=== PATIENT | female | born 1965 | race Caucasian/White ===

== ENCOUNTER 2017-05-01 00:32 | Emergency (ER) | payer MEDICAID ==
[2017-05-01] MEDS ORDERED: PROCHLORPERAZINE 10 MG/2 ML VIAL IVP STA (00:58)
[2017-05-01] MEDS ORDERED: DEXAMETHASONE 10 MG/ML VIAL ONE (00:58)
[2017-05-01] MEDS ORDERED: diphenhydrAMINE INJ 50 MG/ML VIAL IVP STA (00:58)
[2017-05-01] MEDS ORDERED: PROCHLORPERAZINE 10 MG/2 ML VIAL ONE (00:58)
[2017-05-01] MEDS ORDERED: KETOROLAC 60 MG/2 ML VIAL IVP STA (00:58)
[2017-05-01] MEDS ORDERED: KETOROLAC 30 MG/ML VIAL ONE (00:58)
[2017-05-01] MEDS ORDERED: SODIUM CHLORIDE 0.9% 1,000 ML IV ONE ×2 (00:58→00:59)
[2017-05-01] MEDS ORDERED: diphenhydrAMINE INJ 50 MG/ML VIAL ONE (00:58)
[2017-05-01] MEDS ORDERED: DEXAMETHASONE 10 MG/ML VIAL IVP STA (00:58)
--- NOTE | 2017-05-01 01:15 | ED Physician Documentation ---
PD HPI HEADACHE - Stated complaint Stated Complaint: HEADACHE - Chief complaint Chief Complaint: Neuro - History obtained from History obtained from: Patient - History of Present Illness Timing - onset: Enter time (2199), Today Timing - onset during: Rest Timing - duration: Hours Timing - details: Abrupt onset, Still present Worst headache ever?: Worst headache ever? Location: Global Quality: Throbbing Associated symptoms: No: Fever, Stiff neck, Nausea, Vomiting, Weakness, Numbness , Syncope, Seizure, Eye pain, Vision changes Improved by: Rest, Dark room, Quiet Worsened by: Light, Noise, Moving Contributing factors: No: Anticoagulated Similar symptoms before: Diagnosis (migraine) Recently seen: Not recently seen - Additional information Additional information: 51-year-old female with a history of migraines has not had a migraine for about 2 years today she has developed a severe headache and photophobia. She had onset of symptoms at about 10:30 PM tonight. She has been having headaches for the past week on and off. She has not had migraine symptoms for some time. Review of Systems Constitutional: denies: Fever, Chills, Myalgias, Fatigue, Sweats Eyes: reports: Photophobia. denies: Loss of vision, Decreased vision Ears: denies: Loss of hearing, Ear pain Nose: denies: Rhinorrhea / runny nose, Congestion, Foreign Body Throat: denies: Sore throat Cardiac: denies: Chest pain / pressure, Palpitations Respiratory: denies: Dyspnea, Cough, Wheezing GI: reports: Nausea, Vomiting. denies: Abdominal Pain : denies: Dysuria, Frequency Neurologic: reports: Difficulty speaking (at onset of this headache), Headache. denies: Generalized weakness, Focal weakness, Numbness, Syncope, Seizure, Confused, Head injury PD PAST MEDICAL HISTORY - Past Medical History Neuro: Headache/migraine - Past Surgical History Past Surgical History: Yes General: Cholecystectomy Ortho: ACL reconstruction - Allergies Allergies/Adverse Reactions: Allergies Allergy/AdvReac Type Severity Reaction Status Date / Time No Known Drug Allergies Allergy Verified 05/01/17 00:41 - Social History Does the pt smoke?: Yes Smoking Status: Current every day smoker Does the pt drink ETOH?: No Does the pt have substance abuse?: Yes - Immunizations Immunizations are current?: No Immunizations: TDAP >10years/unknown - POLST Patient has POLST: No PD ED PE NORMAL - Vitals Vital signs reviewed: Yes (hypertensive ) - General General: Well developed/nourished, Other (The patient is moaning in pain with a towel over her eyes. 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 operator helper 2-12 intact, No motor deficit, No sensory deficit, Normal speech - Psych Psych: Other (mood is painful and affect is flat) Results - Vitals Vitals: Vital Signs - 24 hr 05/01/17 05/01/17 05/01/17 00:38 01:05 01:09 Temperature 36.4 C L Heart Rate 85 92 81 Respiratory 20 20 18 Rate Blood Pressure 185/101 H 179/108 H 170/96 H O2 Saturation 100 99 99 05/01/17 05/01/17 01:49 02:57 Temperature 36.2 C L Heart Rate 82 90 Respiratory 16 16 Rate Blood Pressure 179/98 H 170/76 H O2 Saturation 94 96 Oxygen O2 Source Room air - Rads (name of study) CT head without Radiology: Prelim report reviewed (Impression: Large volume subarachnoid hemorrhage and moderate ventricular megaly.), EMP read indepedently, See rad report PD MEDICAL DECISION MAKING - ED course Complexity details: considered differential, d/w patient, d/w family ED course: 51-year-old female presents to the emergency department with severe migraine headache she is administered a cocktail of Toradol dexamethasone Compazine Benadryl and 1 L of saline intravenously. The patient does appear to respond to the treatment with improvement in her headache and she is quite sleepy. CT examination of the head reveals extensive subarachnoid hemorrhage.Arrangements are made with the transfer center at [facility] and she will be transferred by [facility]. Dr. Tab Shrestha is the accepting physician. Departure - Departure Disposition: 02 Transfer Acute Care Hosp Clinical Impression: Subarachnoid hemorrhage Condition: Serious
--- NOTE | 2017-05-01 03:20 | CT Preliminary Report ---
Exam: CT Head W/O IMPRESSION: Large volume subarachnoid hemorrhage and moderate ventriculomegaly. RADIA The above findings were discussed with provider Eusebio by Dr. Danilo Bello at 03:18 hrs on 05/01/17 . SITE ID: [id number]
--- NOTE | 2017-05-01 03:23 | CT Report ---
EXAM: CT HEAD EXAM DATE: 05/01/2017 03:02 AM. CLINICAL HISTORY: Severe headache. COMPARISON: None. TECHNIQUE: Multiaxial CT images were obtained from the foramen magnum to the vertex. IV contrast: Non e. Reformats: Coronal. In accordance with CT protocol optimization, one or more of the following dose reduction techniques w ere utilized for this exam: automated exposure control, adjustment of mA and/or KV based on patient s ize, or use of iterative reconstructive technique. FINDINGS: Parenchyma: No intraparenchymal hemorrhage. No evidence of mass, midline shift, or CT findings of inf arction. [place]-white differentiation is distinct. Extraaxial Spaces: There is moderate volume subarachnoid hemorrhage involving anterior interhemispher ic fissure, bilateral sylvian fissures, and suprasellar cistern. Ventricles: There is moderate ventriculomegaly. There is small volume intraventricular hemorrhage. Sinuses: There is mild paranasal sinus mucosal thickening. No sinus fluid levels. Bones: No evidence of fracture or calvarial defect. Other: None. IMPRESSION: Large volume subarachnoid hemorrhage and moderate ventriculomegaly. RADIA The above findings were discussed with provider Eusebio by Dr. Danilo Bello at 03:18 hrs on 05/01/17 . Referring Provider Line: [phone] SITE ID: [id number]
[2017-05-01 04:12] VITALS: BP 156/69
== END 2017-05-01 04:12 | disposition short-term general hospital (02) ==
LOC: ED 00:32
DX: I60.9 Nontraumatic subarachnoid hemorrhage, unspecified (principal); H53.8 Other visual disturbances; F17.200 Nicotine dependence, unspecified, uncomplicated
CPT/HCPCS: 70450; 96361; 96374; 96375; 99284; 99285

== ENCOUNTER 2017-05-23 08:48 | Outpatient (CLI) | payer MEDICAID ==
[2017-05-23 13:32] LABS: CHOL/HDL RATIO 5.6 (<4.4); CHOLESTEROL 217 mg/dL; HDL CHOLESTEROL 39 mg/dL; LDL/HDL RATIO 3.2 (<4.4); SODIUM 138 mmol/L (135-145); TRIGLYCERIDES 259 mg/dL; VLDL CHOLESTEROL 52 mg/dL
== END 2017-05-23 08:49 | disposition home or self-care (01) ==
LOC: LAB.N 08:48
PROVIDERS: ATTEND Nurse Practitioner Family
DX: Z13.220 Encounter for screening for lipoid disorders (principal); E87.1 Hypo-osmolality and hyponatremia
CPT/HCPCS: 36415; 80061; 84295

== ENCOUNTER 2017-06-10 08:18 | Outpatient (CLI) | payer MEDICAID ==
--- NOTE | 2017-06-12 12:12 | Mammography Report ---
DIGITAL BILATERAL SCREENING MAMMOGRAM: 06/10/2017 CLINICAL HISTORY: Asymptomatic 51-year-old female, baseline study. FINDINGS: Heterogeneously dense tissue is present. This pattern does limit mammographic sensitivity. RIGHT BREAST: No definite suspicious mass, distortion or pleomorphic calcifications. LEFT BREAST: There is an obscured mass in the upper-outer middle position. Recommend targeted diagnostic evaluation. The remainder of the parenchymal pattern is unremarkable. IMPRESSION: 1. RIGHT BREAST: NO SUSPICIOUS FINDINGS (BIRADS CATEGORY: 1, NEGATIVE). 2. LEFT BREAST: OBSCURED MASS ASYMMETRY IN THE UPPER-OUTER MIDDLE POSITION. RECOMMEND TARGETED DIAGNOSTIC EVALUATION. THE FINAL IMPRESSION IS PENDING AT THIS TIME. (BIRADS CATEGORY: 0, INCOMPLETE). STANDARD QUALIFYING STATEMENTS 1. This examination was reviewed with the aid of Computed-Aided Detection (CAD) . 2. A negative or benign imaging report should not delay biopsy if clinically suspicious findings are present. Consider surgical consultation if warranted. More than 5% of cancers are not identified by imaging. 3. Dense breasts may obscure an underlying neoplasm. JOB #: [id number] EXT JOB #: [id number] BE
== END 2017-06-10 08:19 | disposition home or self-care (01) ==
LOC: DI 08:18
PROVIDERS: ATTEND Nurse Practitioner Family
DX: Z12.31 Encounter for screening mammogram for malignant neoplasm of breast (principal); N63 Unspecified lump in breast
CPT/HCPCS: 77067

== ENCOUNTER 2017-07-10 09:09 | Outpatient (CLI) | payer MEDICAID ==
--- NOTE | 2017-07-10 12:26 | Ultrasound Report ---
ULTRASOUND LEFT UPPER OUTER QUADRANT: 07/10/2017 CLINICAL INDICATION: Persistent circumscribed nodule on mammogram. TECHNIQUE: Real-time scanning was performed with sales representative door to door static images obtained. FINDINGS: Ultrasound of the left upper outer quadrant was performed. At the 12:30 position, approxi mately 10 cm from the nipple, there is a 1.5 x 1.3 x 0.8 cm simple cyst. Just adjacent to this is a second, 1.1 x 1.0 x 0.6 cm cyst. No sonographically suspicious findings are identified. IMPRESSION: SIMPLE CYSTS, ACCOUNTING FOR THE MAMMOGRAPHIC ABNORMALITY. RECOMMENDATION: Routine annual screening unless otherwise clinically indicated. BIRADS CATEGORY 2 - BENIGN FINDINGS. JOB #: [id number] EXT JOB #:
--- NOTE | 2017-07-10 12:28 | Mammography Report ---
DIGITAL DIAGNOSTIC LEFT MAMMOGRAM: 07/10/2017 CLINICAL INDICATION: Possible nodule on baseline. TECHNIQUE: Left true lateral and spot compression views. COMPARISON: 06/10/2017 FINDINGS: The left breast again demonstrates heterogeneously dense fibroglandular parenchyma. In th e left upper, slightly outer posterior breast, a circumscribed 1.5 cm nodule persists on additional c ompression. No associated calcifications are seen. Please also refer to left breast ultrasound of t he same day. IMPRESSION: BENIGN FINDINGS, WITH SIMPLE CYSTS ON ULTRASOUND ACCOUNTING FOR THE MAMMOGRAPHIC ABNORMA LITY. RECOMMENDATION: Routine annual screening unless otherwise clinically indicated. BIRADS CATEGORY 2 - BENIGN FINDINGS. STANDARD QUALIFYING STATEMENTS 1. This examination was reviewed with the aid of Computer-Aided Detection (CAD). 2. A negative or benign imaging report should not delay biopsy if clinically suspicious findings are present. Consider surgical consultation if warranted. More than 5% of cancers are not identified by i maging. 3. Dense breasts may obscure an underlying neoplasm. JOB #: [id number] EXT JOB #:[id number]
== END 2017-07-10 09:10 | disposition home or self-care (01) ==
LOC: DI 09:09
PROVIDERS: ATTEND Nurse Practitioner Family
DX: N60.02 Solitary cyst of left breast (principal)
CPT/HCPCS: 76642

== ENCOUNTER 2017-07-31 10:41 | Day surgery (SDC) | payer MEDICAID ==
[2017-07-31] MEDS ORDERED: fentaNYL 100 MCG/2 ML VIAL IVP ONE (10:42)
[2017-07-31] MEDS ORDERED: MIDAZOLAM 2 MG/2 ML VIAL IVP ONE (10:42)
[2017-07-31] MEDS ORDERED: LACTATED RINGERS 1,000 ML IV ONE ×3 (11:14→13:56)
[2017-07-31 11:18] LABS: HCG UR QUAL NEGATIVE
[2017-07-31 15:14] VITALS: BP 130/58
== END 2017-07-31 10:42 | disposition home or self-care (01) ==
LOC: SDS 10:41
PROVIDERS: ATTEND Surgery
PROC: 0DBL8ZZ Excision of Transverse Colon, Via Natural or Artificial Opening Endoscopic (ICD-10-PCS; 2017-07-31)
PROC: 0DBN8ZZ Excision of Sigmoid Colon, Via Natural or Artificial Opening Endoscopic (ICD-10-PCS; principal; 2017-07-31 12:00)
DX: Z12.11 Encounter for screening for malignant neoplasm of colon (principal); D12.5 Benign neoplasm of sigmoid colon; D12.3 Benign neoplasm of transverse colon; K64.8 Other hemorrhoids; F15.10 Other stimulant abuse, uncomplicated; F17.210 Nicotine dependence, cigarettes, uncomplicated
CPT/HCPCS: 45380; 81025; J7120

== ENCOUNTER 2018-05-26 08:00 | Outpatient (CLI) | payer MEDICAID ==
[2018-05-26 13:16] LABS: CHOL/HDL RATIO 4.3 (<4.4); CHOLESTEROL 154 mg/dL; HDL CHOLESTEROL 36 mg/dL; LDL CHOLESTEROL,CALCULATED 83 mg/dL; LDL/HDL RATIO 2.3 (<4.4); VLDL CHOLESTEROL 35 mg/dL
== END 2018-05-26 08:01 | disposition home or self-care (01) ==
LOC: LAB.N 08:00
PROVIDERS: ATTEND Nurse Practitioner Family
DX: E78.5 Hyperlipidemia, unspecified (principal)
CPT/HCPCS: 36415; 80061; 83721

== ENCOUNTER 2018-06-09 08:00 | Outpatient (CLI) | payer MEDICAID ==
[2018-06-09 13:51] LABS: BASOPHILS # (AUTO) 0.1 10^3/uL (0.0-0.1); BASOPHILS % (AUTO) 1.1 %; EOSINOPHILS # (AUTO) 0.1 10^3/uL (0.0-0.7); HGB - HEMOGLOBIN 9.1 g/dL (12.0-16.0); LYMPHOCYTES # (AUTO) 1.5 10^3/uL (1.5-3.5); LYMPHOCYTES % (AUTO) 15.5 %; MEAN CORPUSCULAR HEMOGLOBIN 23.7 pg (27.0-31.0); MEAN CORPUSCULAR HGB CONC 30.6 g/dL (32.0-36.0); MEAN CORPUSCULAR VOLUME 77.6 fL (81.0-99.0); MEAN PLATELET VOLUME 8.7 fL (7.9-10.8); MONOCYTES # (AUTO) 0.5 10^3/uL (0.0-1.0); NEUTROPHILS # (AUTO) 7.7 10^3/uL (1.5-6.6); NEUTROPHILS % (AUTO) 77.4 %; PLT - PLATELET COUNT 443 10^3/uL (130-450); RED BLOOD COUNT 3.82 10^6/uL (4.20-5.40); RED CELL DISTRIBUTION WIDTH 17.1 % (12.0-15.0); WHITE BLOOD COUNT 9.9 x10^3/uL (4.8-10.8)
[2018-06-09 14:17] LABS: ALBUMIN 3.1 g/dL (3.2-5.5); ALBUMIN/GLOBULIN RATIO 0.8 (1.0-2.2); BILIRUBIN,TOTAL 0.7 mg/dL (0.2-1.0); CALCIUM 8.1 mg/dL (8.5-10.3); CREATININE 0.7 mg/dL (0.4-1.0); TOTAL PROTEIN 7.2 g/dL (6.7-8.2)
[2018-06-09 15:10] LABS: HB2 TOTAL 9.6 g/dL; HEMOGLOBIN A1C 0.41 g/dL; HEMOGLOBIN A1C % 6.1 % (4.6-6.2)
== END 2018-06-09 08:01 | disposition home or self-care (01) ==
LOC: LAB.N 08:00
PROVIDERS: ATTEND Nurse Practitioner Family
DX: R03.0 Elevated blood-pressure reading, without diagnosis of hypertension (principal); E78.1 Pure hyperglyceridemia
CPT/HCPCS: 36415; 80053; 83036; 84443; 85025

== ENCOUNTER 2018-06-11 09:17 | Outpatient (CLI) | payer MEDICAID ==
[2018-06-11 19:24] LABS: % IRON SATURATION 4 % (20-50); IRON 22 ug/dL (28-170); TOTAL IRON BINDING CAPACITY 567 ug/dL (250-450); TRANSFERRIN 405 mg/dL (192-382)
[2018-06-12 12:03] LABS: HEPATITIS C ANTIBODY NON-REACTIVE (NON-REACTIVE)
[2018-06-12 12:16] LABS: HEPATITIS B SURFACE ANTIGEN NON-REACTIVE (NON-REACTIVE)
== END 2018-06-11 09:18 | disposition home or self-care (01) ==
LOC: LAB.N 09:17
PROVIDERS: ATTEND Nurse Practitioner Family
DX: D50.9 Iron deficiency anemia, unspecified (principal); R94.5 Abnormal results of liver function studies
CPT/HCPCS: 36415; 82728; 83540; 84466; 86317; 86704; 86709; 86803; 87340

== ENCOUNTER 2018-06-22 08:00 | Outpatient (CLI) | payer MEDICAID | END 2018-06-22 08:01 | disposition home or self-care (01) | LOC: LAB.N 08:00 | PROVIDERS: ATTEND Nurse Practitioner Family | DX: I10 Essential (primary) hypertension (principal) | CPT/HCPCS: 36415; 84132 ==

== ENCOUNTER 2018-06-26 08:17 | Outpatient (CLI) | payer MEDICAID | END 2018-06-26 08:18 | disposition home or self-care (01) | LOC: LAB.N 08:17 | PROVIDERS: ATTEND Nurse Practitioner Family | DX: R06.09 Other forms of dyspnea (principal) | CPT/HCPCS: 36415; 83880; 85379 ==

== ENCOUNTER 2018-07-03 07:55 | Outpatient (CLI) | payer MEDICAID ==
[2018-07-03 12:27] LABS: BASOPHILS # (AUTO) 0.1 10^3/uL (0.0-0.1); BASOPHILS % (AUTO) 1.1 %; EOSINOPHILS # (AUTO) 0.1 10^3/uL (0.0-0.7); EOSINOPHILS % (AUTO) 0.7 %; HGB - HEMOGLOBIN 9.7 g/dL (12.0-16.0); LYMPHOCYTES # (AUTO) 1.6 10^3/uL (1.5-3.5); LYMPHOCYTES % (AUTO) 16.4 %; MEAN CORPUSCULAR HEMOGLOBIN 24.7 pg (27.0-31.0); MEAN CORPUSCULAR HGB CONC 30.4 g/dL (32.0-36.0); MEAN CORPUSCULAR VOLUME 81.1 fL (81.0-99.0); MEAN PLATELET VOLUME 8.2 fL (7.9-10.8); MONOCYTES # (AUTO) 0.5 10^3/uL (0.0-1.0); MONOCYTES % (AUTO) 5.5 %; NEUTROPHILS # (AUTO) 7.4 10^3/uL (1.5-6.6); NEUTROPHILS % (AUTO) 76.3 %; PLT - PLATELET COUNT 490 10^3/uL (130-450); RED BLOOD COUNT 3.94 10^6/uL (4.20-5.40); WHITE BLOOD COUNT 9.7 x10^3/uL (4.8-10.8)
[2018-07-03 13:19] LABS: ALBUMIN 3.7 g/dL (3.2-5.5); ALBUMIN/GLOBULIN RATIO 0.9 (1.0-2.2); CALCIUM 8.8 mg/dL (8.5-10.3); CREATININE 0.9 mg/dL (0.4-1.0); TOTAL PROTEIN 7.7 g/dL (6.7-8.2)
== END 2018-07-03 07:56 | disposition home or self-care (01) ==
LOC: LAB.N 07:55
PROVIDERS: ATTEND Nurse Practitioner Family
DX: R06.02 Shortness of breath (principal)
CPT/HCPCS: 36415; 80053; 82947; 85025

== ENCOUNTER 2018-07-04 07:56 | Outpatient (CLI) | payer MEDICAID ==
--- NOTE | 2018-07-04 16:49 | XRAY Report ---
Reason: SHORTNESS OF BREATH WITH EXERTION, TOBACCO ABUSE Procedure Date: 07/04/2018 Accession Number: [id number] / [id number] Procedure: XR - Chest 2 View X-Ray CPT Code: 92684 FULL RESULT: EXAM: CHEST RADIOGRAPHY EXAM DATE: 07/04/2018 09:26 AM. CLINICAL HISTORY: SHORTNESS OF BREATH WITH EXERTION, TOBACCO ABUSE. COMPARISON: None. TECHNIQUE: 2 views. FINDINGS: Lungs/Pleura: No focal opacities evident. No pleural effusion. No pneumothorax. Normal volumes. Mediastinum: Moderate cardiomegaly. Other: None. IMPRESSION: Moderate cardiomegaly. RADIA
== END 2018-07-04 07:57 | disposition home or self-care (01) ==
LOC: DI 07:56
PROVIDERS: ATTEND Nurse Practitioner Family
DX: I51.7 Cardiomegaly (principal); I27.20 Pulmonary hypertension, unspecified; I49.1 Atrial premature depolarization; R06.02 Shortness of breath
CPT/HCPCS: 71046; 93005; 93306; 94060

== ENCOUNTER 2018-07-24 08:55 | Outpatient (CLI) | payer MEDICAID ==
[2018-07-24 12:33] LABS: BASOPHILS # (AUTO) 0.1 10^3/uL (0.0-0.1); BASOPHILS % (AUTO) 1.1 %; EOSINOPHILS # (AUTO) 0.1 10^3/uL (0.0-0.7); EOSINOPHILS % (AUTO) 0.8 %; HGB - HEMOGLOBIN 10.9 g/dL (12.0-16.0); LYMPHOCYTES # (AUTO) 1.8 10^3/uL (1.5-3.5); LYMPHOCYTES % (AUTO) 21.8 %; MEAN CORPUSCULAR HGB CONC 30.9 g/dL (32.0-36.0); MEAN CORPUSCULAR VOLUME 80.7 fL (81.0-99.0); MEAN PLATELET VOLUME 8.1 fL (7.9-10.8); MONOCYTES # (AUTO) 0.6 10^3/uL (0.0-1.0); NEUTROPHILS # (AUTO) 5.9 10^3/uL (1.5-6.6); NEUTROPHILS % (AUTO) 69.3 %; PLT - PLATELET COUNT 457 10^3/uL (130-450); RED BLOOD COUNT 4.36 10^6/uL (4.20-5.40); RED CELL DISTRIBUTION WIDTH 22.9 % (12.0-15.0); WHITE BLOOD COUNT 8.5 x10^3/uL (4.8-10.8)
[2018-07-24 12:40] LABS: ALBUMIN 3.5 g/dL (3.2-5.5); ALBUMIN/GLOBULIN RATIO 0.9 (1.0-2.2); BILIRUBIN,TOTAL 0.9 mg/dL (0.2-1.0); CALCIUM 8.8 mg/dL (8.5-10.3); CREATININE 0.9 mg/dL (0.4-1.0); TOTAL PROTEIN 7.6 g/dL (6.7-8.2)
== END 2018-07-24 08:56 | disposition home or self-care (01) ==
LOC: LAB.N 08:55
PROVIDERS: ATTEND Internal Medicine
DX: I50.21 Acute systolic (congestive) heart failure (principal)
CPT/HCPCS: 36415; 80053; 83735; 85025

== ENCOUNTER 2018-08-14 09:19 | Outpatient (CLI) | payer MEDICAID ==
[2018-08-14 09:44] LABS: BASOPHILS # (AUTO) 0.1 10^3/uL (0.0-0.1); BASOPHILS % (AUTO) 1.3 %; EOSINOPHILS # (AUTO) 0.1 10^3/uL (0.0-0.7); EOSINOPHILS % (AUTO) 1.8 %; HGB - HEMOGLOBIN 13.4 g/dL (12.0-16.0); LYMPHOCYTES # (AUTO) 1.5 10^3/uL (1.5-3.5); LYMPHOCYTES % (AUTO) 22.4 %; MEAN CORPUSCULAR HEMOGLOBIN 26.3 pg (27.0-31.0); MEAN CORPUSCULAR HGB CONC 31.9 g/dL (32.0-36.0); MEAN CORPUSCULAR VOLUME 82.5 fL (81.0-99.0); MEAN PLATELET VOLUME 8.1 fL (7.9-10.8); MONOCYTES # (AUTO) 0.4 10^3/uL (0.0-1.0); MONOCYTES % (AUTO) 6.4 %; NEUTROPHILS # (AUTO) 4.5 10^3/uL (1.5-6.6); NEUTROPHILS % (AUTO) 68.1 %; PLT - PLATELET COUNT 318 10^3/uL (130-450); RED BLOOD COUNT 5.11 10^6/uL (4.20-5.40); RED CELL DISTRIBUTION WIDTH 23.2 % (12.0-15.0); WHITE BLOOD COUNT 6.6 x10^3/uL (4.8-10.8)
[2018-08-14 09:58] LABS: ALBUMIN 3.8 g/dL (3.2-5.5); BILIRUBIN,TOTAL 0.7 mg/dL (0.2-1.0); CALCIUM 9.4 mg/dL (8.5-10.3); CREATININE 0.9 mg/dL (0.4-1.0); TOTAL PROTEIN 7.5 g/dL (6.7-8.2)
[2018-08-14 10:12] LABS: PLATELET ESTIMATE, MANUAL NORMAL (130-450,000) (NORMAL); PLATELET MORPHOLOGY NORMAL APPEARANCE (NORMAL)
== END 2018-08-14 09:20 | disposition home or self-care (01) ==
LOC: LAB 09:19
PROVIDERS: ATTEND Nurse Practitioner Family
DX: R06.02 Shortness of breath (principal)
CPT/HCPCS: 36415; 80053; 85025

== ENCOUNTER 2018-08-15 09:49 | Outpatient (CLI) | payer MEDICAID ==
[2018-08-15] MEDS ORDERED: IOPAMIDOL-300 100 ML VIAL ONE (10:19)
[2018-08-15] MEDS ORDERED: IOPAMIDOL-300 100 ML VIAL IVP ONE (11:40)
--- NOTE | 2018-08-16 00:07 | CT Report ---
Reason: RESTRICTIVE LUNG DISEASE Procedure Date: 08/15/2018 Accession Number: [id number] / [id number] Procedure: CT - Chest Angio (PE) CPT Code: FULL RESULT: EXAM: CT ANGIOGRAM CHEST EXAM DATE: 08/15/2018 10:53 AM. CLINICAL HISTORY: Restrictive lung disease. COMPARISON: None. TECHNIQUE: Routine helical imaging was performed through the chest in the pulmonary arterial phase. IV Contrast: 80 mL of Isovue 300. Reconstructions: Coronal 3-D MIP reconstructions.Sagittal and coronal. In accordance with CT protocol optimization, one or more of the following dose reduction techniques were utilized for this exam: automated exposure control, adjustment of mA and/or KV based on patient size, or use of iterative reconstructive technique. FINDINGS: Pulmonary Arteries: Diagnostic quality: Adequate through the segmental arteries. No evidence for acute or chronic pulmonary emboli. RV/LV is within normal limits. There is no interventricular septal bowing. There is no reflux of contrast material in the IVC. Lungs/Pleura: No consolidation, nodules, or edema. No effusions or pneumothorax. Mediastinum: Normal. No cardiac enlargement or adenopathy. Thoracic Aorta: Unremarkable. Upper Abdomen: Unremarkable. Other: None. IMPRESSION: Normal pulmonary CT angiogram. No pulmonary emboli. RADIA
--- NOTE | 2018-08-16 09:38 | CT Report ---
Reason: RESTRICTIVE LUNG DISEASE Procedure Date: 08/15/2018 Accession Number: [id number] / [id number] Procedure: CT - Chest W/O CPT Code: FULL RESULT: EXAM: CT CHEST EXAM DATE: 08/15/2018 10:53 AM. CLINICAL HISTORY: RESTRICTIVE LUNG DISEASE. COMPARISONS: None. TECHNIQUE: High-resolution CT was performed utilizing thin section imaging in supine and prone position. Multiaxial helical CT imaging was performed through the chest. IV contrast: None. Reconstructions: Coronal and sagittal. In accordance with CT protocol optimization, one or more of the following dose reduction techniques were utilized for this exam: automated exposure control, adjustment of mA and/or KV based on patient size, or use of iterative reconstructive technique. FINDINGS: Lungs/Pleura: No effusions. Patent central airways. No interlobular septal thickening. No distortion. No traction bronchiolectasis. No honeycombing. No opacities. No significant air trapping. Mediastinum: Small amount of coronary artery atherosclerotic calcification in the left anterior descending coronary artery. Heart is normal in size. No pericardial effusion. No mediastinal or hilar lymphadenopathy. Bones: Moderate lower cervical spondylosis. Visualized Abdomen: Cholecystectomy. Lipid rich left adrenal adenoma measures 1.8 cm. Subcentimeter right adrenal nodule, too small to characterize. Other: None. IMPRESSION: No evidence of interstitial lung disease RADIA
== END 2018-08-15 09:50 | disposition home or self-care (01) ==
LOC: DI 09:49
PROVIDERS: ATTEND Internal Medicine
DX: J98.4 Other disorders of lung (principal)
CPT/HCPCS: 71250; 71275; Q9967

== ENCOUNTER 2018-08-18 07:47 | Outpatient (CLI) | payer MEDICAID | END 2018-08-18 07:48 | disposition home or self-care (01) | LOC: LAB 07:47 | PROVIDERS: ATTEND Nurse Practitioner Family | DX: R06.02 Shortness of breath (principal) | CPT/HCPCS: 36415; 82947 ==

== ENCOUNTER 2019-05-12 08:00 | Outpatient (CLI) | payer MEDICAID ==
[2019-05-12 12:01] LABS: CALCIUM 9.2 mg/dL (8.5-10.3); CREATININE 0.9 mg/dL (0.4-1.0)
== END 2019-05-12 23:59 | disposition home or self-care (01) ==
LOC: LAB.N 08:00
PROVIDERS: ATTEND Nurse Practitioner
DX: I50.22 Chronic systolic (congestive) heart failure (principal)
CPT/HCPCS: 36415; 80048

== ENCOUNTER 2019-06-18 08:00 | Outpatient (CLI) | payer MEDICAID ==
[2019-06-18 12:59] LABS: CHOL/HDL RATIO 4.4 (<4.4); CHOLESTEROL 180 mg/dL; HDL CHOLESTEROL 41 mg/dL; LDL CHOLESTEROL,CALCULATED 93 mg/dL; LDL/HDL RATIO 2.3 (<4.4); VLDL CHOLESTEROL 46 mg/dL
[2019-06-18 13:24] LABS: HB2 TOTAL 14.1 g/dL; HEMOGLOBIN A1C 0.59 g/dL
== END 2019-06-18 23:59 | disposition home or self-care (01) ==
LOC: LAB.N 08:00
PROVIDERS: ATTEND Family Medicine
DX: E11.9 Type 2 diabetes mellitus without complications (principal); E78.5 Hyperlipidemia, unspecified
CPT/HCPCS: 36415; 80061; 82043; 83036; 83721

== ENCOUNTER 2019-07-06 08:00 | Outpatient (CLI) | payer MEDICAID ==
[2019-07-06 12:19] LABS: CALCIUM 8.4 mg/dL (8.5-10.3); CREATININE 0.8 mg/dL (0.4-1.0)
== END 2019-07-06 23:59 | disposition home or self-care (01) ==
LOC: LAB.N 08:00
PROVIDERS: ATTEND Internal Medicine
DX: I50.22 Chronic systolic (congestive) heart failure (principal)
CPT/HCPCS: 36415; 80048

== ENCOUNTER 2019-07-21 14:32 | Outpatient (CLI) | payer MEDICAID ==
--- NOTE | 2019-07-22 09:29 | Mammography Report ---
Reason: SCREENING MAMMO Procedure Date: 07/21/2019 Accession Number: [id number] / [id number] Procedure: [facility] - Screening Mammo w/Richar CPT Code: FULL RESULT: EXAM: Screening Mammo w/Richar DATE: 07/21/2019 3:12 PM CLINICAL HISTORY: Screening encounter. TECHNIQUE: (B) - Bilateral CC and MLO views were obtained. COMPARISON: 07/10/2017 and 06/10/2017. PARENCHYMAL PATTERN: (A) - The breast(s) demonstrate(s) scattered fibroglandular densities. FINDINGS: There are no suspicious masses, calcifications, or areas of distortion. IMPRESSION: Negative examination. BI-RADS category 1. RECOMMENDATION: (ANNUAL) - Recommend routine annual screening mammography. BI-RADS CATEGORY: (1) - Negative. STANDARD QUALIFYING STATEMENTS: 1. This examination was not reviewed with the aid of Computer-Aided Detection (CAD). 2. A negative or benign imaging report should not preclude biopsy if clinically suspicious findings are present. 3. Dense breasts may obscure an underlying neoplasm. 4. This examination was reviewed with the aid of 3D breast imaging (tomosynthesis).
== END 2019-07-21 14:33 | disposition home or self-care (01) ==
LOC: DI 14:32
PROVIDERS: ATTEND Family Medicine
DX: Z12.31 Encounter for screening mammogram for malignant neoplasm of breast (principal)
CPT/HCPCS: 77063; 77067

== ENCOUNTER 2019-09-03 18:11 | Emergency (ER) | payer MEDICAID ==
[2019-09-03 18:42] LABS: BASOPHILS # (AUTO) 0.1 10^3/uL (0.0-0.1); BASOPHILS % (AUTO) 0.9 %; EOSINOPHILS # (AUTO) 0.2 10^3/uL (0.0-0.7); EOSINOPHILS % (AUTO) 1.4 %; HGB - HEMOGLOBIN 12.7 g/dL (12.0-16.0); LYMPHOCYTES # (AUTO) 2.7 10^3/uL (1.5-3.5); MEAN CORPUSCULAR HEMOGLOBIN 29.3 pg (27.0-31.0); MEAN CORPUSCULAR HGB CONC 30.8 g/dL (32.0-36.0); MEAN CORPUSCULAR VOLUME 94.9 fL (81.0-99.0); MEAN PLATELET VOLUME 9.8 fL (7.9-10.8); MONOCYTES # (AUTO) 0.7 10^3/uL (0.0-1.0); MONOCYTES % (AUTO) 5.9 %; NEUTROPHILS # (AUTO) 8.6 10^3/uL (1.5-6.6); NEUTROPHILS % (AUTO) 69.2 %; PLT - PLATELET COUNT 482 10^3/uL (130-450); RED BLOOD COUNT 4.34 10^6/uL (4.20-5.40); RED CELL DISTRIBUTION WIDTH 14.6 % (12.0-15.0); WHITE BLOOD COUNT 12.5 x10^3/uL (4.8-10.8)
[2019-09-03 18:53] LABS: ALBUMIN 3.9 g/dL (3.2-5.5); BILIRUBIN,TOTAL 0.5 mg/dL (0.2-1.0); CALCIUM 9.4 mg/dL (8.5-10.3); TOTAL PROTEIN 7.8 g/dL (6.7-8.2)
--- NOTE | 2019-09-03 19:32 | XRAY Report ---
Reason: CP Procedure Date: 09/03/2019 Accession Number: [id number] / [id number] Procedure: XR - Chest 1 View X-Ray CPT Code: 12492 Final Report FULL RESULT: EXAM: CHEST RADIOGRAPHY EXAM DATE: 09/03/2019 07:02 PM. CLINICAL HISTORY: Chest pain COMPARISON: CHEST 2 VIEW 07/04/2018 9:17 AM CHEST W/O 08/15/2018 10:32 AM. TECHNIQUE: 1 view. FINDINGS: Lungs/Pleura: No focal opacities evident. No pleural effusion. No pneumothorax. Mediastinum: Heart size upper normal. No mediastinal shift. Other: Single lead left chest pacer. IMPRESSION: Borderline cardiomegaly without acute process seen in the chest. RADIA
[2019-09-03] MEDS ORDERED: BENZONATATE 100 MG CAPSULE PO STA (21:00)
[2019-09-03] MEDS ORDERED: CHERRY SYRUP 10 ML UDC PO ONE (21:00)
[2019-09-03] MEDS ORDERED: ALBUTEROL NEB 2.5 MG/3 ML INH STA (21:00)
[2019-09-03] MEDS ORDERED: DEXAMETHASONE 10 MG/ML VIAL PO STA (21:00)
--- NOTE | 2019-09-03 21:51 | ED Physician Documentation ---
PD HPI DYSPNEA - Stated complaint Stated Complaint: SOA, PRESSURE IN CHEST - Chief complaint Chief Complaint: Cardiac - History obtained from History obtained from: Patient - History of Present Illness Timing - onset: How many days ago (several days of increasing dyspnea with activity, and developed cough. Initially with nasal congestion, but 2 days of cough nonproductive. Heavy feeling in chest. No pain per se.) Timing - onset during: Light activity. No: Rest Timing - duration: Days (several days) Timing - details: Gradual onset, Still present Inciting event(s): URI. No: Out of meds, Immobilization/travel Improved by: Inhaler/neb Associated symptoms: Cough, Wheezing, Chest pain / discomfort, Bilateral edema (mild chronic due to cardiomyopathy but has not had increased edema lately.). No: Fever Similar symptoms before: Diagnosis (CHF in the past 1-2 years ago due to cardiomyopathy. No IN. She says her EF was 28%. Normal heart cath. Has been doing well lately. No history of asthma nor COPD per se but had an albuterol MDI which had been Rx for use initially when she had the dyspnea before Dx with CHF.) Recently seen: Not recently seen Review of Systems Constitutional: denies: Fever, Chills Nose: reports: Congestion (several days). denies: Rhinorrhea / runny nose Throat: denies: Sore throat Cardiac: reports: Chest pain / pressure. denies: Palpitations, Calf pain Respiratory: reports: Dyspnea, Cough (several days) GI: denies: Abdominal Pain, Nausea, Vomiting, Diarrhea, Bloody / black stool : denies: Dysuria, Frequency Musculoskeletal: denies: Neck pain, Back pain PD PAST MEDICAL HISTORY - Past Medical History Past Medical History: Yes Cardiovascular: None Respiratory: None Endocrine/Autoimmune: None GI: None : None HEENT: None Psych: None Musculoskeletal: Osteoarthritis Derm: None - Past Surgical History Past Surgical History: Yes General: Cholecystectomy Ortho: Other Cardiovascular:  Neuro: Other - Present Medications Home Medications: Ambulatory Orders Medication Instructions Recorded Confirmed Benzonatate [Tessalon Perle] 100 mg PO TID PRN #25 capsule 09/03/19 dexAMETHasone [Decadron] 4 mg PO DAILY #5 tablet 09/03/19 - Allergies Allergies/Adverse Reactions: Allergies Allergy/AdvReac Type Severity Reaction Status Date / Time No Known Drug Allergies Allergy Verified 09/03/19 18:25 - Social History Does the pt smoke?: Yes Smoking Status: Current every day smoker Does the pt drink ETOH?: No Does the pt have substance abuse?: Yes - Immunizations Immunizations are current?: No Immunizations: TDAP >10years/unknown - POLST Patient has POLST: No PD ED PE NORMAL - Vitals Vital signs reviewed: Yes - General General: Alert and oriented X 3, No acute distress, Well developed/nourished - HEENT HEENT: Pharynx benign - Neck Neck: Supple, no meningeal sign, No adenopathy - Cardiac Cardiac: RRR, No murmur - Respiratory Respiratory: Clear bilaterally, Other (no wheeze nor crackles heard) - Abdomen Abdomen: Soft, Non tender - Derm Derm: Normal color - Extremities Extremities: No tenderness to palpate, Normal ROM s pain, No edema, No calf tenderness / cord - Neuro Neuro: Alert and oriented X 3, No motor deficit, Normal speech Results - Vitals Vitals: Vital Signs - 24 hr 09/03/19 09/03/19 09/03/19 18:19 19:31 21:00 Temperature 36.9 C Heart Rate 67 65 66 Respiratory 18 29 H 20 Rate Blood Pressure 108/60 128/62 132/63 H Blood Pressure 122/63 [Left] O2 Saturation 100 95 99 09/03/19 09/03/19 09/03/19 21:08 21:43 21:57 Temperature 36.7 C Heart Rate 65 66 63 Respiratory 25 H 18 22 Rate Blood Pressure 132/62 H 119/81 H Blood Pressure [Left] O2 Saturation 98 98 Oxygen O2 Source Room air - EKG (time done) 18:30 Rate: Rate (enter#) (62) Rhythm: NSR [place]: Normal Intervals: Normal VT QRS: Normal Ischemia: Normal ST segments. No: ST elevation c/w ischemia, ST depression - Labs Labs: Laboratory Tests 09/03/19 09/03/19 09/03/19 18:35 18:35 18:35 WBC 12.5 H RBC 4.34 Hgb 12.7 Hct 41.2 MCV 94.9 MCH 29.3 MCHC 30.8 L RDW 14.6 Plt Count 482 H MPV 9.8 Neut # (Auto) 8.6 H Lymph # (Auto) 2.7 [place] # (Auto) 0.7 Eos # (Auto) 0.2 Baso # (Auto) 0.1 Absolute Nucleated RBC 0.00 Nucleated RBC % 0.0 Sodium 138 Potassium 4.5 Chloride 102 Carbon Dioxide 28 Anion Gap 8.0 BUN 16 Creatinine 1.0 Estimated GFR (MDRD) 58 L Glucose 99 Calcium 9.4 Magnesium Total Bilirubin 0.5 AST 35 ALT 71 H Alkaline Phosphatase 111 Troponin I High Sens 15.7 H* B-Natriuretic Peptide Total Protein 7.8 Albumin 3.9 Globulin 3.9 Albumin/Globulin Ratio 1.0 Lipase 19 L 09/03/19 09/03/19 18:35 18:35 WBC RBC Hgb Hct MCV MCH MCHC RDW Plt Count MPV Neut # (Auto) Lymph # (Auto) [place] # (Auto) Eos # (Auto) Baso # (Auto) Absolute Nucleated RBC Nucleated RBC % Sodium Potassium Chloride Carbon Dioxide Anion Gap BUN Creatinine Estimated GFR (MDRD) Glucose Calcium Magnesium 2.0 Total Bilirubin AST ALT Alkaline Phosphatase Troponin I High Sens B-Natriuretic Peptide 1263 H Total Protein Albumin Globulin Albumin/Globulin Ratio Lipase - Rads (name of study) chest xray Radiology: Prelim report reviewed (no acute process. ), See rad report PD MEDICAL DECISION MAKING - ED course Complexity details: reviewed results, considered differential (does have history of cardiomyopathy but current symptoms sound like URI and does not have findings to suggest acute CHF. ), d/w patient Departure - Departure Disposition: 01 Home, Self Care Clinical Impression: Dyspnea Qualifiers: Dyspnea type: shortness of breath Qualified Code(s): R06.02 - Shortness of breath Upper respiratory infection Qualifiers: URI type: unspecified URI Qualified Code(s): J06.9 - Acute upper respiratory infection, unspecified Cardiomyopathy Qualifiers: Cardiomyopathy type: unspecified Qualified Code(s): I42.9 - Cardiomyopathy, unspecified Condition: Stable Record reviewed to determine appropriate education?: Yes Instructions: ED URI Viral W Wheezing Follow-Up: ROBERT MASSEY MD [Primary Care Provider] - Prescriptions: Benzonatate [Tessalon Perle] 100 mg PO TID PRN #25 capsule PRN Reason: Cough dexAMETHasone [Decadron] 4 mg PO DAILY #5 tablet Comments: Your lung findings and x-ray do not appear to be a flareup of your CHF. Your symptoms sound most likely to be viral chest cold with as the cause of the trouble breathing. We will treat this with the albuterol inhaler 2 puffs with spacer 4 times a day and extra times as needed for shortness of breath. This will decrease the spasming component of the bronchials. Decadron steroid daily for 5 more days to decrease the inflammatory component. The cause of these is typically viral so no antibiotics indicated at this point. There is no signs of pneumonia on your x-ray. Stay well-hydrated below salt intake. Continue your usual medications. Add Tessalon if needed for cough. Add Tylenol if needed for fevers and soreness. Recheck if not improving well over the next several days. Discharge Date/Time: 09/03/19 22:06
[2019-09-03 21:58] VITALS: BP 119/81
== END 2019-09-03 22:06 | disposition home or self-care (01) ==
LOC: ED 18:11
DX: J06.9 Acute upper respiratory infection, unspecified (principal); I42.9 Cardiomyopathy, unspecified; F17.200 Nicotine dependence, unspecified, uncomplicated
CPT/HCPCS: 36415; 71045; 80053; 83690; 83735; 83880; 84484; 85025; 93005; 94640; 94664; 99284; A9270

== ENCOUNTER 2020-01-27 09:15 | Emergency (ER) | payer MEDICAID ==
--- NOTE | 2020-01-27 09:21 | ED Physician Documentation ---
PD HPI ABD PAIN - Stated complaint Stated Complaint: ABD PX/SOA - History of Present Illness Timing - onset: Yesterday Timing - duration: Days (10/28) Timing - details: Gradual onset, Still present, Waxing and waning. No: Intermittant Quality: Cramping, Aching, Pain Location: RUQ, Epigastric Radiation: No: Lower back, Upper back Improved by: No: Eating, Laying still Worsened by: Eating, Breathing, Palpation Associated symptoms: Nausea. No: Fever, Vomiting, Diarrhea, Constipation Similar symptoms before: No diagnosis (She states this is similar to an episode last August when seen in the ER but the record of that visit had symptoms of cough dyspnea and trouble breathing without any abdominal tenderness.) Recently seen: Not recently seen Review of Systems Constitutional: denies: Fever, Chills Nose: denies: Rhinorrhea / runny nose, Congestion Throat: denies: Sore throat Cardiac: denies: Chest pain / pressure, Palpitations Respiratory: reports: Dyspnea, Cough (She states she had an upper respiratory infection with a significant cough some trouble breathing about 3 weeks ago that lasted for a week or so. She did have fevers with it. Since then she has felt well though still has some continued dry cough and mild dyspnea on exertion. She did not have any nausea vomiting or diarrhea with that illness.). denies: Wheezing GI: reports: Abdominal Pain, Nausea. denies: Vomiting, Constipation, Diarrhea, Bloody / black stool Neurologic: denies: Generalized weakness, Near syncope PD PAST MEDICAL HISTORY - Past Medical History Cardiovascular: None Respiratory: None Endocrine/Autoimmune: None GI: None : None HEENT: None Psych: None Musculoskeletal: Osteoarthritis Derm: None - Past Surgical History Past Surgical History: Yes General: Cholecystectomy Ortho: Other Cardiovascular:  Neuro: Other - Present Medications Home Medications: Ambulatory Orders Medication Instructions Recorded Confirmed Benzonatate [Tessalon Perle] 100 mg PO TID PRN #25 capsule 09/03/19 dexAMETHasone [Decadron] 4 mg PO DAILY #5 tablet 09/03/19 Docusate Sodium 100 mg PO DAILY #15 capsule 01/27/20 Famotidine 20 mg PO DAILY #15 tablet 01/27/20 Hydrocodone/Acetaminophen [Christine 1 each PO Q6H PRN #20 tablet 01/27/20 5-325 Tablet] Ondansetron Odt [Zofran] 4 mg TL Q6H PRN #15 tablet 01/27/20 - Allergies Allergies/Adverse Reactions: Allergies Allergy/AdvReac Type Severity Reaction Status Date / Time No Known Drug Allergies Allergy Verified 01/27/20 09:32 - Living Situation Living Arrangement: reports: At home - Social History Does the pt smoke?: Yes Smoking Status: Current every day smoker Does the pt drink ETOH?: No Does the pt have substance abuse?: Yes - Family History Family history: denies: Aortic aneursym, Aortic dissection - Immunizations Immunizations are current?: No Immunizations: TDAP >10years/unknown - POLST Patient has POLST: No PD ED PE NORMAL - Vitals Vital signs reviewed: Yes - General General: Alert and oriented X 3, Well developed/nourished, Other (She appears moderately moderately uncomfortable holding the upper abdomen.) - HEENT HEENT: EOMI (nonicteric), Pharynx benign - Neck Neck: Supple, no meningeal sign, No adenopathy - Cardiac Cardiac: RRR, No murmur - Respiratory Respiratory: Clear bilaterally - Abdomen Abdomen: Normal bowel sounds, Soft, Non distended, No organomegaly, Other (T piter in the epigastric and right upper quadrant area with mild percussion but no rebound tenderness. Bowel sounds are present and hypoactive. The lower abdomen is nontender.) - Back Back: No CVA TTP - Derm Derm: Normal color, Warm and dry - Extremities Extremities: No deformity, No tenderness to palpate, Normal ROM s pain, No calf tenderness / cord - Neuro Neuro: Alert and oriented X 3, No motor deficit, Normal speech Results - Vitals Vitals: Vital Signs - 24 hr 01/27/20 01/27/20 01/27/20 09:29 10:32 12:21 Temperature 36.7 C 36.6 C Heart Rate 66 65 58 L Respiratory 20 16 12 Rate Blood Pressure 135/85 H 121/67 112/61 O2 Saturation 98 93 99 01/27/20 13:01 Temperature Heart Rate 56 L Respiratory 16 Rate Blood Pressure 117/77 O2 Saturation 97 Oxygen O2 Source Room air - Labs Labs: Laboratory Tests 01/27/20 01/27/20 01/27/20 10:20 10:20 10:20 WBC 11.2 H RBC 4.27 Hgb 12.0 Hct 38.7 MCV 90.6 MCH 28.1 MCHC 31.0 L RDW 15.0 Plt Count 466 H MPV 9.6 Neut # (Auto) 8.8 H Lymph # (Auto) 1.6 [place] # (Auto) 0.6 Eos # (Auto) 0.0 Baso # (Auto) 0.1 Absolute Nucleated RBC 0.00 Nucleated RBC % 0.0 Sodium 132 L Potassium 4.2 Chloride 101 Carbon Dioxide 23 Anion Gap 8.0 BUN 14 Creatinine 0.9 Estimated GFR (MDRD) 65 L Glucose 121 H Lactic Acid 1.5 Calcium 8.5 Magnesium 1.8 Total Bilirubin 1.1 H AST 43 H ALT 57 Alkaline Phosphatase 138 H Total Protein 7.5 Albumin 3.7 Globulin 3.8 Albumin/Globulin Ratio 1.0 Lipase 21 L - Rads (name of study) RUQ abd U/S Radiology: Prelim report reviewed (No acute process on US), See rad report PD MEDICAL DECISION MAKING - ED course Complexity details: reviewed results, re-evaluated patient (improved with fluids and meds. ), considered differential, d/w patient Departure - Departure Disposition: 01 Home, Self Care Clinical Impression: Upper abdominal pain Condition: Stable Record reviewed to determine appropriate education?: Yes Instructions: ED Abdominal Pain Unkn Cause Follow-Up: ROBERT MASSEY MD [Primary Care Provider] - Prescriptions: Docusate Sodium 100 mg PO DAILY #15 capsule Famotidine 20 mg PO DAILY #15 tablet Hydrocodone/Acetaminophen [Christine 5-325 Tablet] 1 each PO Q6H PRN #20 tablet PRN Reason: Pain Ondansetron Odt [Zofran] 4 mg TL Q6H PRN #15 tablet PRN Reason: Nausea / Vomiting Comments: Not sure the cause of your belly pain at this point. It may be some adhesions or possibly some irritation of the stomach or duodenum. I would suggest acid reducing medicine famotidine daily for a week or 2. Maalox or Mylanta if needed for discomfort as well. Daily stool softener so you do not get bound up from the medication. Ondansetron if needed for nausea and Tylenol or hydrocodone as needed for pains. Recheck if not improved over the next 1 to 2 days and return sooner if worse. Discharge Date/Time: 01/27/20 13:11
[2020-01-27] MEDS ORDERED: SODIUM CHLORIDE 0.9% 1,000 ML IV ONE (09:39)
[2020-01-27] MEDS ORDERED: FAMOTIDINE 20 MG/2 ML VIAL IVP STA (09:40)
[2020-01-27] MEDS ORDERED: HYDROmorphone 2 MG/ML VIAL IVP STA (09:40)
[2020-01-27] MEDS ORDERED: ONDANSETRON 4 MG/2 ML VIAL IVP STA (09:40)
[2020-01-27] MEDS ORDERED: KETOROLAC 15 MG/ML VIAL IVP STA (09:41)
[2020-01-27 10:35] LABS: BASOPHILS # (AUTO) 0.1 10^3/uL (0.0-0.1); BASOPHILS % (AUTO) 0.8 %; EOSINOPHILS % (AUTO) 0.4 %; LYMPHOCYTES # (AUTO) 1.6 10^3/uL (1.5-3.5); LYMPHOCYTES % (AUTO) 13.9 %; MEAN CORPUSCULAR HEMOGLOBIN 28.1 pg (27.0-31.0); MEAN CORPUSCULAR VOLUME 90.6 fL (81.0-99.0); MEAN PLATELET VOLUME 9.6 fL (7.9-10.8); MONOCYTES # (AUTO) 0.6 10^3/uL (0.0-1.0); MONOCYTES % (AUTO) 5.7 %; NEUTROPHILS # (AUTO) 8.8 10^3/uL (1.5-6.6); NEUTROPHILS % (AUTO) 78.7 %; PLT - PLATELET COUNT 466 10^3/uL (130-450); RED BLOOD COUNT 4.27 10^6/uL (4.20-5.40); WHITE BLOOD COUNT 11.2 x10^3/uL (4.8-10.8)
[2020-01-27 10:43] LABS: ALBUMIN 3.7 g/dL (3.2-5.5); BILIRUBIN,TOTAL 1.1 mg/dL (0.2-1.0); CALCIUM 8.5 mg/dL (8.5-10.3); CREATININE 0.9 mg/dL (0.4-1.0); MAGNESIUM 1.8 mg/dL (1.7-2.8); TOTAL PROTEIN 7.5 g/dL (6.7-8.2)
--- NOTE | 2020-01-27 10:52 | XRAY Report ---
Reason: recent cough; upper abd pain now Procedure Date: 01/27/2020 Accession Number: [id number] / [id number] Procedure: XR - Chest 1 View X-Ray CPT Code: 20340 Final Report FULL RESULT: EXAM: CHEST RADIOGRAPHY EXAM DATE: 01/27/2020 10:45 AM. CLINICAL HISTORY: Recent cough; upper abd pain now. COMPARISON: CHEST 1 VIEW 09/03/2019 6:46 PM. TECHNIQUE: 1 view. FINDINGS: Lungs/Pleura: Vascular prominence. No consolidation. No pneumothorax. Mediastinum: Heart is enlarged. Aorta is mildly tortuous. Other: Lead is again seen projected over the mediastinum. IMPRESSION: 1. Cardiomegaly. Borderline vascular congestion. 2. No focal consolidation. RADIA
--- NOTE | 2020-01-27 11:34 | Ultrasound Report ---
Reason: epigastric/RUQ abd pain and tender; s/p CCY Procedure Date: 01/27/2020 Accession Number: [id number] / [id number] Procedure: US - Abdomen Limited CPT Code: Final Report FULL RESULT: EXAM: ABDOMEN ULTRASOUND LIMITED, RUQ EXAM DATE: 01/27/2020 11:25 AM. CLINICAL HISTORY: Abdominal pain COMPARISON: None. TECHNIQUE: Real-time scanning was performed with static images obtained. FINDINGS: Liver: Submitted images of liver demonstrate no focal lesions. Main portal vein flow: Hepatopetal. Gallbladder: The gallbladder is surgically absent. Biliary System: CBD measures 9 mm. Mild common bile duct dilatation can be seen status post cholecystectomy. No evidence of choledocholithiasis or intrahepatic bile duct dilatation. Other: The right kidney demonstrates no hydronephrosis. IMPRESSION: Negative right upper quadrant ultrasound status post cholecystectomy. RADIA
[2020-01-27] MEDS ORDERED: MAG HYDROX/AL HYDROX/SIMETH 30 ML UDC PO STA (12:05)
[2020-01-27 13:02] VITALS: BP 117/77
== END 2020-01-27 13:11 | disposition home or self-care (01) ==
LOC: ED 09:15
DX: R10.10 Upper abdominal pain, unspecified (principal); F17.200 Nicotine dependence, unspecified, uncomplicated
CPT/HCPCS: 36415; 71045; 76705; 80053; 83605; 83690; 83735; 85025; 96361; 96374; 99284; 99285; A9270; J1170

== ENCOUNTER 2020-06-27 17:04 | Observation (INO) | payer MEDICAID ==
--- NOTE | 2020-06-27 17:19 | ED Physician Documentation ---
History of Present Illness - Stated complaint Stated Complaint: SOB,LIGHT HEADED,ELIZALDE - Additonal information Additional information: 55-year-old female presents to the emergency department with a chief complaint of dyspnea and near syncope. She reports that she was walking and began to feel like she was going to lose her breath. So she began to try and breathe deep but then her friend reports that patient went into a fugue state and did not appear to be responding normally. The patient remembers everything that happened and she did not faint but she felt like she was just about to. She denies that she had any chest pain during this episode. She also reports that she had similar last week. She does endorse a history of heart failure as well as active tobaccoism. Patient is unsure of the medications that she takes but states that she has been taking them normally for about the last week or so. She states that because she has a new grandbaby due soon she has decided to become more compliant with her medications. She endorses diarrhea this morning but no vomiting. She has no dysuria urgency or frequency. She denies any new or unilateral leg swelling. meds: metformin, statin, amlodipine, metoprolol, aldactone, entresto Review of Systems Constitutional: denies: Fever, Chills Eyes: reports: Other (tunnel vision) Ears: denies: Tinnitus/ringing Nose: denies: Rhinorrhea / runny nose, Congestion Cardiac: reports: Pedal edema (bilateral feet at baseline, unchanged). denies: Chest pain / pressure, Palpitations, Calf pain Respiratory: reports: Dyspnea, Wheezing. denies: Cough, Hemoptysis GI: reports: Abdominal Swelling (feels bloated), Diarrhea. denies: Abdominal Pain, Nausea, Vomiting, Constipation, Hematemesis, Bloody / black stool : denies: Dysuria, Hesitancy Skin: denies: Rash, Lesions Musculoskeletal: denies: Neck pain, Back pain, Joint pain Neurologic: reports: Near syncope. denies: Generalized weakness, Difficulty speaking, Syncope, Confused, Headache PD PAST MEDICAL HISTORY - Past Medical History Cardiovascular: None Respiratory: None Endocrine/Autoimmune: None GI: None : None HEENT: None Psych: None Musculoskeletal: Osteoarthritis Derm: None - Past Surgical History Past Surgical History: Yes General: Cholecystectomy Ortho: Other Cardiovascular:  Neuro: Other - Present Medications Home Medications: Ambulatory Orders Medication Instructions Recorded Confirmed Aspirin [Aspirin EC] 81 mg PO DAILY 06/27/20 06/27/20 Atorvastatin Calcium 40 mg PO DAILY PM 06/27/20 06/27/20 Chlorthalidone 25 mg ORAL DAILY 06/27/20 06/27/20 Metoprolol Succinate 200 mg PO BID 06/27/20 06/27/20 metFORMIN [Glucophage] 500 mg PO BIDWM 06/27/20 06/27/20 - Allergies Allergies/Adverse Reactions: Allergies Allergy/AdvReac Type Severity Reaction Status Date / Time No Known Drug Allergies Allergy Verified 06/27/20 17:10 - Social History Does the pt smoke?: Yes Smoking Status: Current every day smoker Does the pt drink ETOH?: No Does the pt have substance abuse?: Yes - Immunizations Immunizations are current?: No Immunizations: TDAP >10years/unknown - POLST Patient has POLST: No PD ED PE EXPANDED - General General: Alert, No acute distress, Well developed/nourished - HEENT HEENT: Atraumatic, PERRL - Eyes Eyes: PERRL - Neck Neck: Supple w/out meningeal sx. No: Adenopathy - Cardiac Cardiac: Regular Rate, Femoral strong equal, Pedal strong equal, Cap refill < 2 sec - Respiratory Respiratory: Clear to ausultation adam. No: Distress, Labored - Abdomen Abdomen: Normal Bowel sounds. No: Tender to palpation, Rebound, Guarding - Derm Derm: Normal color. No: Rash, Papules, Petecchiae, Purpura - Extremities Extremities: Normal, Pedal edema R, Pedal edema L - Neuro Neuro: Alert and Oriented X 3, Normal motor, Normal Speech, CNII-XII intact, Normal finger nose, Normal speech. No: Nystagmus - GCS Eye Opening: Spontaneous Motor: Obeys Commands Verbal: Oriented Total: 15 Results - Vitals Vitals: Vital Signs - 24 hr 06/27/20 06/27/20 06/27/20 17:10 17:29 17:45 Temperature 36.8 C Heart Rate 65 66 Heart Rate [ 67 Sitting] Heart Rate [ 66 Standing] Heart Rate [ 63 Supine] Respiratory 18 18 Rate Blood Pressure 131/86 H 120/75 Blood Pressure 138/82 H [Sitting] Blood Pressure 133/81 H [Standing] Blood Pressure 134/74 H [Supine] O2 Saturation 98 98 06/27/20 18:32 Temperature Heart Rate 61 Heart Rate [ Sitting] Heart Rate [ Standing] Heart Rate [ Supine] Respiratory 14 Rate Blood Pressure 130/73 Blood Pressure [Sitting] Blood Pressure [Standing] Blood Pressure [Supine] O2 Saturation 97 Oxygen O2 Source Room air - EKG (time done) 1711 Rate: Rate (enter#) (65) Rhythm: NSR [place]: Normal Intervals: Normal OR QRS: Normal Ischemia: Non specific changes Compare to prior EKG: Unchanged from prior EKG Computer interpretation: Agree with computer - Labs Labs: Laboratory Tests 06/27/20 06/27/20 06/27/20 17:20 17:20 17:20 WBC 13.3 H RBC 4.48 Hgb 13.3 Hct 42.1 MCV 94.0 MCH 29.7 MCHC 31.6 L RDW 15.1 H Plt Count 507 H MPV 9.8 Neut # (Auto) 8.9 H Lymph # (Auto) 3.3 [place] # (Auto) 0.8 Eos # (Auto) 0.1 Baso # (Auto) 0.1 Absolute Nucleated RBC 0.02 Nucleated RBC % 0.2 Sodium 136 Potassium 3.8 Chloride 98 L Carbon Dioxide 26 Anion Gap 12.0 BUN 21 H Creatinine 1.0 Estimated GFR (MDRD) 58 L Glucose 107 H Calcium 9.6 Total Bilirubin 0.6 AST 44 H ALT 47 Alkaline Phosphatase 120 Troponin I High Sens 17.4 H* B-Natriuretic Peptide Total Protein 8.3 H Albumin 3.8 Globulin 4.5 H Albumin/Globulin Ratio 0.8 L Lipase 22 TSH Urine Color Urine Clarity Urine pH Ur Specific [place] Urine Protein Urine Glucose (UA) Urine Ketones Urine Occult Blood Urine Nitrite Urine Bilirubin Urine Urobilinogen Ur Leukocyte Esterase Urine RBC Urine WBC Ur Squamous Epith Cells Urine Bacteria Ur Microscopic Review Urine Culture Comments 06/27/20 06/27/20 06/27/20 17:20 17:20 17:50 WBC RBC Hgb Hct MCV MCH MCHC RDW Plt Count MPV Neut # (Auto) Lymph # (Auto) [place] # (Auto) Eos # (Auto) Baso # (Auto) Absolute Nucleated RBC Nucleated RBC % Sodium Potassium Chloride Carbon Dioxide Anion Gap BUN Creatinine Estimated GFR (MDRD) Glucose Calcium Total Bilirubin AST ALT Alkaline Phosphatase Troponin I High Sens B-Natriuretic Peptide 1374 H Total Protein Albumin Globulin Albumin/Globulin Ratio Lipase TSH 1.79 Urine Color YELLOW Urine Clarity CLEAR Urine pH 6.0 Ur Specific [place] >=1.030 H Urine Protein 30 H Urine Glucose (UA) NEGATIVE Urine Ketones NEGATIVE Urine Occult Blood SMALL H Urine Nitrite NEGATIVE Urine Bilirubin NEGATIVE Urine Urobilinogen 2 H Ur Leukocyte Esterase TRACE H Urine RBC 6-10 H Urine WBC 0-3 Ur Squamous Epith Cells MANY Squamous H Urine Bacteria Rare Ur Microscopic Review INDICATED Urine Culture Comments NOT INDICATED - Rads (name of study) cxr Radiology: Final report received (Prominent pulmonary vasculature. Cardiomegaly.) PD MEDICAL DECISION MAKING - ED course Complexity details: reviewed old records, reviewed results, re-evaluated patient, considered differential, d/w patient ED course: 55-year-old female who has a history of heart failure presents to the emergency department with a near syncopal episode this afternoon after ambulating a short distance from a car into a thrift store. she has a hx of CHF - Patient's most recent echo completed 2 years ago showed an EF of approximately 25% with pulmonary hypertension as well as mitral and aortic valve regurgitation. Her BNP today is slightly higher than it typically is in the 1300s. Her troponin is 17.9. This likely represents myocardial leak in the setting of heart failure rather than active ACS. However we will be trending it and repeat troponin is pending. She will be brought into the hospital under o bservation status for CHF exacerbation repeat echocardiogram tomorrow and diuresis. I have spoken with Dr. Rob who has agreed to see and admit pt under observation status Departure - Departure Disposition: ED Place in Observation Clinical Impression: Near syncope CHF (congestive heart failure) Qualifiers: Heart failure type: systolic Heart failure chronicity: acute on chronic Qualified Code(s): I50.23 - Acute on chronic systolic (congestive) heart failure Condition: Serious
[2020-06-27 17:42] LABS: BASOPHILS # (AUTO) 0.1 10^3/uL (0.0-0.1); BASOPHILS % (AUTO) 0.9 %; EOSINOPHILS # (AUTO) 0.1 10^3/uL (0.0-0.7); HGB - HEMOGLOBIN 13.3 g/dL (12.0-16.0); LYMPHOCYTES # (AUTO) 3.3 10^3/uL (1.5-3.5); LYMPHOCYTES % (AUTO) 24.7 %; MEAN CORPUSCULAR HEMOGLOBIN 29.7 pg (27.0-31.0); MEAN CORPUSCULAR HGB CONC 31.6 g/dL (32.0-36.0); MEAN PLATELET VOLUME 9.8 fL (7.9-10.8); MONOCYTES # (AUTO) 0.8 10^3/uL (0.0-1.0); MONOCYTES % (AUTO) 6.2 %; NEUTROPHILS # (AUTO) 8.9 10^3/uL (1.5-6.6); NEUTROPHILS % (AUTO) 66.6 %; PLT - PLATELET COUNT 507 10^3/uL (130-450); RED BLOOD COUNT 4.48 10^6/uL (4.20-5.40); RED CELL DISTRIBUTION WIDTH 15.1 % (12.0-15.0); WHITE BLOOD COUNT 13.3 x10^3/uL (4.8-10.8)
[2020-06-27 17:56] LABS: ALBUMIN 3.8 g/dL (3.2-5.5); ALBUMIN/GLOBULIN RATIO 0.8 (1.0-2.2); BILIRUBIN,TOTAL 0.6 mg/dL (0.2-1.0); CALCIUM 9.6 mg/dL (8.5-10.3); TOTAL PROTEIN 8.3 g/dL (6.7-8.2)
--- NOTE | 2020-06-27 17:56 | XRAY Report ---
PROCEDURE: Chest 1 View X-Ray INDICATIONS: Chest Pain TECHNIQUE: One view of the chest was acquired. COMPARISON: CXR 01/27/2020, 07/04/2018. FINDINGS: Surgical changes and devices: Left chest cardiac device with lead projecting at the upper mediastinum , unchanged. Lungs and pleura: No pleural effusions or pneumothorax. Mildly prominent perihilar markings particul carly in the upper lobes. Mediastinum: Mediastinal contours appear unchanged. Heart size is enlarged. Bones and chest wall: No suspicious bony lesions. Overlying soft tissues appear unremarkable. IMPRESSION: Prominent pulmonary vasculature. Cardiomegaly. Reviewed by: Jesus Badillo MD on 06/27/2020 4:55 PM AMADOR Approved by: Jesus Badillo MD on 06/27/2020 4:55 PM AMADOR Station ID: [id number]
[2020-06-27 18:04] LABS: BILIRUBIN,URINE NEGATIVE (NEGATIVE); GLUCOSE, URINE (UA) NEGATIVE (NEGATIVE); KETONES,URINE (UA) NEGATIVE (NEGATIVE); LEUKOCYTE ESTERASE, URINE TRACE (NEGATIVE); NITRITE,URINE NEGATIVE (NEGATIVE); OCCULT BLOOD,URINE SMALL (NEGATIVE); PROTEIN,URINE 30 mg/dL (NEGATIVE); UROBILINOGEN,URINE 2 E.U./dL (NORMAL)
[2020-06-27 18:08] LABS: CLARITY,URINE CLEAR (CLEAR)
[2020-06-27 18:19] LABS: BACTERIA,URINE Rare /HPF (None Seen); SQUAMOUS EPITHELIAL CELL,UR MANY Squamous (<= Few)
[2020-06-27] MEDS ORDERED: FUROSEMIDE 40 MG/4 ML VIAL IVP STA (18:31)
[2020-06-27] MEDS ORDERED: ONDANSETRON 4 MG/2 ML VIAL IVP PRN (18:35)
[2020-06-27] MEDS ORDERED: SODIUM CHLORIDE FLUSH 0.9% 10 ML SYRINGE IVP PRN (18:35)
[2020-06-27] MEDS ORDERED: ONDANSETRON ODT 4 MG TABLET TL PRN (18:35)
[2020-06-27] MEDS ORDERED: ACETAMINOPHEN 325 MG TABLET PO PRN (18:35)
[2020-06-27] MEDS: METOPROLOL SUCCINATE 50 MG TABLET PO SCH (20:56)
[2020-06-27] MEDS ORDERED: ATORVASTATIN 40 MG TABLET PO SCH (21:00)
[2020-06-27] MEDS: INSULIN ASPART 300 UNIT/3 ML PEN SUBQ SCH (21:07)
[2020-06-27] MEDS: VALSARTAN PO SCH (22:02)
[2020-06-27] MEDS: SACUBITRIL PO SCH (22:02)
--- NOTE | 2020-06-27 22:15 | HISTORY & PHYSICAL EXAMINATION ---
Chief Complaint - Chief Complaint Chief Complaint: severe yousif History of Present Illness - Admitted From Admitted From:: Home/ER - History Obtained From Records Reviewed: [facility] History obtained from: patient, her friend Exam Limitations: none - History of Present Illness HPI Comment/Other: This is her first admission for medical illness. She is carried the diagnosis of congestive heart failure for several years now, and she thinks she was diagnosed in 2017. She has an AICD in place because of risk of sudden wi th an ejection fraction is below 30%.She quotes "an ejection fraction of 20 to 25%". Amazingly enough she is still able enough to take care of her elderly parents in their home. She cooks, cleans, does laundry. The only thing she does not do is drive because she is suspended from driving due to findings. She even managed to mow the lawn a little over a week ago and they have a large lawn. She feels overwhelmed and underappreciated. And asked that she slipped into a "a funk". She realizes that it was shooting herself in the foot. She was not taking her medications appropriately, and she was indiscrete with her diet. She loves cheese puffs. So her salt intake probably went up. 2 weeks ago she noted that she was more short of breath than usual, but by last week she was miserable just getting up to get out of bed. Legs were getting more edematous. It was requiring more and more effort to do simple things such as get up to go to the bathroom. She denies fever, chills, cough. Appetite is diminished but she can still smell things. She denies sore throat, runny nose, eustachian tube dysfunction. A couple of friends of told her that she is does not seem to be doing well but she ignored them. Today a friend that she has not seen in a couple of weeks, came over to take her to the grocery store. They were going to go get some food then cook at a [employer]. They got in to the car, and got as far as leaving the patient's driveway. She was so short of breath, fatigue, complaining of a headache and holding her head in her hands because she was too tired to lifted up that her friend got concerned. She was short of breath trying to talk. Speech seemed to be slurred. Because the patient has a history of an aneurysm, her friend got alarmed and brought her to the emergency room. In the emergency room she was evaluated by MYRNA Davila. She was afebrile, heart rate was 65, blood pressure 131/86. 98% saturated on room air. She was not in acute distress. Clear lungs. She did not have any distress or labored respiration. She did have pedal edema. Normal speech. She had sinus rhythm, no acute changes. White cell count was minimally elevated at 13.3. CMP was normal for her but troponin was 17.4. BNP was 1374. Chest x-ray showed cardiomegaly with prominent pulmonary vasculature. Mild Michael prominent perihilar markings in the upper lobes. She was given 40 mg of Lasix in the emergency room with a good brisk diuresis. She is now placed in observation for presumed acute on chronic systolic heart failure. 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 cervical cancer at age 19 - Past Surgical History General: reports: Cholecystectomy Ortho: reports: Other Cardiovascular: Neuro: reports: Other - Family & Social History Family History Comment/Other: Dad is 79 years old and is alive with high blood pressure, diabetes, and status post stroke November 2019. Mom is alive at 75 and has high blood pressure, diabetes, and a myocardial infarction October 2019. 3 brothers, 2 are obese. No other illnesses. 2 children, her son is obese, bu t no other illnesses. Living arrangement: At home Living Situation: With family Social History Notes: In her younger years, mainly her 20s, she did marijuana and methamphetamines. She has not done it since that time. She has been smoking 1/2 pack/day since the age of 18. She has no history of alcohol abuse. 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 She has been from her first for over 5 or 6 years. lives with son in their own home. She moved in with her parents. Especially since they have had their heart attack and stroke this year, she is responsible for everything in the home. - Substance History Use: Uses substance without health or social issues: NONE Tobacco Details: Cigarettes - POLST Patient has POLST: No POLST Status: Full Code (See advance care planning conversation under separate's dictation) Meds/Allgy - Home Medications Home Medications: Ambulatory Orders Medication Instructions Recorded Confirmed Aspirin [Aspirin EC] 81 mg PO DAILY 06/27/20 06/27/20 Atorvastatin Calcium 40 mg PO DAILY PM 06/27/20 06/27/20 Chlorthalidone 25 mg ORAL DAILY 06/27/20 06/27/20 Metoprolol Succinate 200 mg PO BID 06/27/20 06/27/20 Sacubitril/Valsartan [Entresto 97 1 each PO BID 06/27/20 06/27/20 mg-103 mg Tablet] Spironolactone 50 mg PO DAILY 06/27/20 06/27/20 amLODIPine [Norvasc] 5 mg PO DAILY 06/27/20 06/27/20 metFORMIN [Glucophage] 500 mg PO BIDWM 06/27/20 06/27/20 - Allergies Allergies/Adverse Reactions: Allergies Allergy/AdvReac Type Severity Reaction Status Date / Time No Known Drug Allergies Allergy Verified 06/27/20 17:10 Review of Systems - Constitutional Constitutional: reports: Fatigue, Malaise. denies: Fever, Chills, Weakness, Poor appetite, Diaphoresis, Night sweats - Eyes Eyes: denies: Pain, Irritation, Amaurosis, Blurred vision, Vision loss - Ears, Nose & Throat Ears, Nose & Throat: denies: Ear pain, Hearing loss, Vertigo, Nasal congestion, Postnasal drainage, Sore throat, Hoarseness - Cardiovascular Cariovascular: reports: Irregular heart rate, Palpitations, Edema, Lightheadedness, Exertional dyspnea, Decr. exercise tolerance. denies: Syncope - Respiratory Respiratory: denies: Cough, Sputum production, Wheezing, Snoring, SOB at rest, SOB with exertion - Gastrointestinal Gastrointestinal: denies: Abdominal pain, Abdominal distention, Constipation, Diarrhea, Change in bowel habits, Rectal bleeding - Genitourinary Genitourinary: reports: Incontinence. denies: Dysuria, Frequency, Urgency, Hematuria - Musculoskeletal Musculoskeletal: denies: Muscle pain, Back pain, Muscle aches - Integumentary Integumentary: denies: Rash, Pruritis, Lesions - Neurological Neurological: denies: General weakness, Focal weakness, Headache - Psychiatric Psychiatric: reports: Depression. denies: Anxiety, Suicidal, Hallucinations, Homicidal - Endocrine Endocrine: denies: Polyuria, Polydypsia, Polyphagia - Hematologic/Lymphatic Hematologic/Lymphatic: denies: Anemia, Blood clots, Recurrent infections Prior Level of Functionality: she cleans house, buys groceries, does laundry, mows lawn just last week. Can complete all of her ADLs. Just does this more slowly overall since her dx of CHF. Can't drive bc license is suspended. No durable medical goods used a [employer]. Exam - Vital Signs Reviewed Vital Signs: Yes Vital Signs: Vital Signs x48h Temp Pulse Pulse Pulse Pulse Pulse Resp 06/27/20 21:07 36.3 C L 60 24 06/27/20 19:09 36.3 C L 59 L 20 06/27/20 18:32 61 14 06/27/20 17:45 67 66 63 06/27/20 17:29 66 18 06/27/20 17:10 36.8 C 65 18 BP BP BP BP BP Pulse Ox 06/27/20 21:07 113/64 93 06/27/20 19:09 120/74 98 06/27/20 18:32 130/73 97 06/27/20 17:45 138/82 H 133/81 H 134/74 H 06/27/20 17:29 120/75 98 06/27/20 17:10 131/86 H 98 - Physical Exam General Appearance: positive: No acute distress, Alert, Other (one of her best friends is at the bedside. 5'4" white female w dyed timothy hair, asleep but wakens easily to have a conversation and exam) Eyes Bilateral: positive: PERRL ENT: positive: Pharynx nml Neck: positive: No JVD. negative: Stiff neck, Carotid bruit Respiratory: positive: Chest non-tender, No respiratory distress. negative: Wheezes, Rales, Rhonchi Cardiovascular: positive: Regular rate & rhythm, Gallop/S3. negative: JVD present, Friction rub Peripheral Pulses: positive: 1+ Abdomen: positive: Non-tender, No organomegaly, Nml bowel sounds, No distention, Other (large abd panus) Skin: positive: Other (peter under breast panus and faint changes under abd panus) Extremities: positive: Non-tender, Full ROM, Pedal edema (right leg is 2+ and le ft is 1+) Neurologic/Psychiatric: positive: Oriented x3, CN's nml (2-12), Motor nml, Sensation nml Conclusion/Plan - Problem List (1) Acute on chronic systolic CHF (congestive heart failure) Conclusion/Plan: Due to self-described noncompliance with medications and indiscrete notes with diet. She says that she is just "in a funk". She is not suicidal. She just feels overwhelmed with having to take care of her elderly parents, and nothing she seems to do makes and happy and are critical of her. Plan: Observation status Lasix already given tonight, will give another dose tomorrow morning Plan on discharge of Lasix and stopping chlorthalidone Resume Entresto and metoprolol Echocardiogram in the morning Check BNP in the morning Recommend that she start cardiopulmonary rehab program to improve endurance, increase strength. (2) Morbid obesity Conclusion/Plan: diet and exercise w referral to cardiac wellness center. (3) Controlled type 2 diabetes mellitus without complication Conclusion/Plan: check a1c. 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 Also will resume Norvasc. Some of her pedal edema could be due to the Norvasc Qualifiers: Hypertension type: essential hypertension Qualified Code(s): I10 - Essential (primary) hypertension (5) Thrombocytosis Conclusion/Plan: She has been minimally and steadily climbing for several years. She was in the 400s and for the first time today is now above 500. Would recommend outpatient hematology evaluation. MCV is normal without indication of iron deficiency anemia as the cause. Will order Joshua 2 mutation - Lab Results Lab results reviewed: Yes Fish Bones: 06/27/20 17:20 06/27/20 17:20 - Diagnostic Imaging Results Diagnostic Imaging Results: positive: Final report reviewed (Chest x-ray with prominent pulmonary vasculature. Cardiomegaly.) - EKG Results EKG Interpreted Independently: No EKG Comparison: Unchanged from prior EKG Core Measures - Anticipated LOS I expect patient to be DC'd or transferred within 96 hours.: Yes - DVT/VTE - Prophylaxis VTE/DVT Device ordered at admit?: Yes
[2020-06-27] MEDS: NYSTATIN POWDER 15 GM TOP SCH (22:42)
[2020-06-27] MEDS: SODIUM CHLORIDE FLUSH 0.9% 10 ML SYRINGE IVP SCH (23:43)
--- NOTE | 2020-06-28 00:36 | ADVANCE CARE PLANNING NOTE ---
Advance Care Planning - Planning Encounter Date: 06/27/20 Time: 21:00 Purpose: establish code status Parties in Attendance: patient, hospitalist and her best friend. Her best friends sister, Jeanne Stark, is POA Decisional Capacity of the Patient: alert, oriented, - Diagnosis for Encounter (1) Acute on chronic systolic CHF (congestive heart failure) Summary: Present since 2016 diagnosis. Currently being taken care of by Dr. Miquel Thomas, [facility], cardiology, [place]. Office number [phone]. He was last seen approximately December 2019. No changes in medication. - Encounter Subjective/Patient's Story: [place] in this area. 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 She is been from her for 6 to 7 years. 1 of their sons and her ex- live together. She moved in with her parents. She does it because she loves him and not out of duty. 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 Things have become worse and that her father had a stroke, mom had a heart attack. This was all this year. Is gotten to the point where she feels overwhelmed. She herself has chronic systolic congestive heart failure. She is still able to do everything she wants to do albeit much more slowly than she would like. For instance she mowed the lawn a week and a half ago. Because she is unemployed, and on Social Security, she is a very limited income and relies on her parents financially. She is very close to some family friends. 1 of them accompanies her tonight and will spending the night. Within that family she has a power of united [place] attorney named Jeanne Stark. She has been down in the dumps for the last few weeks because of the burden of taking care of her parents. She is not suicidal, but has not been taking care of herself and is "just gave it all up". So she is not been taking her medicines on a regular basis, and she has been indiscrete with a diet resulting in an episode of acute on chronic systolic congestive heart failure. When we discussed CODE STATUS during her history and physical she wanted to be a full code. I then asked her if there were any limitations that she would put on that. She did not know what I was asking and I gave her an example of being bedbound. For whatever reason, if she became bedbound enough that she relied on other people to take care of her 19/05, which she still want to be a full code. That led to a prolonged discussion with her best friend in the room. They realize that they have never talked about this before. She in fact would not want to be resuscitated if her quality of life was so severe as I described. Objective/Medical Story: This is her first admission for medical illness. She is carried the diagnosis of congestive heart failure for several years now, and she thinks she was diagnosed in 2017. She has an AICD in place because of risk of sudden wit h an ejection fraction is below 30%.She quotes "an ejection fraction of 20 to 25%". Amazingly enough she is still able enough to take care of her elderly parents in their home. She cooks, cleans, does laundry. The only thing she does not do is drive because she is suspended from driving due to findings. She even managed to mow the lawn a little over a week ago and they have a large lawn. She feels overwhelmed and underappreciated. And asked that she slipped into a "a funk". She realizes that it was shooting herself in the foot. She was not taking her medications appropriately, and she was indiscrete with her diet. She loves cheese puffs. So her salt intake probably went up. 2 weeks ago she noted that she was more short of breath than usual, but by last week she was miserable just getting up to get out of bed. Legs were getting more edematous. It was requiring more and more effort to do simple things such as get up to go to the bathroom. She denies fever, chills, cough. Appetite is diminished but she can still smell things. She denies sore throat, runny nose, eustachian tube dysfunction. A couple of friends of told her that she is does not seem to be doing well but she ignored them. Today a friend that she has not seen in a couple of weeks, came over to take her to the grocery store. They were going to go get some food then cook at a [employer]. They got in to the car, and got as far as leaving the patient's driveway. She was so short of breath, fatigue, complaining of a headache and holding her head in her hands because she was too tired to lifted up that her friend got concerned. She was short of breath trying to talk. Speech seemed to be slurred. Because the patient has a history of an aneurysm, her friend got alarmed and brought her to the emergency room. In the emergency room she was evaluated by MYRNA Davila. She was afebrile, heart rate was 65, blood pressure 131/86. 98% saturated on room air. She was not in acute distress. Clear lungs. She did not have any distress or labored respiration. She did have pedal edema. Normal speech. She had sinus rhythm, no acute changes. White cell count was minimally elevated at 13.3. CMP was normal for her but troponin was 17.4. BNP was 1374. Chest x-ray showed cardiomegaly with prominent pulmonary vasculature. Mild Michael prominent perihilar markings in the upper lobes. She was given 40 mg of Lasix in the emergency room with a good brisk diuresis. She is now placed in observation for presumed acute on chronic systolic heart failure. 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 cervical cancer at age 19 Goals of Care: 1. To remain as independent as she is right now. She has no desire to leave her parents home. Would just like more appreciation for the work she does for them. 2. Second grandbaby is due soon. She would like to stay alive long enough to enjoy her grandchildren growing up 3. Try and have a conversation with her parents about her unhappiness Plan: Adjust her medications during this stay. Most likely will be on Lasix as oppos ed to chlorthalidone. We will follow-up with a weave defect charting clerk. Have a long discussion with her designated power of united states attorney Jeanne about her goals and what she would feel or quality of life issues.At this time remain full CODE STATUS. Code Status: Attempt Resuscitation
[2020-06-28 05:37] LABS: BASOPHILS # (AUTO) 0.1 10^3/uL (0.0-0.1); BASOPHILS % (AUTO) 0.9 %; EOSINOPHILS # (AUTO) 0.2 10^3/uL (0.0-0.7); EOSINOPHILS % (AUTO) 1.3 %; LYMPHOCYTES # (AUTO) 2.6 10^3/uL (1.5-3.5); LYMPHOCYTES % (AUTO) 23.2 %; MEAN CORPUSCULAR HEMOGLOBIN 28.6 pg (27.0-31.0); MEAN CORPUSCULAR VOLUME 92.3 fL (81.0-99.0); MONOCYTES # (AUTO) 0.7 10^3/uL (0.0-1.0); MONOCYTES % (AUTO) 5.8 %; NEUTROPHILS # (AUTO) 7.7 10^3/uL (1.5-6.6); NEUTROPHILS % (AUTO) 68.3 %; PLT - PLATELET COUNT 457 10^3/uL (130-450); RED BLOOD COUNT 4.54 10^6/uL (4.20-5.40); RED CELL DISTRIBUTION WIDTH 14.8 % (12.0-15.0); WHITE BLOOD COUNT 11.2 x10^3/uL (4.8-10.8)
[2020-06-28 05:51] LABS: CALCIUM 9.1 mg/dL (8.5-10.3); CREATININE 0.9 mg/dL (0.4-1.0); MAGNESIUM 1.6 mg/dL (1.7-2.8); PHOSPHORUS 4.1 mg/dL (2.5-4.6)
--- NOTE | 2020-06-28 07:34 | Discharge Plan ---
Discharge Plan Problem Reviewed?: Yes Disposition: Home, Self Care Condition: Good Prescriptions: Furosemide [Lasix] 40 mg PO DAILY #30 tablet Diet: Low Sodium Activity Restrictions: Activity as Tolerated Health Concerns: You were seen in the hospital because of exacerbation of your heart failure. This was likely due to you not taking your medications consistently and due to increased salt which can cause fluid retention. You were treated with IV Lasix which is a water pill that helps remove fluid from your body. This has helped your breathing and you are now stable for discharge. Plan of Treatment: Please stop taking chlorthalidone as you are now prescribed a new water pill called Lasix which you should take every day to help prevent excess fluid from being retained and causing you to have difficulty breathing. Please also stop taking amlodipine as I am concerned your blood pressure may be a little too low at times. It is important that you follow-up with your primary care provider within 1 week. If your blood pressure is elevated at that time they can always restart you on amlodipine again. It is recommended you follow-up with your robotic maintenance technician as well. Assessment: Patient expressed understanding of the treatment plan. Additional Instructions or Follow Up instructions: Please follow-up with your primary care provider within 1 week and please also follow-up with your robotic maintenance technician. No Smoking: If you smoke, Please STOP! Call for help. Follow-up with: ROBERT MASSEY MD [Primary Care Provider] -
[2020-06-28] MEDS ORDERED: POTASSIUM CHLORIDE 20 MEQ TABLET PO ONE (08:00)
[2020-06-28] MEDS ORDERED: MAGNESIUM OXIDE 400 MG TABLET PO SCH (08:00)
[2020-06-28] MEDS ORDERED: SPIRONOLACTONE 25 MG TABLET PO SCH (09:00)
[2020-06-28] MEDS ORDERED: FUROSEMIDE 40 MG/4 ML VIAL IVP SCH (09:00)
[2020-06-28] MEDS ORDERED: ENOXAPARIN 40 MG/0.4 ML SYRINGE SUBQ SCH (09:00)
[2020-06-28] MEDS ORDERED: ASPIRIN EC 81 MG TABLET PO SCH (09:00)
[2020-06-28] MEDS ORDERED: amLODIPine 5 MG TABLET PO SCH (09:00)
--- NOTE | 2020-06-28 09:23 | DISCHARGE SUMMARY ---
Discharge Summary Admit Date: 06/27/20 Discharge Date: 06/28/20 Discharging Provider: Cameron Rob Primary Care Provider: Moshe Campos Code Status: Attempt Resuscitation Condition at Discharge: Good Discharge Disposition: 01 Home, Self Care - DIAGNOSES Admission Diagnoses: Acute on chronic systolic heart failure Morbid obesity Controlled type 2 diabetes mellitus Hypertension Thrombocytosis Tobacco abuse Discharge Diagnoses with Status of Each Condition: Acute on chronic systolic heart failure - improved. Morbid obesity - stable. Controlled type 2 diabetes mellitus - stable. Hypertension - stable. Thrombocytosis - stable. Tobacco abuse - stable. - HPI History of Present Illness: H&P per Dr. Roa: This is her first admission for medical illness. She is carried the diagnosis of congestive heart failure for several years now, and she thinks she was diagnosed in 2017. She has an AICD in place because of risk of sudden with an ejection fraction is below 30%.She quotes "an ejection fraction of 20 to 25%". Amazingly enough she is still able enough to take care of her elderly parents in their home. She cooks, cleans, does laundry. The only thing she does not do is drive because she is suspended from driving due to findings. She even managed to mow the lawn a little over a week ago and they have a large lawn. She feels overwhelmed and underappreciated. And asked that she slipped into a "a funk". She realizes that it was shooting herself in the foot. She was not taking her medications appropriately, and she was indiscrete with her diet. She loves cheese puffs. So her salt intake probably went up. 2 weeks ago she noted that she was more short of breath than usual, but by last week she was miserable just getting up to get out of bed. Legs were getting more edematous. It was requiring more and more effort to do simple things such as get up to go to the bathroom. She denies fever, chills, cough. Appetite is diminished but she can still smell things. She denies sore throat, runny nose, eustachian tube dysfunction. A couple of friends of told her that she is does not seem to be doing well but she ignored them. Today a friend that she has not seen in a couple of weeks, came over to take her to the grocery store. They were going to go get some food then cook at a barbecue. They got in to the car, and got as far as leaving the patient's driveway. She was so short of breath, fatigue, complaining of a headache and holding her head in her hands because she was too tired to lifted up that her friend got concerned. She was short of breath trying to talk. Speech seemed to be slurred. Because the patient has a history of an aneurysm, her friend got alarmed and brought her to the emergency room. In the emergency room she was evaluated by MYRNA Davila. She was afebrile, heart rate was 65, blood pressure 131/86. 98% saturated on room air. She was not in acute distress. Clear lungs. She did not have any distress or labored respiration. She did have pedal edema. Normal speech. She had sinus rhythm, no acute changes. White cell count was minimally elevated at 13.3. CMP was normal for her but troponin was 17.4. BNP was 1374. Chest x-ray showed cardiomegaly with prominent pulmonary vasculature. Mild Michael prominent perihilar markings in the upper lobes. She was given 40 mg of Lasix in the emergency room with a good brisk diuresis. She is now placed in observation for presumed acute on chronic systolic heart failure. - CONSULTS | PROCEDURES Procedures: Echocardiogram June 28 is pending the official report by pulmonary reveals an ejection fraction less than 20% and suspected grade 4 diastolic dysfunction. There is also moderate right ventricular enlargement and right particular systolic function is moderately impaired. There is trace to mild aortic regurg itation. There is moderate secondary mitral regurgitation. - HOSPITAL COURSE Hospital Course: She was admitted to the floor for acute on chronic systolic heart failure. She had received 40 mg of Lasix IV in the emergency department and she received another dose of Lasix IV the following morning. Her BNP improved in the 1300s down to 700. She was never hypoxic. She reported her dyspnea improved after diuresis. An echocardiogram was obtained which showed an ejection fraction 20% and grade 4 diastolic dysfunction. This is a preliminary report. Her troponins were flat. She was discharged in stable condition. Her chlorthalidone was discontinued and she was started on Lasix 40 mg daily in addition to metoprolol, Entresto, Aldactone. I asked her to hold her amlodipine given her blood pressures were borderline. She was asked to follow-up with her primary care provider in 1 week and to follow-up with her trainer. We discussed smoking cessation and she states she has Wellbutrin at home and she will work on this. - ALLERGIES Allergies/Adverse Reactions: Allergies Allergy/AdvReac Type Severity Reaction Status Date / Time No Known Drug Allergies Allergy Verified 06/27/20 17:10 - MEDICATIONS Home Medications: Ambulatory Orders Medication Instructions Recorded Confirmed Aspirin [Aspirin EC] 81 mg PO DAILY 06/27/20 06/27/20 Atorvastatin Calcium 40 mg PO DAILY PM 06/27/20 06/27/20 Metoprolol Succinate 200 mg PO BID 06/27/20 06/27/20 Sacubitril/Valsartan [Entresto 97 1 each PO BID 06/27/20 06/27/20 mg-103 mg Tablet] Spironolactone 50 mg PO DAILY 06/27/20 06/27/20 metFORMIN [Glucophage] 500 mg PO BIDWM 06/27/20 06/27/20 Furosemide [Lasix] 40 mg PO DAILY #30 tablet 06/28/20 - PHYSICAL EXAM AT DISCHARGE General Appearance: positive: No acute distress, Alert Eyes Bilateral: positive: Normal inspection, Conjunctivae nml ENT: positive: ENT inspection nml Neck: positive: Nml inspection Respiratory: positive: No respiratory distress. negative: Wheezes, Rales Cardiovascular: positive: Regular rate & rhythm, No murmur. negative: Tachycardia, Bradycardia, Systolic murmur Abdomen: positive: Non-tender, No distention. negative: Tenderness, Guarding, Rebound Skin: positive: No rash, Warm, Dry Extremities: positive: Full ROM, No pedal edema Neurologic/Psychiatric: positive: Oriented x3, Motor nml. negative: Disoriented to person, Disoriented to place, Disoriented to time Physical Exam Other/Comments: Vital Signs - 24 hr 06/27/20 06/27/20 06/27/20 17:10 17:29 17:45 Temperature 36.8 C Heart Rate 65 66 Heart Rate [ Brachial] Heart Rate [ 67 Sitting] Heart Rate [ 66 Standing] Heart Rate [ 63 Supine] Respiratory 18 18 Rate Blood Pressure 131/86 H 120/75 Blood Pressure [Right Brachial artery] Blood Pressure 138/82 H [Sitting] Blood Pressure 133/81 H [Standing] Blood Pressure 134/74 H [Supine] O2 Saturation 98 98 06/27/20 06/27/20 06/27/20 18:32 19:09 21:07 Temperature 36.3 C L 36.3 C L Heart Rate 61 Heart Rate [ 59 L 60 Brachial] Heart Rate [ Sitting] Heart Rate [ Standing] Heart Rate [ Supine] Respiratory 14 20 24 Rate Blood Pressure 130/73 Blood Pressure 120/74 113/64 [Right Brachial artery] Blood Pressure [Sitting] Blood Pressure [Standing] Blood Pressure [Supine] O2 Saturation 97 98 93 06/28/20 06/28/20 06/28/20 00:29 05:19 08:16 Temperature 36.9 C 36.8 C 36.4 C L Heart Rate Heart Rate [ 57 L 55 L 54 L Brachial] Heart Rate [ Sitting] Heart Rate [ Standing] Heart Rate [ Supine] Respiratory 16 16 18 Rate Blood Pressure Blood Pressure 109/56 L 109/58 L 113/66 [Right Brachial artery] Blood Pressure [Sitting] Blood Pressure [Standing] Blood Pressure [Supine] O2 Saturation 96 94 92 06/28/20 13:54 Temperature 36.7 C Heart Rate Heart Rate [ 59 L Brachial] Heart Rate [ Sitting] Heart Rate [ Standing] Heart Rate [ Supine] Respiratory 18 Rate Blood Pressure Blood Pressure 120/63 [Right Brachial artery] Blood Pressure [Sitting] Blood Pressure [Standing] Blood Pressure [Supine] O2 Saturation 93 Oxygen O2 Source Room air - LABS Result Diagrams: 06/28/20 05:15 06/28/20 05:15 - DIAGNOSTIC IMAGING Diagnostic Imaging Results: Final report reviewed - FOLLOW UP Follow Up: She was asked to follow-up with her primary care provider within 1 week as well as her trainer. - TIME SPENT Time Spent in Discharge (Minutes): 32
[2020-06-28] MEDS: INSULIN ASPART 300 UNIT/3 ML PEN SUBQ SCH ×2 (10:36→12:44)
[2020-06-28] MEDS: METOPROLOL SUCCINATE 50 MG TABLET PO SCH (11:04)
[2020-06-28 11:11] LABS: HEMOGLOBIN A1c% 6.2 % (4.27-6.07)
[2020-06-28] MEDS: SODIUM CHLORIDE FLUSH 0.9% 10 ML SYRINGE IVP SCH (11:15)
[2020-06-28] MEDS: NYSTATIN POWDER 15 GM TOP SCH (11:16)
[2020-06-28] MEDS: SACUBITRIL PO SCH (11:36)
[2020-06-28] MEDS: VALSARTAN PO SCH (11:36)
[2020-06-28 13:55] VITALS: BP 120/63
[2020-07-04 12:27] LABS: JAK2 COMMENT NOT DETECTED; JAK2 SPECIMEN TYPE NG
== END 2020-06-28 14:22 | disposition home or self-care (01) ==
LOC: ED 17:04 → MS2 18:35
PROVIDERS: ADMIT Internal Medicine; ATTEND Internal Medicine
DX: I11.0 Hypertensive heart disease with heart failure (principal); I50.23 Acute on chronic systolic (congestive) heart failure; Z95.810 Presence of automatic (implantable) cardiac defibrillator; E66.01 Morbid (severe) obesity due to excess calories; Z68.39 Body mass index [BMI] 39.0-39.9, adult; E11.9 Type 2 diabetes mellitus without complications; D47.3 Essential (hemorrhagic) thrombocythemia; I08.1 Rheumatic disorders of both mitral and tricuspid valves; Z91.128 Patient's intentional underdosing of medication regimen for other reason; Z91.19 Patient's noncompliance with other medical treatment and regimen; Z95.828 Presence of other vascular implants and grafts; Z86.79 Personal history of other diseases of the circulatory system; F17.210 Nicotine dependence, cigarettes, uncomplicated; R32 Unspecified urinary incontinence; Z79.84 Long term (current) use of oral hypoglycemic drugs; Z79.82 Long term (current) use of aspirin; Z79.899 Other long term (current) drug therapy
CPT/HCPCS: 36415; 71045; 80048; 80053; 81001; 81270; 83036; 83690; 83735; 83880; 84100; 84443; 84484; 85025; 93005; 93306; 96372; 96374; 96376; 99285; A9270; G0378; J1650; 81003; 87086

== ENCOUNTER 2020-07-05 13:57 | Outpatient (CLI) | payer MEDICAID ==
[2020-07-05 18:13] LABS: HGB - HEMOGLOBIN 13.7 g/dL (12.0-16.0); MEAN CORPUSCULAR HGB CONC 30.9 g/dL (32.0-36.0); MEAN CORPUSCULAR VOLUME 93.9 fL (81.0-99.0); MEAN PLATELET VOLUME 10.2 fL (7.9-10.8); RED BLOOD COUNT 4.73 10^6/uL (4.20-5.40); RED CELL DISTRIBUTION WIDTH 14.7 % (12.0-15.0); WHITE BLOOD COUNT 9.2 x10^3/uL (4.8-10.8)
[2020-07-05 18:27] LABS: CALCIUM 9.6 mg/dL (8.5-10.3); CREATININE 0.9 mg/dL (0.4-1.0)
== END 2020-07-05 23:59 | disposition home or self-care (01) ==
LOC: LAB.WCP 13:57
PROVIDERS: ATTEND Family Medicine
DX: I50.9 Heart failure, unspecified (principal)
CPT/HCPCS: 36415; 80048; 83880; 85027

== ENCOUNTER 2021-02-23 09:45 | Outpatient (CLI) | payer MEDICAID ==
[2021-02-23 12:25] LABS: CREATININE 0.8 mg/dL (0.4-1.0); POTASSIUM 3.7 mmol/L (3.5-5.0)
== END 2021-02-23 09:46 | disposition home or self-care (01) ==
LOC: LAB.N 09:45
PROVIDERS: ATTEND Internal Medicine
DX: I50.22 Chronic systolic (congestive) heart failure (principal)
CPT/HCPCS: 36415; 80048

== ENCOUNTER 2021-03-27 22:17 | Emergency (ER) | payer MEDICAID ==
[2021-03-27] MEDS ORDERED: IBUPROFEN 600 MG TABLET PO STA (23:14)
[2021-03-28] MEDS ORDERED: oxyCODONE 5 MG TABLET PO STA (00:30)
--- NOTE | 2021-03-28 00:33 | ED Physician Documentation ---
History of Present Illness - Stated complaint Stated Complaint: R LEG PX - Chief complaint Chief Complaint: Ext Problem - History obtained from History obtained from: Patient - Additonal information Additional information: 55-year-old woman with history of osteoarthritis, chronic knee problems, presents with right knee pain after tripping over a bump onto her knees today. She had sudden onset pain localized food, radiating down to the feet, worse with range of motion of the knee, constant, severe, without associated abrasion or swelling. Review of Systems Skin: denies: Lesions, Abrasion (s), Laceration (s) Musculoskeletal: reports: Extremity pain, Joint pain Neurologic: denies: Focal weakness, Numbness PD PAST MEDICAL HISTORY - Past Medical History Past Medical History: Yes Cardiovascular: Congestive heart failure, Arrhythmia, Other Respiratory: None Neuro: Other Endocrine/Autoimmune: Type 2 diabetes GI: None SPECIAL AGENT IN CHARGE: Other : None HEENT: None Psych: None Musculoskeletal: Osteoarthritis Derm: None - Past Surgical History Past Surgical History: Yes General: Cholecystectomy Ortho: Other Cardiovascular:  Neuro: Other - Present Medications Home Medications: Ambulatory Orders Medication Instructions Recorded Confirmed Aspirin [Aspirin EC] 81 mg PO DAILY 06/27/20 06/27/20 Atorvastatin Calcium 40 mg PO DAILY PM 06/27/20 06/27/20 Metoprolol Succinate 200 mg PO BID 06/27/20 06/27/20 Sacubitril/Valsartan [Entresto 97 1 each PO BID 06/27/20 06/27/20 mg-103 mg Tablet] Spironolactone 50 mg PO DAILY 06/27/20 06/27/20 metFORMIN [Glucophage] 500 mg PO BIDWM 06/27/20 06/27/20 Furosemide [Lasix] 40 mg PO DAILY #30 tablet 06/28/20 Empagliflozin [Jardiance] 10 mg PO DAILY 03/27/21 03/27/21 - Allergies Allergies/Adverse Reactions: Allergies Allergy/AdvReac Type Severity Reaction Status Date / Time No Known Drug Allergies Allergy Verified 06/27/20 17:10 - Social History Does the pt smoke?: Yes Smoking Status: Current every day smoker Does the pt drink ETOH?: No Does the pt have substance abuse?: Yes - Immunizations Immunizations are current?: No Immunizations: TDAP >10years/unknown - POLST Patient has POLST: No POLST Status: Full Code (See advance care planning conversation under separate's dictation) PD ED PE NORMAL - Vitals Vital signs reviewed: Yes - General General: Alert and oriented X 3, No acute distress, Well developed/nourished - HEENT HEENT: Atraumatic, PERRL, EOMI - Derm Derm: Normal color, Warm and dry - Extremities Extremities: No deformity, No tenderness to palpate, Normal ROM s pain, Other (discomfort with rom of R knee. negative teja, anterior drawer sign. nontender and no excess laxity with valgus/varus maneuvers) Results - Vitals Vitals: Vital Signs - 24 hr 03/27/21 03/27/21 03/28/21 22:32 22:53 00:53 Temperature 35.8 C L 36.5 C 36.3 C L Heart Rate 98 98 89 Respiratory 18 18 18 Rate Blood Pressure 157/84 H 157/84 H 161/83 H O2 Saturation 97 97 97 Oxygen O2 Source Room air PD MEDICAL DECISION MAKING - ED course ED course: 55-year-old woman with history of chronic joint pain presents with knee pain after tripping and falling onto her knees today. She has no other injuries and her symptoms are improved after receiving pain medication. Her family will drive her home. Return precautions given. Patient will follow up with her primary doctor for referral to orthopedics as needed. She has crutches at home. Knee immobilizer placed. Departure - Departure Disposition: 01 Home, Self Care Clinical Impression: Knee pain Condition: Good Instructions: ED DANA Comments: You were seen in the emergency department for knee pain. There were no breaks in the bone on x-ray. Please return to the emergency department if you develop any new or worsening symptoms or have other concerns. Use your home crutches as needed. Follow-up with orthopedics if you do not have improvement in 1 week. Discharge Date/Time: 03/28/21 00:59
[2021-03-28 00:59] VITALS: BP 161/83
--- NOTE | 2021-03-28 08:37 | XRAY Report ---
PROCEDURE: Knee 2 View RT INDICATIONS: Pain status post fall TECHNIQUE: 2 views of the right knee(s) were acquired. COMPARISON: None. FINDINGS: Bones: No fractures or dislocations. No suspicious bony lesions. Mild degenerative changes. Soft tissues: No joint effusion. No suspicious soft tissue calcifications. IMPRESSION: No acute finding. Reviewed by: Benjie Colon MD on 03/28/2021 8:35 AM PDT Approved by: Benjie Colon MD on 03/28/2021 8:35 AM PDT Station ID: [id number]
--- NOTE | 2021-03-28 08:37 | XRAY Report ---
PROCEDURE: Tib/Fib RT INDICATIONS: pain s/p fall pain status post fall TECHNIQUE: 2 views of the right tibia and fibula were acquired. COMPARISON: None FINDINGS: Bones: No fractures or dislocations. No suspicious bony lesions. Soft tissues: No suspicious soft tissue calcifications or masses. IMPRESSION: No acute finding. Reviewed by: Benjie Colon MD on 03/28/2021 8:36 AM PDT Approved by: Benjie Colon MD on 03/28/2021 8:36 AM PDT Station ID: [id number]
== END 2021-03-28 00:59 | disposition home or self-care (01) ==
LOC: ED 22:17
DX: M25.561 Pain in right knee (principal); W01.0XXA Fall on same level from slipping, tripping and stumbling without subsequent striking against object, initial encounter; E11.9 Type 2 diabetes mellitus without complications; Z79.84 Long term (current) use of oral hypoglycemic drugs; F17.200 Nicotine dependence, unspecified, uncomplicated
CPT/HCPCS: 73560; 73590; 99282; 99283; A9270

== ENCOUNTER 2021-07-28 23:40 | Outpatient (CLI) | payer MEDICAID | END 2021-07-28 23:41 | disposition critical access hospital (66) | LOC: EMS 23:40 | DX: R42 Dizziness and giddiness (principal); R11.2 Nausea with vomiting, unspecified | CPT/HCPCS: A0425; A0427; A0999 ==

== ENCOUNTER 2021-07-28 23:58 | Emergency (ER) | payer MEDICAID ==
--- NOTE | 2021-07-29 00:34 | ED Physician Documentation ---
PD HPI NVD - Stated complaint Stated Complaint: DIZZY, N/V - Chief complaint Chief Complaint: Abd Pain - History obtained from History obtained from: Patient - History of Present Illness Timing - onset: Enter time (22:00) Timing - details: Abrupt onset Pain level max: 0 Pain level now: 0 Associated symptoms: Dizzy. No: Fever Contributing factors: No: Sick contact, Bad food, Travel, Recent antibiotics, Alcohol use Improved by: Laying still Worsened by: Moving Similar symptoms before: No diagnosis - Additonal information Additional information: while at home making dinner at approximately 10 PM, patient had sudden onset dizziness with nausea and vomiting. she has sensation of room spinning whenever she turns her head to either side. BIBA, fsbs 160 and given 4 mg zofran without improvement. denies h/o similar symptoms Review of Systems Constitutional: reports: Reviewed and negative Eyes: reports: Reviewed and negative Cardiac: reports: Reviewed and negative Respiratory: reports: Reviewed and negative GI: reports: Nausea, Vomiting. 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 : None HEENT: None Psych: None Musculoskeletal: Osteoarthritis Derm: None - Past Surgical History Past Surgical History: Yes General: Cholecystectomy Ortho: Other Cardiovascular:  Neuro: Other - Present Medications Home Medications: Ambulatory Orders Medication Instructions Recorded Confirmed Aspirin [Aspirin EC] 81 mg PO DAILY 06/27/20 06/27/20 Atorvastatin Calcium 40 mg PO DAILY PM 06/27/20 06/27/20 Metoprolol Succinate 200 mg PO BID 06/27/20 06/27/20 Sacubitril/Valsartan [Entresto 97 1 each PO BID 06/27/20 06/27/20 mg-103 mg Tablet] Spironolactone 50 mg PO DAILY 06/27/20 06/27/20 metFORMIN [Glucophage] 500 mg PO BIDWM 06/27/20 06/27/20 Furosemide [Lasix] 40 mg PO DAILY #30 tablet 06/28/20 Empagliflozin [Jardiance] 10 mg PO DAILY 03/27/21 03/27/21 Meclizine [Antivert] 25 mg PO Q6H PRN #20 tablet 07/29/21 Promethazine [Phenergan] 25 mg PO Q6H PRN #14 tablet 07/29/21 diazePAM [Valium] 5 mg PO TID PRN #15 tablet 07/29/21 - Allergies Allergies/Adverse Reactions: Allergies Allergy/AdvReac Type Severity Reaction Status Date / Time No Known Drug Allergies Allergy Verified 07/29/21 00:06 - Social History Does the pt smoke?: Yes Smoking Status: Current every day smoker Does the pt drink ETOH?: No Does the pt have substance abuse?: Yes - Immunizations Immunizations are current?: No Immunizations: TDAP >10years/unknown - POLST Patient has POLST: No POLST Status: Full Code (See advance care planning conversation under separate's dictation) PD ED PE NORMAL - Vitals Vital signs reviewed: Yes - General General: Alert and oriented X 3, Well developed/nourished, Other (lying still on stretcher, supine, not opening eyes) - HEENT HEENT: Other (lateral nystagmus in either direction) Results - Vitals Vitals: Oxygen O2 Source Room air - EKG (time done) No standard instances Rate: Rate (enter#) (87) Rhythm: NSR [place]: Normal Intervals: Normal MI QRS: Normal Ischemia: Normal ST segments Other comments: Other comments (ventricular bigeminy) - Labs Labs: Laboratory Tests 07/29/21 07/29/21 00:50 00:50 WBC 10.2 RBC 4.59 Hgb 13.4 Hct 42.2 MCV 91.9 MCH 29.2 MCHC 31.8 L RDW 14.3 Plt Count 314 MPV 10.0 Neut # (Auto) 8.4 H Lymph # (Auto) 1.3 L Dickey # (Auto) 0.4 Eos # (Auto) 0.0 Baso # (Auto) 0.1 Absolute Nucleated RBC 0.00 Nucleated RBC % 0.0 Sodium 132 L Potassium 3.5 Chloride 100 L Carbon Dioxide 22 Anion Gap 10.0 BUN 10 Creatinine 0.7 Estimated GFR (MDRD) 87 L Glucose 185 H Calcium 8.8 Total Bilirubin 0.8 AST 51 H ALT 43 Alkaline Phosphatase 104 Total Protein 7.8 Albumin 4.2 Globulin 3.6 Albumin/Globulin Ratio 1.2 Lipase 27 - Rads (name of study) CT head Radiology: Prelim report reviewed, See rad report PD MEDICAL DECISION MAKING - ED course Complexity details: reviewed results, re-evaluated patient, considered differential, d/w patient ED course: several hours in ED working on symptom resolution; would typically have admitted to [facility] but no beds available. after IV fluids, meclizine, phenergan, valium, and eppley maneuver, patient was eventually improved enough to be discharge, able to slowly ambulate with assistance. reassuring test results, HPI c/w peripheral vertigo Departure - Departure Disposition: 01 Home, Self Care Clinical Impression: Vertigo Condition: Good Instructions: ED Vertigo Unspecified Prescriptions: Meclizine [Antivert] 25 mg PO Q6H PRN #20 tablet PRN Reason: Vertigo Promethazine [Phenergan] 25 mg PO Q6H PRN #14 tablet PRN Reason: Nausea / Vomiting diazePAM [Valium] 5 mg PO TID PRN #15 tablet PRN Reason: Vertigo Comments: Use the meclizine as prescribed for vertigo. If this does not provide adequate relief of the vertigo/dizziness within 30-45 minutes, you can then try the diazepam. You can take phenergan for nausea/vomiting as well. All three of these medications can cause drowsiness; do not drive for at least six hours if you take any of these medications. Do not drive if you are experiencing any dizziness or drowsiness at any time. The prescriptions have been electronically submitted to [facility] pharmacy in [place]. Follow up with your primary care provider in 2-3 days Discharge Date/Time: 07/29/21 09:02
[2021-07-29] MEDS ORDERED: MECLIZINE 12.5 MG TABLET PO STA (00:38)
[2021-07-29 00:59] LABS: BASOPHILS # (AUTO) 0.1 10^3/uL (0.0-0.1); BASOPHILS % (AUTO) 0.7 %; EOSINOPHILS % (AUTO) 0.3 %; HCT - HEMATOCRIT 42.2 % (37.0-47.0); HGB - HEMOGLOBIN 13.4 g/dL (12.0-16.0); LYMPHOCYTES # (AUTO) 1.3 10^3/uL (1.5-3.5); LYMPHOCYTES % (AUTO) 12.4 %; MEAN CORPUSCULAR HEMOGLOBIN 29.2 pg (27.0-31.0); MEAN CORPUSCULAR HGB CONC 31.8 g/dL (32.0-36.0); MEAN CORPUSCULAR VOLUME 91.9 fL (81.0-99.0); MONOCYTES # (AUTO) 0.4 10^3/uL (0.0-1.0); MONOCYTES % (AUTO) 3.8 %; NEUTROPHILS # (AUTO) 8.4 10^3/uL (1.5-6.6); NEUTROPHILS % (AUTO) 82.3 %; PLT - PLATELET COUNT 314 10^3/uL (130-450); RED BLOOD COUNT 4.59 10^6/uL (4.20-5.40); RED CELL DISTRIBUTION WIDTH 14.3 % (12.0-15.0); WHITE BLOOD COUNT 10.2 x10^3/uL (4.8-10.8)
[2021-07-29] MEDS ORDERED: ONDANSETRON 4 MG/2 ML VIAL IVP STA (01:00)
[2021-07-29] MEDS ORDERED: ONDANSETRON 4 MG/2 ML VIAL ONE (01:01)
[2021-07-29 01:12] LABS: ALBUMIN 4.2 g/dL (3.2-5.5); ALBUMIN/GLOBULIN RATIO 1.2 (1.0-2.2); BILIRUBIN,TOTAL 0.8 mg/dL (0.2-1.0); CALCIUM 8.8 mg/dL (8.5-10.3); CREATININE 0.7 mg/dL (0.4-1.0); POTASSIUM 3.5 mmol/L (3.5-5.0); TOTAL PROTEIN 7.8 g/dL (6.7-8.2)
--- NOTE | 2021-07-29 01:52 | CT Report ---
PROCEDURE: HEAD WO INDICATIONS: severe dizziness TECHNIQUE: Noncontrast 4.5 mm thick angled axial sections acquired from the foramen magnum to the vertex. For r adiation dose reduction, the following was used: automated exposure control, adjustment of mA and/or kV according to patient size. COMPARISON: None. FINDINGS: Image quality: Suboptimal secondary to streak artifact from presumed clip in the region of the [place] of [place]. CSF spaces: Basal cisterns are patent. No extra-axial fluid collections. Ventricles are normal in size and shape. Brain: No midline shift. No intracranial masses or hemorrhage. [place]-white matter interface is norm al. Skull and face: Calvarium and visualized facial bones are intact, without suspicious lesions. Incid entally noted right frontal eloina hole. Sinuses: Visualized sinuses and mastoids are clear. IMPRESSION: No acute intracranial process. Reviewed by: Matheus Merlos MD on 07/29/2021 1:51 AM PDT Approved by: Matheus Merlos MD on 07/29/2021 1:51 AM PDT Station ID: [id number]
[2021-07-29] MEDS ORDERED: diazePAM INJ 5 MG/ML SYRINGE IVP STA (02:12)
[2021-07-29] MEDS ORDERED: PROMETHAZINE INJ 25 MG in SODIUM CHLORIDE 0.9% 50 ML IV STA (03:40)
[2021-07-29] MEDS ORDERED: SODIUM CHLORIDE 0.9% 500 ML IV STA (03:40)
[2021-07-29] MEDS ORDERED: PROMETHAZINE 25 MG/1 ML VIAL ONE (03:52)
[2021-07-29 04:27] VITALS: BP 156/86
== END 2021-07-29 09:02 | disposition home or self-care (01) ==
LOC: EDUNIT# → ED 23:58
DX: R42 Dizziness and giddiness (principal); R11.2 Nausea with vomiting, unspecified; R00.8 Other abnormalities of heart beat; E11.9 Type 2 diabetes mellitus without complications; Z79.84 Long term (current) use of oral hypoglycemic drugs; F17.200 Nicotine dependence, unspecified, uncomplicated; Z79.82 Long term (current) use of aspirin
CPT/HCPCS: 36415; 70450; 80053; 83690; 85025; 93005; 96365; 96375; 99283; 99284; A9270; J7040

== ENCOUNTER 2021-09-11 07:39 | Outpatient (CLI) | payer MEDICAID ==
[2021-09-11 14:39] LABS: CALCIUM 9.5 mg/dL (8.5-10.3); CREATININE 0.9 mg/dL (0.4-1.0); POTASSIUM 4.2 mmol/L (3.5-5.0)
== END 2021-09-11 07:40 | disposition home or self-care (01) ==
LOC: LAB.N 07:39
PROVIDERS: ATTEND Internal Medicine
DX: I47.2 Ventricular tachycardia (principal)
CPT/HCPCS: 36415; 80048

== ENCOUNTER 2024-01-03 20:18 | Emergency (ER) | payer MEDICARE, MEDICAID ==
[2024-01-03 21:35] LABS: BASOPHILS # (AUTO) 0.1 10^3/uL (0.0-0.1); BASOPHILS % (AUTO) 0.5 %; EOSINOPHILS # (AUTO) 0.1 10^3/uL (0.0-0.7); EOSINOPHILS % (AUTO) 0.6 %; HCT - HEMATOCRIT 43.4 % (37.0-47.0); HGB - HEMOGLOBIN 14.1 g/dL (12.0-16.0); LYMPHOCYTES # (AUTO) 2.1 10^3/uL (1.5-3.5); LYMPHOCYTES % (AUTO) 12.3 %; MEAN CORPUSCULAR HEMOGLOBIN 30.1 pg (27.0-31.0); MEAN CORPUSCULAR HGB CONC 32.5 g/dL (32.0-36.0); MEAN CORPUSCULAR VOLUME 92.5 fL (81.0-99.0); MEAN PLATELET VOLUME 9.7 fL (7.9-10.8); MONOCYTES # (AUTO) 0.9 10^3/uL (0.0-1.0); MONOCYTES % (AUTO) 5.4 %; NEUTROPHILS # (AUTO) 13.4 10^3/uL (1.5-6.6); NEUTROPHILS % (AUTO) 80.5 %; PLT - PLATELET COUNT 427 10^3/uL (130-450); RED BLOOD COUNT 4.69 10^6/uL (4.20-5.40); RED CELL DISTRIBUTION WIDTH 12.9 % (12.0-15.0); WHITE BLOOD COUNT 16.7 x10^3/uL (4.8-10.8)
[2024-01-03] MEDS: oxyCODONE 5 MG TABLET PO STA (21:37)
[2024-01-03 22:06] LABS: CALCIUM 10.2 mg/dL (8.5-10.3); CRP - C-REACTIVE PROTEIN 7.1 mg/dL (<0.5); POTASSIUM 4.2 mmol/L (3.5-4.5)
--- NOTE | 2024-01-03 23:08 | ED Physician Documentation ---
History of Present Illness - Stated complaint Stated Complaint: BILAT SHOULDER/ARM PX - Chief complaint Chief Complaint: Ext Problem - History obtained from History obtained from: Patient - History of Present Illness Timing: How many weeks ago (1) Pain level max: 8 Pain level now: 8 - Additonal information Additional information: 58-year-old female presents to the emergency department with pain in the bilateral hands about a week ago. Over the last 2 nights has had bilateral shoulder joint pain rating to the elbows. She does not have pain in the hands currently. She states has a history of osteoarthritis. No history of trauma. No fevers. No chills. Worse with movement, better with rest. Worse in the right shoulder than the left. Has not had similar symptoms previously. No changes to her medications. 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 HEENT: None Psych: None Musculoskeletal: Osteoarthritis Derm: None Other Past Medical History: Brain Aneurysm - Past Surgical History Past Surgical History: Yes General: Cholecystectomy Ortho: Other Neuro: Other - Present Medications Home Medications: Ambulatory Orders Medication Instructions Recorded Confirmed Aspirin [Aspirin EC] 81 mg PO DAILY 06/27/20 06/27/20 Atorvastatin Calcium 40 mg PO DAILY PM 06/27/20 06/27/20 Metoprolol Succinate 200 mg PO BID 06/27/20 06/27/20 Sacubitril/Valsartan [Entresto 97 1 each PO BID 06/27/20 06/27/20 mg-103 mg Tablet] Spironolactone 50 mg PO DAILY 06/27/20 06/27/20 metFORMIN [Glucophage] 500 mg PO BIDWM 06/27/20 06/27/20 Furosemide [Lasix] 40 mg PO DAILY #30 tablet 06/28/20 Empagliflozin [Jardiance] 10 mg PO DAILY 03/27/21 03/27/21 Meclizine [Antivert] 25 mg PO Q6H PRN #20 tablet 07/29/21 Promethazine [Phenergan] 25 mg PO Q6H PRN #14 tablet 07/29/21 diazePAM [Valium] 5 mg PO TID PRN #15 tablet 07/29/21 - Allergies Allergies/Adverse Reactions: Allergies Allergy/AdvReac Type Severity Reaction Status Date / Time No Known Drug Allergies Allergy Verified 01/03/24 20:34 - Social History Does the pt smoke?: Yes Smoking Status: Current every day smoker Does the pt drink ETOH?: No Does the pt have substance abuse?: Yes - Immunizations Immunizations are current?: No Immunizations: TDAP >10years/unknown - POLST Patient has POLST: No POLST Status: Full Code (See advance care planning conversation under separate's dictation) PD ED PE NORMAL - Vitals Vital signs reviewed: Yes - General General: Alert and oriented X 3, No acute distress - HEENT HEENT: PERRL, Moist mucous membranes - Neck Neck: Supple, no meningeal sign - Cardiac Cardiac: RRR, Strong equal pulses - Respiratory Respiratory: No respiratory distress, Clear bilaterally - Abdomen Abdomen: Soft, Non tender, Non distended - Derm Derm: Warm and dry - Extremities Extremities: Other (Limited range of motion's of the bilateral shoulder joints secondary to pain. Limited internal and external rotation as well as abduction. Limited flexion and extension as well. There is tenderness about the bilat eral glenohumeral joints. No skin changes. No erythema. No warmth.) - Neuro Neuro: Alert and oriented X 3 - Psych Psych: Normal mood, Normal affect Results - Vitals Vitals: Vital Signs - 24 hr 01/03/24 20:25 Temperature 36.8 C Heart Rate 81 Respiratory 16 Rate Blood Pressure 139/73 H O2 Saturation 100 Oxygen O2 Source Room air - Labs Labs: Laboratory Tests 01/03/24 01/03/24 01/03/24 21:30 21:30 21:30 WBC 16.7 H RBC 4.69 Hgb 14.1 Hct 43.4 MCV 92.5 MCH 30.1 MCHC 32.5 RDW 12.9 Plt Count 427 MPV 9.7 Neut # (Auto) 13.4 H Lymph # (Auto) 2.1 [place] # (Auto) 0.9 Eos # (Auto) 0.1 Baso # (Auto) 0.1 Absolute Nucleated RBC 0.00 Nucleated RBC % 0.0 ESR 48 H Sodium 134 L Potassium 4.2 Chloride 98 L Carbon Dioxide 27 Anion Gap 9.0 BUN 16 Creatinine 1.0 Estimated GFR (MDRD) 57 L Glucose 281 H Calcium 10.2 C-Reactive Protein 7.1 H PD Medical Decision Making - ED course Complexity details: reviewed results, re-evaluated patient, considered differential, d/w patient ED course: 58-year-old female presents to the emergency department with bilateral shoulder pain. Initially started as bilateral hand pain but the hand pain has resolved. History of osteoarthritis. She has an elevated white blood cell count at 16.7. Her sed rate is elevated at 48. Her CRP is elevated at 7.1. She is diabetic. The patient's pain improved but was not resolved with oxycodone. She was given a dose of IM Toradol and oral prednisone. At the time of signout she is awaiting bilateral shoulder x-ray and repeat evaluation after medication. Possible rheumatoid arthritis? Possible polymyalgia rheumatica? Possible osteoarthritis? Rotator cuff tenonitis? Depending on the x-ray and reassessment may benefit from pain medication and steroids for the next few days to see if this improves her symptoms. Patient is signed out to Dr. Garcia for repeat evaluation after x-ray findings. This document was made in part using voice recognition software. While efforts are made to proofread this document, sound alike and grammatical errors may occur. Departure - Departure Clinical Impression: Shoulder pain, bilateral Qualifiers: Chronicity: acute Qualified Code(s): M25.511 - Pain in right shoulder; M25.512 - Pain in left shoulder Condition: Good Forms: PCP List
[2024-01-03] MEDS: predniSONE 20 MG TABLET PO STA (23:31)
[2024-01-03] MEDS: KETOROLAC 30 MG/ML VIAL IM STA (23:31)
--- NOTE | 2024-01-03 23:46 | XRAY Report ---
PROCEDURE: Shoulder 2+V BL INDICATIONS: B shoulder pain TECHNIQUE: 3 views of each shoulder were acquired. COMPARISON: None. FINDINGS: Bones: No fractures or dislocations. No suspicious bony lesions. Visualized ribs appear intact. There is asymmetric degenerative change at the acromioclavicular joints, left slightly greater than r ight. Soft tissues: No suspicious soft tissue calcifications. The visualized lungs are within normal limi ts. IMPRESSION: No acute bony abnormality. Left greater than right mild to moderate degenerative osteoarthritis. Reviewed by: Pawel Escobar MD on 01/03/2024 11:45 PM PST Approved by: Pawel Escobar MD on 01/03/2024 11:45 PM PST Station ID: [id number]
--- NOTE | 2024-01-04 00:59 | ED Physician Documentation ---
ED Addendum - Addendum Addendum: 01/04/24 00:56 I received signout/turnover of care on this patient from Dr. Caldera; please see his note for complete H&P. In short, patient presents with complaint of gradual onset bilateral shoulder pain without specific inciting event approximately 1 to 2 weeks ago. The pain has been constant and steadily progressive. It is distinctly exacerbated with movement of the shoulders. Initially, the pain was in the bilateral hands but has progressed to involve both arms, again, predominantly both of the shoulders. She denies history of injury and denies history of the symptoms. Blood work reveals leukocytosis, elevated ESR and CRP. Results of bilateral shoulder xrays are pending at the time of the turnover of care. There are no remarkable findings on the shoulder x-rays; mild degenerative changes bilaterally are noted. I reevaluated the patient and discussed the results with her. She is not in any obvious/acute distress, but reports inadequate relief from the oxycodone, Toradol. Note that she was also given p.o. prednisone. We discussed options for further pain control and I am comfortable giving her another 5 mg p.o. oxycodone. I emphasized the need for follow-up with PCP as she will most likely need further testing. I electronically submitted a prescription for Percocet as well as a 10-day course of tapering prednisone to patient's pharmacy of choice.
[2024-01-04] MEDS: oxyCODONE 5 MG TABLET PO STA (01:00)
[2024-01-04 01:10] VITALS: BP 165/70; O2SAT 99
== END 2024-01-04 01:06 | disposition home or self-care (01) ==
LOC: ED 20:18
DX: M25.511 Pain in right shoulder (principal); M25.512 Pain in left shoulder; I50.9 Heart failure, unspecified; E11.9 Type 2 diabetes mellitus without complications; Z79.82 Long term (current) use of aspirin; Z79.84 Long term (current) use of oral hypoglycemic drugs; Z79.899 Other long term (current) drug therapy; F17.200 Nicotine dependence, unspecified, uncomplicated
CPT/HCPCS: 36415; 73030; 80048; 85025; 85651; 86140; 96372; 99284; A9270; J7512

== ENCOUNTER 2024-02-26 07:30 | Outpatient (CLI) | payer MEDICARE, MEDICAID ==
[2024-02-26 12:47] LABS: CALCIUM 9.6 mg/dL (8.5-10.3); CREATININE 0.9 mg/dL (0.6-1.3); POTASSIUM 4.7 mmol/L (3.5-4.5)
== END 2024-02-26 07:31 | disposition home or self-care (01) ==
LOC: LAB.N 07:30
PROVIDERS: ATTEND Nurse Practitioner
DX: I50.22 Chronic systolic (congestive) heart failure (principal); I42.8 Other cardiomyopathies
CPT/HCPCS: 36415; 80048

== ENCOUNTER 2024-04-22 16:02 | Inpatient (IN) | payer MEDICARE, MEDICAID ==
--- NOTE | 2024-04-22 17:37 | ED Physician Documentation ---
History of Present Illness - Stated complaint Stated Complaint: - Chief complaint Chief Complaint: General - History obtained from History obtained from: Patient - Additonal information Additional information: 58-year-old woman with well-controlled heart failure presents with about a weeks worth of a very painful abscess in the left labia. No systemic symptoms such as fevers or chills. There is some drainage. 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 HEENT: None Psych: None Musculoskeletal: Osteoarthritis Derm: None - Past Surgical History Past Surgical History: Yes General: Cholecystectomy Ortho: Other Neuro: Other - Present Medications Home Medications: Ambulatory Orders Medication Instructions Recorded Confirmed Aspirin [Aspirin EC] 81 mg PO DAILY 06/27/20 06/27/20 Atorvastatin Calcium 40 mg PO DAILY PM 06/27/20 06/27/20 Metoprolol Succinate 200 mg PO BID 06/27/20 06/27/20 Sacubitril/Valsartan [Entresto 97 1 each PO BID 06/27/20 06/27/20 mg-103 mg Tablet] Spironolactone 50 mg PO DAILY 06/27/20 06/27/20 metFORMIN [Glucophage] 500 mg PO BIDWM 06/27/20 06/27/20 Furosemide [Lasix] 40 mg PO DAILY #30 tablet 06/28/20 Empagliflozin [Jardiance] 10 mg PO DAILY 03/27/21 03/27/21 Meclizine [Antivert] 25 mg PO Q6H PRN #20 tablet 07/29/21 Promethazine [Phenergan] 25 mg PO Q6H PRN #14 tablet 07/29/21 diazePAM [Valium] 5 mg PO TID PRN #15 tablet 07/29/21 Oxycodone HCl/Acetaminophen 1 - 2 each PO Q6H PRN #14 tablet 01/04/24 [Percocet 5-325 mg Tablet] predniSONE [Deltasone] 10 mg PO [id number] #42 tab 01/04/24 - Allergies Allergies/Adverse Reactions: Allergies Allergy/AdvReac Type Severity Reaction Status Date / Time No Known Drug Allergies Allergy Verified 04/22/24 16:09 - Social History Does the pt smoke?: Yes Smoking Status: Current every day smoker Does the pt drink ETOH?: No Does the pt have substance abuse?: Yes - Immunizations Immunizations are current?: No Immunizations: TDAP >10years/unknown - POLST Patient has POLST: No POLST Status: Full Code (See advance care planning conversation under separate's dictation) PD ED PE NORMAL - Vitals Vital signs reviewed: Yes - General General: Alert and oriented X 3, No acute distress - Abdomen Abdomen: Non tender - Female Female : Other (Exam done with Sherrell MUJICA. She has a very extensive abscess in the left labia measuring probably 10 x 4 cm with a pinpoint of drainage posteriorly. No crepitance.) - Neuro Neuro: Alert and oriented X 3 Results - Vitals Vitals: Vital Signs - 24 hr 04/22/24 16:03 Heart Rate 89 Respiratory 24 Rate Blood Pressure 120/67 O2 Saturation 100 Oxygen O2 Source Room air - Labs Labs: Laboratory Tests 04/22/24 04/22/24 04/22/24 17:43 17:43 17:43 WBC 13.7 H RBC 4.48 Hgb 13.1 Hct 39.5 MCV 88.2 MCH 29.2 MCHC 33.2 RDW 13.7 Plt Count 353 MPV 10.4 Neut # (Auto) 11.1 H Lymph # (Auto) 1.5 [place] # (Auto) 0.8 Eos # (Auto) 0.1 Baso # (Auto) 0.1 Absolute Nucleated RBC 0.00 Nucleated RBC % 0.0 ESR Sodium 127 L Potassium 4.6 H Chloride 91 L Carbon Dioxide 23 Anion Gap 13.0 BUN 30 H Creatinine 1.4 H Estimated GFR (MDRD) 39 L Glucose 663 H* Lactic Acid 3.6 H* Calcium 9.8 Total Bilirubin 0.4 AST 6 L ALT 12 Alkaline Phosphatase 141 H C-Reactive Protein 6.0 H Total Protein 7.2 Albumin 3.7 Globulin 3.5 Albumin/Globulin Ratio 1.1 04/22/24 17:43 WBC RBC Hgb Hct MCV MCH MCHC RDW Plt Count MPV Neut # (Auto) Lymph # (Auto) [place] # (Auto) Eos # (Auto) Baso # (Auto) Absolute Nucleated RBC Nucleated RBC % ESR 37 H Sodium Potassium Chloride Carbon Dioxide Anion Gap BUN Creatinine Estimated GFR (MDRD) Glucose Lactic Acid Calcium Total Bilirubin AST ALT Alkaline Phosphatase C-Reactive Protein Total Protein Albumin Globulin Albumin/Globulin Ratio PD Medical Decision Making - ED course ED course: This 58-year-old woman who has well-controlled heart failure presents with a very large left labial abscess. It looks of a size not amenable to simple incision and drainage in the ED so I ordered some labs and gave her some Zosyn and ordered a CT. Labs are notable for white count of 13,000, severe hyperglycemia with INES and lactic acidosis. CT shows gas-filled abscess in the area of clinical concern. Initially I spoke with our general surgeon, Dr. Hamm who deferred to [facility]BE[facility] COVERER for surgical management given the location and subsequently spoke with Dr. Valdes who is happy to consult and defers to medicine for admission. Telehealth was consulted for admission at 7:07 PM. In the emergency department she received 1 mg of IV Dilaudid with good relief of her pain. 1 L of normal saline, IV Zosyn. Departure - Departure Disposition: [facility] DC/Xfer Clinical Impression: Abscess of labia Uncontrolled diabetes mellitus Qualifiers: Diabetes mellitus type: type 2 Glycemic state: with hyperglycemia Qualified Code(s): E11.65 - Type 2 diabetes mellitus with hyperglycemia Condition: Serious Forms: PCP List
[2024-04-22 17:50] LABS: BASOPHILS # (AUTO) 0.1 10^3/uL (0.0-0.1); BASOPHILS % (AUTO) 0.4 %; EOSINOPHILS # (AUTO) 0.1 10^3/uL (0.0-0.7); EOSINOPHILS % (AUTO) 0.6 %; HCT - HEMATOCRIT 39.5 % (37.0-47.0); HGB - HEMOGLOBIN 13.1 g/dL (12.0-16.0); LYMPHOCYTES # (AUTO) 1.5 10^3/uL (1.5-3.5); LYMPHOCYTES % (AUTO) 10.7 %; MEAN CORPUSCULAR HEMOGLOBIN 29.2 pg (27.0-31.0); MEAN CORPUSCULAR HGB CONC 33.2 g/dL (32.0-36.0); MEAN CORPUSCULAR VOLUME 88.2 fL (81.0-99.0); MEAN PLATELET VOLUME 10.4 fL (7.9-10.8); MONOCYTES # (AUTO) 0.8 10^3/uL (0.0-1.0); MONOCYTES % (AUTO) 5.8 %; NEUTROPHILS # (AUTO) 11.1 10^3/uL (1.5-6.6); PLT - PLATELET COUNT 353 10^3/uL (130-450); RED BLOOD COUNT 4.48 10^6/uL (4.20-5.40); RED CELL DISTRIBUTION WIDTH 13.7 % (12.0-15.0); WHITE BLOOD COUNT 13.7 x10^3/uL (4.8-10.8)
[2024-04-22] MEDS: PIPERACILLIN/TAZOBACTAM 3.375 GM in SODIUM CHLORIDE 0.9% MINIBAG 100 ML IV STA (17:50)
[2024-04-22] MEDS: HYDROmorphone 1 MG/ML CARPUJECT IVP STA (17:51)
[2024-04-22 18:09] LABS: ALBUMIN 3.7 g/dL (3.2-5.5); ALBUMIN/GLOBULIN RATIO 1.1 (1.0-2.2); BILIRUBIN,TOTAL 0.4 mg/dL (0.2-1.0); CALCIUM 9.8 mg/dL (8.5-10.3); CREATININE 1.4 mg/dL (0.6-1.3); POTASSIUM 4.6 mmol/L (3.5-4.5); TOTAL PROTEIN 7.2 g/dL (6.4-8.9)
[2024-04-22] MEDS ORDERED: iohexoL-300 100 ML VIAL ONE (18:26)
[2024-04-22] MEDS: SODIUM CHLORIDE 0.9% 1,000 ML IV STA ×2 (18:36→19:46)
[2024-04-22] MEDS: INSULIN REGULAR, HUMAN 300 UNIT/3 ML PEN IVP STA ×2 (18:36→19:46)
[2024-04-22] MEDS: iohexoL-300 100 ML VIAL IVP ONE (19:02)
--- NOTE | 2024-04-22 19:11 | CT Report ---
PROCEDURE: Pelvis W INDICATIONS: IV only, L labial abscess CONTRAST: 100ml [id number] TECHNIQUE: After the administration of intravenous contrast, a CT scan of the pelvis was performed. Images were recorded and evaluated at appropriate window settings. Reformats: axial MIP of the chest, coronal an d sagittal. For radiation dose reduction, the following was used: automated exposure control, adjustm ent of mA and/or kV according to patient size. COMPARISON: None FINDINGS: Image quality: Diagnostic. Bowel and peritoneum: No bowel distension. No pathologic free fluid. Colonic diverticulosis without a cute diverticulitis. Vessels: No infrarenal aortic aneurysm. Reproductive organs: Unremarkable. Bladder: No abnormal wall thickening, accounting for underdistention. Pelvic lymph nodes: No pelvic adenopathy by size criteria. Bones: No aggressive osseous abnormality. Other: No significant ventral or inguinal hernia. There is a left labial abscess measuring approximately 8.8 cm in AP dimension, 1.6 cm in transverse d imension, and 5.9 cm in craniocaudal dimension. There is surrounding subcutaneous fat stranding. No e vidence for extension into the peritoneal cavity. Multiple locules of gas within this cavity. IMPRESSION: Left labial abscess measuring 8.8 x 1.6 x 5.9 cm. No evidence for extension of inflammatory changes i nto the peritoneal cavity. Otherwise, no acute abnormalities identified in the pelvis. Chronic findings as above. Reviewed by: Jesu Cervantes MD on 04/22/2024 7:10 PM PDT Approved by: Jesu Cervantes MD on 04/22/2024 7:10 PM PDT Station ID: [id number]
[2024-04-22] MEDS ORDERED: ONDANSETRON 4 MG/2 ML VIAL IVP PRN (19:32)
[2024-04-22] MEDS ORDERED: ACETAMINOPHEN 325 MG TABLET PO PRN (19:32)
[2024-04-22] MEDS ORDERED: SODIUM CHLORIDE FLUSH 0.9% 10 ML SYRINGE IVP PRN (19:32)
[2024-04-22] MEDS ORDERED: ONDANSETRON ODT 4 MG TABLET TL PRN (19:32)
[2024-04-22] MEDS ORDERED: VANCOMYCIN 1 GM VIAL ONE (19:39)
[2024-04-22] MEDS: VANCOMYCIN INJ 1.25 GM in SODIUM CHLORIDE 0.9% 250 ML IV STA (19:46)
--- NOTE | 2024-04-22 19:52 | HISTORY & PHYSICAL EXAMINATION ---
Chief Complaint - Chief Complaint Chief Complaint: vaginal pain History of Present Illness - Admitted From Admitted From:: ED - History Obtained From Records Reviewed: yes History obtained from: patient Exam Limitations: none - History of Present Illness HPI Comment/Other: Mrs. Marie is a pleasant 58 y/oF with history of diabetes and hypertension. she presented to the ED for evaluation of vaginal pain. she explained that she had a boil located on her right and left labia. Both presented 10 days prior to her presentation. She initially attempted management with conservative means of warm compress and soaks. She explained the right boil resolve,but the left continued to worsen. Over the past week she has had increase swelling, erythema and drainage. In the ED, pain had a and 12x5cm induration.Abscess was confirmed by CT. Case was discussed with ObGyn oncall Dr. Elliott who agreed to see patient in consultation for further management. Patient met sepsis criteria upon presentation. she was also hyperglycemic wi thout acidosis or anion gap. Initial treatment with insulin, antibiotics and fluids were initiated in the ED. During my examination patient was resting comfortably in no acute distress. This interview was performed using real-time tele-health tools including live video. Patient provided consent to proceed with evaluation. 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 Mom is alive at 75 and has high blood pressure, diabetes, and a myocardial infarction October 2019. 3 brothers, 2 are obese. No other illnesses. 2 children, her son is obese, but no other illnesses. Social History Notes: In her younger years, mainly her 20s, she did marijuana and methamphetamines. She has not done it since that time. She has been smoking 1/2 pack/day since the age of 18. She has no history of alcohol abuse. 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 She has been from her first for over 5 or 6 years. lives with son in their own home. She moved in with her parents. Especially since they have had their heart attack and stroke this year, she is responsible for everything in the home. - Substance History Use: Uses substance without health or social issues: NONE - POLST Patient has POLST: No POLST Status: Full Code (See advance care planning conversation under separate's dictation) Meds/Allgy - Home Medications Home Medications: Ambulatory Orders Medication Instructions Recorded Confirmed Aspirin [Aspirin EC] 81 mg PO DAILY 06/27/20 06/27/20 Atorvastatin Calcium 40 mg PO DAILY PM 06/27/20 06/27/20 Metoprolol Succinate 200 mg PO BID 06/27/20 06/27/20 Sacubitril/Valsartan [Entresto 97 1 each PO BID 06/27/20 06/27/20 mg-103 mg Tablet] Spironolactone 50 mg PO DAILY 06/27/20 06/27/20 metFORMIN [Glucophage] 500 mg PO BIDWM 06/27/20 06/27/20 Furosemide [Lasix] 40 mg PO DAILY #30 tablet 06/28/20 Empagliflozin [Jardiance] 10 mg PO DAILY 03/27/21 03/27/21 Meclizine [Antivert] 25 mg PO Q6H PRN #20 tablet 07/29/21 Promethazine [Phenergan] 25 mg PO Q6H PRN #14 tablet 07/29/21 diazePAM [Valium] 5 mg PO TID PRN #15 tablet 07/29/21 Oxycodone HCl/Acetaminophen 1 - 2 each PO Q6H PRN #14 tablet 01/04/24 [Percocet 5-325 mg Tablet] predniSONE [Deltasone] 10 mg PO [id number] #42 tab 01/04/24 - Allergies Allergies/Adverse Reactions: Allergies Allergy/AdvReac Type Severity Reaction Status Date / Time No Known Drug Allergies Allergy Verified 04/22/24 16:09 Review of Systems - All Other Systems All Other Systems: reports: Reviewed and negative Exam - Vital Signs Reviewed Vital Signs: Yes Vital Signs: Vital Signs x48h Pulse Resp BP Pulse Ox 04/22/24 16:03 89 24 120/67 100 - Physical Exam General Appearance: positive: No acute distress, Alert Eyes Bilateral: positive: Normal inspection, PERRL Respiratory: positive: Chest non-tender, No respiratory distress, Breath sounds nml Cardiovascular: positive: Regular rate & rhythm, No murmur, No gallop Abdomen: positive: Non-tender, No organomegaly, Nml bowel sounds, No distention Skin: positive: Other (vaginal exam performed by ED physician. noted erythema, edema of left labia. draining abscess.) Neurologic/Psychiatric: positive: Oriented x3, Mood/affect nml Sepsis Event Note (H) - Evaluation Current Stage of Sepsis: Sepsis Possible source of Sepsis: positive: Skin/soft tissue, Wound - Sepsis Criteria Sepsis Criteria: WBC count greater than 12,000 or less than 4000, Metabolic: lactate > 2 mmol/L Conclusion/Plan - Problem List (1) Sepsis Conclusion/Plan: -source abscess -monitor parameter: trend lactic acid, wbc, vital (continuous telemetry -IVF resuscitation -cultures pending, continue empiric antibiotic Qualifiers: Sepsis type: sepsis due to unspecified organism Sepsis acute organ dysfunction status: with acute organ dysfunction Severe sepsis acute organ dysfunction type: acute renal failure Acute renal failure type: unspecified Severe sepsis shock status: without septic shock Qualified Code(s): A41.9 - Sepsis, unspecified organism; R65.20 - Severe sepsis without septic shock; N17.9 - Acute kidney failure, unspecified (2) Abscess of labia Conclusion/Plan: -no precipitating features. likely increased risk due to obesity and diabetes -Weigher Operator consulted plan for I and D pending improve BG levels -continue with empiric antibiotics vancomycin and zosyn for broad spectrum and MRSA coverage -IV fluids -NPO after midnight in anticipation of surgery in the AM -cultures pending (3) INES (acute kidney injury) Conclusion/Plan: -secondary to sepsis -gentle IV fluids, montior UOP and renal function with serial renal labwork as needed -avoid nephrotoxic regimen as appropriate (4) HTN (hypertension) Conclusion/Plan: -home regimen reviewed -will resume entreso and lopressor as tolerated Qualifiers: Hypertension type: essential hypertension Qualified Code(s): I10 - Essential (primary) hypertension (5) Uncontrolled diabetes mellitus Conclusion/Plan: -monitor q4h blood glucose checks, cover with insulin as needed. -will provide IV insulin for BG >300, repeat bmp to monitor anion gap and presence of acidosis as needed to quickly identify and treat DKA should it develop -follow up HbA1c, patient currently not on any medication as outpatient, has new PCP appointment pending Qualifiers: Diabetes mellitus type: type 2 Glycemic state: with hyperglycemia Qualified Code(s): E11.65 - Type 2 diabetes mellitus with hyperglycemia - Lab Results Fish Bones: 04/22/24 17:43 04/22/24 17:43 Core Measures - Anticipated LOS I expect patient to be DC'd or transferred within 96 hours.: Yes - DVT/VTE - Prophylaxis VTE/DVT Device ordered at admit?: Yes Telemedicine Consult Details - Provider Location & Consult Time Telemedicine consultation conducted via videoconferencing?: Yes
[2024-04-22 20:45] LABS: ESTIMATED AVERAGE GLUCOSE 332 mg/dL (70-100); HEMOGLOBIN A1c% 13.2 % (4.27-6.07)
[2024-04-22] MEDS: INSULIN LISPRO 300 UNIT/3 ML PEN SUBQ STA (21:04)
[2024-04-22] MEDS: SODIUM CHLORIDE 0.9% 1,000 ML IV SCH (21:25)
[2024-04-22] MEDS: MORPHINE 2 MG/ML CARPUJECT IVP PRN (21:26)
[2024-04-22] MEDS ORDERED: INSULIN LISPRO 300 UNIT/3 ML PEN SUBQ PRN (21:43)
[2024-04-22] MEDS: CLINDAMYCIN 900 MG/50 ML 900 MG/50 ML BAG IV SCH (22:55)
--- NOTE | 2024-04-22 22:57 | CONSULTATION NOTE ---
Referring Provider Name of Referring Provider:: Iveth Santillan MD Consult Date: 04/22/24 Chief Complaint - Chief Complaint Chief Complaint: labial abscess History of Present Illness - History of Present Illness HPI Comment/Other: Inés Marie is a 58 yo who is admitted from the ED with large labial abscess. She reports labial boils starting about 2 weeks ago, first on the right side and then on the left. The right side resolved, but the left side progressively worsened despite warm compresses and hot showers. She reports having severe constant pain, 8/10, which is what brought her to the ED this evening. She denies F/C at home. In the ED, CT notable for large left labial abscess measuring 8.8 x 1.6 x 5.9 cm. Multiple locules of gas noted. Labs significant for elevated WBC count and lactate concerning for sepsis, as well as severely elevated blood glucose of 663, and INES with Cr of 1.4. She was started on Vancomycin and Zosyn in the ED. History - Past Medical History Cardiovascular: reports: Congestive heart failure, Arrhythmia, Other Respiratory: reports: None Neuro: reports: Other Endocrine/Autoimmune: reports: Type 2 diabetes GI: reports: None MANAGER MAC: reports: Other : reports: None HEENT: reports: None Psych: reports: None Musculoskeletal: reports: Osteoarthritis Derm: reports: None MRSA Hx?: No - Past Surgical History General: reports: Cholecystectomy Ortho: reports: Other Neuro: reports: Other - Family & Social History Family History Comment/Other: Dad is 79 years old and is alive with high blood pressure, diabetes, and status post stroke November 2019. Mom is alive at 75 and has high blood pressure, diabetes, and a myocardial infarction October 2019. 3 brothers, 2 are obese. No other illnesses. 2 children, her son is obese, but no other illnesses. Social History Notes: In her younger years, mainly her 20s, she did marijuana and methamphetamines. She has not done it since that time. She has been smoking 1/2 pack/day since the age of 18. She has no history of alcohol abuse. 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 She has been from her first for over 5 or 6 years. lives with son in their own home. She moved in with her parents. Especially since they have had their heart attack and stroke this year, she is responsible for everything in the home. - Substance History Use: Uses substance without health or social issues: NONE - POLST Patient has POLST: No POLST Status: Full Code (See advance care planning conversation under separate's dictation) Meds/Allgy - Home Medications Home Medications: Ambulatory Orders Medication Instructions Recorded Confirmed Aspirin [Aspirin EC] 81 mg PO DAILY 06/27/20 06/27/20 Atorvastatin Calcium 40 mg PO DAILY PM 06/27/20 06/27/20 Metoprolol Succinate 200 mg PO BID 06/27/20 06/27/20 Sacubitril/Valsartan [Entresto 97 1 each PO BID 06/27/20 06/27/20 mg-103 mg Tablet] Spironolactone 50 mg PO DAILY 06/27/20 06/27/20 metFORMIN [Glucophage] 500 mg PO BIDWM 06/27/20 06/27/20 Furosemide [Lasix] 40 mg PO DAILY #30 tablet 06/28/20 Empagliflozin [Jardiance] 10 mg PO DAILY 03/27/21 03/27/21 Meclizine [Antivert] 25 mg PO Q6H PRN #20 tablet 07/29/21 Promethazine [Phenergan] 25 mg PO Q6H PRN #14 tablet 07/29/21 diazePAM [Valium] 5 mg PO TID PRN #15 tablet 07/29/21 Oxycodone HCl/Acetaminophen 1 - 2 each PO Q6H PRN #14 tablet 01/04/24 [Percocet 5-325 mg Tablet] predniSONE [Deltasone] 10 mg PO [id number] #42 tab 01/04/24 - Allergies Allergies/Adverse Reactions: Allergies Allergy/AdvReac Type Severity Reaction Status Date / Time No Known Drug Allergies Allergy Verified 04/22/24 16:09 Exam - Vital Signs Vital Signs: Vital Signs x48h Temp Pulse Pulse Resp BP BP Pulse Ox 04/22/24 19:56 97.3 F L 65 18 132/63 H 98 04/22/24 19:50 74 16 115/59 L 99 04/22/24 16:03 89 24 120/67 100 - Physical Exam Comments/Other: Gen: NAD Chest: non labored respirations Abd: soft, non tender Azure Developer: Left labia with very large area of induration approximately 10 x 5cm. There is a pinpoint hole at the inferior portion which with pressure drains foul smelling pus. Erythema of overlying skin. Breakdown of overlying skin noted. Conclusion/Plan - Lab Results Fish Bones: 04/22/24 17:43 04/22/24 17:43 Other Lab Results: Lactate 3.6 - Diagnostic Imaging Results Diagnostic Imaging Results: positive: Final report reviewed, Discussed with radiologist - Other Other Results/Comments: 58 yo with: Labial abscess Sepsis Uncontrolled diabetes I reviewed CT scan with radiologist chuck wagon driver, concern for necrotizing process with gas present. I also briefly discussed with General Surgeon chuck wagon driver. I would recommend transfer of care to tertiary center for surgical management given possible high complexity of case, may need extensive debridement. Recommendations were communicated to primary care team who will facilitate transfer. Kobe Valdes MD
[2024-04-22] MEDS: INSULIN REGULAR, HUMAN 300 UNIT/3 ML PEN SUBQ SCH (23:50)
[2024-04-23] MEDS: PIPERACILLIN/TAZOBACTAM 3.375 GM in SODIUM CHLORIDE 0.9% MINIBAG 100 ML IV SCH ×2 (02:03→10:19)
[2024-04-23] MEDS: oxyCODONE 5 MG TABLET PO PRN (02:03)
[2024-04-23] MEDS: SODIUM CHLORIDE FLUSH 0.9% 10 ML SYRINGE IVP SCH ×2 (02:10→16:17)
[2024-04-23 07:28] LABS: BASOPHILS % (AUTO) 0.3 %; EOSINOPHILS # (AUTO) 0.1 10^3/uL (0.0-0.7); EOSINOPHILS % (AUTO) 0.8 %; HCT - HEMATOCRIT 35.6 % (37.0-47.0); HGB - HEMOGLOBIN 11.8 g/dL (12.0-16.0); LYMPHOCYTES # (AUTO) 1.7 10^3/uL (1.5-3.5); MEAN CORPUSCULAR HEMOGLOBIN 29.5 pg (27.0-31.0); MEAN CORPUSCULAR HGB CONC 33.1 g/dL (32.0-36.0); MEAN PLATELET VOLUME 10.1 fL (7.9-10.8); MONOCYTES # (AUTO) 0.7 10^3/uL (0.0-1.0); MONOCYTES % (AUTO) 6.4 %; NEUTROPHILS # (AUTO) 8.1 10^3/uL (1.5-6.6); NEUTROPHILS % (AUTO) 75.4 %; PLT - PLATELET COUNT 271 10^3/uL (130-450); RED CELL DISTRIBUTION WIDTH 13.8 % (12.0-15.0); WHITE BLOOD COUNT 10.7 x10^3/uL (4.8-10.8)
--- NOTE | 2024-04-23 07:42 | CONSULTATION NOTE ---
Surgery Consult - Admit Date Hospital Admission Date: 04/22/24 - Consult Date Consult Date: 04/23/24 Requesting Provider: Jeffrey - Chief Complaint Chief Complaint: Left labial pain and swelling - Home Meds/Allergies Home Medications: Patient History Medication Instructions Recorded Confirmed Aspirin [Aspirin EC] 81 mg PO DAILY 06/27/20 06/27/20 Atorvastatin Calcium 40 mg PO DAILY PM 06/27/20 06/27/20 Metoprolol Succinate 200 mg PO BID 06/27/20 06/27/20 Sacubitril/Valsartan [Entresto 97 1 each PO BID 06/27/20 06/27/20 mg-103 mg Tablet] Spironolactone 50 mg PO DAILY 06/27/20 06/27/20 metFORMIN [Glucophage] 500 mg PO BIDWM 06/27/20 06/27/20 Empagliflozin [Jardiance] 10 mg PO DAILY 03/27/21 03/27/21 Allergies/Adverse Reactions: Allergies Allergy/AdvReac Type Severity Reaction Status Date / Time No Known Drug Allergies Allergy Verified 04/22/24 16:09 - Vital Signs Vital Signs: Last Vital Signs Temp 97.9 F 04/23/24 04:45 Pulse 71 04/23/24 04:45 Resp 16 04/23/24 04:45 BP 125/54 L 04/23/24 04:45 Pulse Ox 93 04/23/24 04:45 O2 Flow Rate Intake & Output: Intake & Output 04/20/24 04/21/24 04/22/24 04/23/24 23:59 23:59 23:59 23:59 Intake Total 2491.667 150 Balance 2491.667 150 - Lab Results Result Diagrams: 04/23/24 07:18 04/23/24 07:18 - Consultation Note Consultation Note: General Surgery Consult Note Inés is a 58 year old female who presented top the ED last evening with 5 days of left labial pain and swelling. She has been fatigued and not feeling well all week. She notices a similar but smaller swelling ion her right labia first but this resolved. The left labial swelling worsened progressively until she sought medical attention in our ED. In the ED she was AAO, with a leukocytosis and blood sugar >600. Left labial swelling was noted and a CT scan was performed which identified a gas containing abscess in the region of the left labia. I was contacted and advised the ED to contact the on-call product control and logistics analyst for their input but told them I would evaluate and manage the patient if they were not available. I was called by the on-call product control and logistics analyst and informed that she thought this was a necrotizing soft tissue infection and wanted to transfer the patient to a tertiary care facility for management. I agreed. Upon my arrival at the hospital this morning, I noticed that the patient had been admitted to the Medical Hospitalist Service by the Tele-hospitalist but that the infection had not been drained. Apparently, there were no facilities available to accept her in transfer. I spoke with Dr. Murphy, our daytime Medical Hospitalist and he agreed to consult me for evaluation of this patient. I examined Inés in her hospital room. She was awake and watching TV. She complained of left labial discomfort and told me that the infection had started to drain but the area was still very uncomfortable. She was awake, alert, oriented and in no acute distress. She was afebrile without tachycardia or hypotension. She has not eaten anything since midnight. Her lungs were clear and she did not have SOB. Her cardiac exam revealed NSR. Her abdominal examination was normal. With her in the frog-leg position I examined her genitalia. The right labia appeared normal. The soft tissue of the left labia was erythematous, edematous with palpable fluctuance. In the inferior aspect of the left labial was a small punctum that was draining purulence. The left labia was tender to palpation. Neither the perineum or an us was involved with this infectious process. Inés has received IV Zosyn, Vancomycin, and Clindamycin since admission. In addition, her blood sugar has decreased from >600 to around 250 this morning with insulin. Inés tells me that she continues to smoke cigarettes. She has CHF for which she takes medication (last EF was 25%) and Type 2 diabetes. She has no drug allergies and is not taking anticoagulants or anti-platelet medication other than low dose daily aspirin. Inés has not required vasopressors since admission and her VS remain stable. Assessment: 1) Left labial abscess. I can not exclude the possibility of a NSTI but this infection requires immediate source control. Transfer to a tertiary facility is not currently an option. 2) CHF 3) Type II DM Plan: 1) Immediate operative incision and drainage. We will attempt to perform the procedure with local and IV sedation due to her cardiac issues but she may require GETA depending upon her response to the sedation and local. Consent: Inés has been counseled for the procedure, it's indications, risks, benefits and expected outcome as well as alternative therapies. She understands that she will have a large, open wound that will require daily dressing changes and that if this indeed a NSTI, multiple return trips to the OR may be required to obtain source control and to perform dressing changes. Non-operative therapy will result in progression of the infection. We specifically discussed risks associated with anesthesia, bleeding, infection. We also discussed the possible need for a blood transfusion with its risks and benefits. I recommend that the patient proceed with the procedure. Inés understands, agrees, and consents to the proposed operative strategy and requests that we proceed with the procedure as outlined in our discussion. Chris Shah MD, [facility] General Surgery Service
[2024-04-23 07:43] LABS: ALBUMIN 3.2 g/dL (3.2-5.5); BILIRUBIN,TOTAL 0.5 mg/dL (0.2-1.0); CALCIUM 8.6 mg/dL (8.5-10.3); CREATININE 0.9 mg/dL (0.6-1.3); POTASSIUM 4.1 mmol/L (3.5-4.5); TOTAL PROTEIN 6.4 g/dL (6.4-8.9)
[2024-04-23] MEDS ORDERED: PROPOFOL 200 MG/20 ML VIAL IVP ONE (07:59)
[2024-04-23] MEDS ORDERED: LIDOCAINE-PF 2% 10 ML AMP SUBQ ONE (07:59)
[2024-04-23] MEDS ORDERED: BUPIVACAINE 0.25% PF 10 ML VIAL ONE (08:01)
[2024-04-23] MEDS ORDERED: LIDOCAINE 1%-EPI 1:100000 20 ML MDV ONE (08:01)
[2024-04-23] MEDS ORDERED: MIDAZOLAM 2 MG/2 ML VIAL ONE (08:02)
[2024-04-23] MEDS ORDERED: fentaNYL 100 MCG/2 ML VIAL ONE (08:02)
--- NOTE | 2024-04-23 08:02 | PROVIDER PROGRESS NOTE ---
Subjective - Prog Note Date Prog Note Date: 04/23/24 Prog Note Time: 07:59 - Subjective Pt reports feeling: Improved Subjective: Patient stated left labial abscess has been present for the past week causing her to be increasingly lethargic. Current pain level at a 5/10. She reported a right labial abscess that started prior to the left abscess; however it has since resolved. Current Medications - Current Medications Current Medications: Medications Ondansetron HCl (Ondansetron Odt 4 Mg Tablet) 4 mg TL Q6HR PRN PRN Reason: Nausea / Vomiting Acetaminophen (Acetaminophen 325 Mg Tablet) 650 mg PO Q4HR PRN PRN Reason: Pain 1 to 4, or Fever Insulin Human Regular (Insulin Regular, Human 300 Unit/3 Ml Pen) 3 - 11 unit SUBQ Q6HR LAINEY; Protocol Last Admin: 04/23/24 06:10 Dose: 7 unit Morphine Sulfate (Morphine 2 Mg/Ml Carpuject) 2 mg IVP Q4HR PRN PRN Reason: Pain 8 to 10 Last Admin: 04/22/24 21:26 Dose: 2 mg Oxycodone HCl (Oxycodone 5 Mg Tablet) 5 mg PO Q4HR PRN PRN Reason: Pain 5 to 7 Last Admin: 04/23/24 02:03 Dose: 5 mg Piperacillin Sod/Tazobactam (Sod 3.375 gm/ Sodium Chloride) 100 mls @ 200 mls/hr IV Q6H LAINEY Sodium Chloride (Normal Saline 0.9%) 1,000 mls @ 100 mls/hr IV .Q10H LAINEY Last Admin: 04/22/24 22:56 Dose: 0 mls/hr Objective - Vital Signs/Intake & Output Reviewed Vital Signs: Yes Vital Signs: Vital Signs x48h Temp Pulse Resp BP Pulse Ox 04/23/24 04:45 36.6 C 71 16 125/54 L 93 Intake & Output: Intake & Output 04/20/24 04/21/24 04/22/24 04/23/24 23:59 23:59 23:59 23:59 Intake Total 2491.667 200 Balance 2491.667 200 - Objective General Appearance: positive: No acute distress, Alert Eyes Bilateral: positive: Normal inspection, PERRL ENT: positive: ENT inspection nml, Pharynx nml Neck: positive: Nml inspection Respiratory: positive: Chest non-tender, No respiratory distress, Breath sounds nml Cardiovascular: positive: Regular rate & rhythm Abdomen: positive: Non-tender Back: positive: Nml inspection Extremities: positive: Non-tender, No pedal edema Neurologic/Psychiatric: positive: Oriented x3, Sensation nml, Mood/affect nml - Lab Results Fish Bones: 04/23/24 07:18 04/23/24 07:18 Other Labs: Lab Results x24hrs 04/23/24 04/23/24 04/23/24 Range/Units 07:18 07:18 07:18 WBC 10.7 (4.8-10.8) x10^3/uL RBC 4.00 L (4.20-5.40) 10^6/uL Hgb 11.8 L (12.0-16.0) g/dL Hct 35.6 L (37.0-47.0) % MCV 89.0 (81.0-99.0) fL MCH 29.5 (27.0-31.0) pg MCHC 33.1 (32.0-36.0) g/dL RDW 13.8 (12.0-15.0) % Plt Count 271 (130-450) 10^3/uL MPV 10.1 (7.9-10.8) fL Neut # (Auto) 8.1 H (1.5-6.6) 10^3/uL Lymph # (Auto) 1.7 (1.5-3.5) 10^3/uL [place] # (Auto) 0.7 (0.0-1.0) 10^3/uL Eos # (Auto) 0.1 (0.0-0.7) 10^3/uL Baso # (Auto) 0.0 (0.0-0.1) 10^3/uL Absolute Nucleated RBC 0.00 x10^3/uL Nucleated RBC % 0.0 /100WBC ESR (0-30) mm/Hr Sodium 135 (135-145) mmol/L Potassium 4.1 (3.5-4.5) mmol/L Chloride 105 (101-111) mmol/L Carbon Dioxide 23 (21-32) mmol/L Anion Gap 7.0 (6-13) BUN 19 (6-20) mg/dL Creatinine 0.9 (0.6-1.3) mg/dL Estimated GFR (MDRD) 65 L (>89) Glucose 271 H (74-104) mg/dL POC Whole Bld Glucose (70 - 100) mg/dL Estimat Average Glucose (70-100) mg/dL Hemoglobin A1c % (4.27-6.07) % Lactic Acid 0.9 (0.5-2.2) mmol/L Calcium 8.6 (8.5-10.3) mg/dL Total Bilirubin 0.5 (0.2-1.0) mg/dL AST 9 L (10-42) IU/L ALT 12 (10-60) IU/L Alkaline Phosphatase 122 H (42-121) IU/L C-Reactive Protein (<0.5) mg/dL Total Protein 6.4 (6.4-8.9) g/dL Albumin 3.2 (3.2-5.5) g/dL Globulin 3.2 (2.1-4.2) g/dL Albumin/Globulin Ratio 1.0 (1.0-2.2) 04/23/24 04/22/24 04/22/24 Range/Units 05:08 23:49 21:30 WBC (4.8-10.8) x10^3/uL RBC (4.20-5.40) 10^6/uL Hgb (12.0-16.0) g/dL Hct (37.0-47.0) % MCV (81.0-99.0) fL MCH (27.0-31.0) pg MCHC (32.0-36.0) g/dL RDW (12.0-15.0) % Plt Count (130-450) 10^3/uL MPV (7.9-10.8) fL Neut # (Auto) (1.5-6.6) 10^3/uL Lymph # (Auto) (1.5-3.5) 10^3/uL [place] # (Auto) (0.0-1.0) 10^3/uL Eos # (Auto) (0.0-0.7) 10^3/uL Baso # (Auto) (0.0-0.1) 10^3/uL Absolute Nucleated RBC x10^3/uL Nucleated RBC % /100WBC ESR (0-30) mm/Hr Sodium (135-145) mmol/L Potassium (3.5-4.5) mmol/L Chloride (101-111) mmol/L Carbon Dioxide (21-32) mmol/L Anion Gap (6-13) BUN (6-20) mg/dL Creatinine (0.6-1.3) mg/dL Estimated GFR (MDRD) (>89) Glucose (74-104) mg/dL POC Whole Bld Glucose 264 H 340 H 333 H (70 - 100) mg/dL Estimat Average Glucose (70-100) mg/dL Hemoglobin A1c % (4.27-6.07) % Lactic Acid (0.5-2.2) mmol/L Calcium (8.5-10.3) mg/dL Total Bilirubin (0.2-1.0) mg/dL AST (10-42) IU/L ALT (10-60) IU/L Alkaline Phosphatase (42-121) IU/L C-Reactive Protein (<0.5) mg/dL Total Protein (6.4-8.9) g/dL Albumin (3.2-5.5) g/dL Globulin (2.1-4.2) g/dL Albumin/Globulin Ratio (1.0-2.2) 04/22/24 04/22/24 04/22/24 Range/Units 20:42 19:21 19:20 WBC (4.8-10.8) x10^3/uL RBC (4.20-5.40) 10^6/uL Hgb (12.0-16.0) g/dL Hct (37.0-47.0) % MCV (81.0-99.0) fL MCH (27.0-31.0) pg MCHC (32.0-36.0) g/dL RDW (12.0-15.0) % Plt Count (130-450) 10^3/uL MPV (7.9-10.8) fL Neut # (Auto) (1.5-6.6) 10^3/uL Lymph # (Auto) (1.5-3.5) 10^3/uL [place] # (Auto) (0.0-1.0) 10^3/uL Eos # (Auto) (0.0-0.7) 10^3/uL Baso # (Auto) (0.0-0.1) 10^3/uL Absolute Nucleated RBC x10^3/uL Nucleated RBC % /100WBC ESR (0-30) mm/Hr Sodium (135-145) mmol/L Potassium (3.5-4.5) mmol/L Chloride (101-111) mmol/L Carbon Dioxide (21-32) mmol/L Anion Gap (6-13) BUN (6-20) mg/dL Creatinine (0.6-1.3) mg/dL Estimated GFR (MDRD) (>89) Glucose (74-104) mg/dL POC Whole Bld Glucose 290 H 561 H* 110 H (70 - 100) mg/dL Estimat Average Glucose (70-100) mg/dL Hemoglobin A1c % (4.27-6.07) % Lactic Acid (0.5-2.2) mmol/L Calcium (8.5-10.3) mg/dL Total Bilirubin (0.2-1.0) mg/dL AST (10-42) IU/L ALT (10-60) IU/L Alkaline Phosphatase (42-121) IU/L C-Reactive Protein (<0.5) mg/dL Total Protein (6.4-8.9) g/dL Albumin (3.2-5.5) g/dL Globulin (2.1-4.2) g/dL Albumin/Globulin Ratio (1.0-2.2) 04/22/24 04/22/24 04/22/24 Range/Units 17:43 17:43 17:43 WBC (4.8-10.8) x10^3/uL RBC (4.20-5.40) 10^6/uL Hgb (12.0-16.0) g/dL Hct (37.0-47.0) % MCV (81.0-99.0) fL MCH (27.0-31.0) pg MCHC (32.0-36.0) g/dL RDW (12.0-15.0) % Plt Count (130-450) 10^3/uL MPV (7.9-10.8) fL Neut # (Auto) (1.5-6.6) 10^3/uL Lymph # (Auto) (1.5-3.5) 10^3/uL [place] # (Auto) (0.0-1.0) 10^3/uL Eos # (Auto) (0.0-0.7) 10^3/uL Baso # (Auto) (0.0-0.1) 10^3/uL Absolute Nucleated RBC x10^3/uL Nucleated RBC % /100WBC ESR 37 H (0-30) mm/Hr Sodium (135-145) mmol/L Potassium (3.5-4.5) mmol/L Chloride (101-111) mmol/L Carbon Dioxide (21-32) mmol/L Anion Gap (6-13) BUN (6-20) mg/dL Creatinine (0.6-1.3) mg/dL Estimated GFR (MDRD) (>89) Glucose (74-104) mg/dL POC Whole Bld Glucose (70 - 100) mg/dL Estimat Average Glucose 332 H (70-100) mg/dL Hemoglobin A1c % 13.2 H (4.27-6.07) % Lactic Acid 3.6 H* (0.5-2.2) mmol/L Calcium (8.5-10.3) mg/dL Total Bilirubin (0.2-1.0) mg/dL AST (10-42) IU/L ALT (10-60) IU/L Alkaline Phosphatase (42-121) IU/L C-Reactive Protein (<0.5) mg/dL Total Protein (6.4-8.9) g/dL Albumin (3.2-5.5) g/dL Globulin (2.1-4.2) g/dL Albumin/Globulin Ratio (1.0-2.2) 04/22/24 04/22/24 Range/Units 17:43 17:43 WBC 13.7 H (4.8-10.8) x10^3/uL RBC 4.48 (4.20-5.40) 10^6/uL Hgb 13.1 (12.0-16.0) g/dL Hct 39.5 (37.0-47.0) % MCV 88.2 (81.0-99.0) fL MCH 29.2 (27.0-31.0) pg MCHC 33.2 (32.0-36.0) g/dL RDW 13.7 (12.0-15.0) % Plt Count 353 (130-450) 10^3/uL MPV 10.4 (7.9-10.8) fL Neut # (Auto) 11.1 H (1.5-6.6) 10^3/uL Lymph # (Auto) 1.5 (1.5-3.5) 10^3/uL [place] # (Auto) 0.8 (0.0-1.0) 10^3/uL Eos # (Auto) 0.1 (0.0-0.7) 10^3/uL Baso # (Auto) 0.1 (0.0-0.1) 10^3/uL Absolute Nucleated RBC 0.00 x10^3/uL Nucleated RBC % 0.0 /100WBC ESR (0-30) mm/Hr Sodium 127 L (135-145) mmol/L Potassium 4.6 H (3.5-4.5) mmol/L Chloride 91 L (101-111) mmol/L Carbon Dioxide 23 (21-32) mmol/L Anion Gap 13.0 (6-13) BUN 30 H (6-20) mg/dL Creatinine 1.4 H (0.6-1.3) mg/dL Estimated GFR (MDRD) 39 L (>89) Glucose 663 H* (74-104) mg/dL POC Whole Bld Glucose (70 - 100) mg/dL Estimat Average Glucose (70-100) mg/dL Hemoglobin A1c % (4.27-6.07) % Lactic Acid (0.5-2.2) mmol/L Calcium 9.8 (8.5-10.3) mg/dL Total Bilirubin 0.4 (0.2-1.0) mg/dL AST 6 L (10-42) IU/L ALT 12 (10-60) IU/L Alkaline Phosphatase 141 H (42-121) IU/L C-Reactive Protein 6.0 H (<0.5) mg/dL Total Protein 7.2 (6.4-8.9) g/dL Albumin 3.7 (3.2-5.5) g/dL Globulin 3.5 (2.1-4.2) g/dL Albumin/Globulin Ratio 1.1 (1.0-2.2) ABX Reporting Has patient been on IV antibiotics over the past 48 hours?: Yes Sepsis Event Note (H) - Evaluation Current Stage of Sepsis: Resolved Possible source of Sepsis: positive: Skin/soft tissue Assessment/Plan - Problem List (1) Abscess of labia Impression: Patient was admitted overnight and unable to be transferred to a tertiary facility. Left labia with large area of induration approximately 10 x 5 cm. Operative incision and drainage by Dr. Shah will be performed today. Since her admission she has received IV Vancomycin, Clindamycin, Zosyn; continue IV Zosyn and Clindamycin. (2) Sepsis Impression: Resolved. Vitals within normal limits. Does not meet SIRS criteria; qSOFA score 0. Will likely culture during I&D procedure today. Continue antibiotics. Qualifiers: Sepsis type: sepsis due to unspecified organism Sepsis acute organ dysfunction status: with acute organ dysfunction Severe sepsis acute organ dysfunction type: acute renal failure Acute renal failure type: unspecified Severe sepsis shock status: without septic shock Qualified Code(s): A41.9 - Sepsis, unspecified organism; R65.20 - Severe sepsis without septic shock; N17.9 - Acute kidney failure, unspecified (3) Uncontrolled diabetes mellitus Impression: Patient stated she was unaware she had diabetes until yesterday when she was admitted. [employer] home medications state she takes metformin 500mg twice daily; however she denies using this medication. In the ED blood glucose was 663mg/dL and A1c was 13.2%. With insulin use her blood glucose was 271mg/dL this morning. Diabetes education performed. Will continue glucose monitoring and plan to discharge her with outpatient meds. Qualifiers: Diabetes mellitus type: type 2 Glycemic state: with hyperglycemia Qualified Code(s): E11.65 - Type 2 diabetes mellitus with hyperglycemia (4) Acute on chronic systolic CHF (congestive heart failure) Impression: Patient takes metoprolol succinate, sacubitril/valsartan, empagliflozin, and spironolactone at home to manage HFrEF. Most recent echocardiogram from 2019 revealed an EF of 20%. She has a follow up appointment with her signs sales representative in [facility] in April. Echocardiogram ordered; pending results. (5) INES (acute kidney injury) Impression: Likely secondary to sepsis; improving with IV fluids. (6) HTN (hypertension) Impression: Blood pressure in the 100-130s/50-60s. Holding hypertensive medication at this time. Qualifiers: Hypertension type: essential hypertension (7) Morbid obesity Impression: See above.
[2024-04-23] MEDS ORDERED: SEVOFLURANE 250 ML LIQUID INH ONE (08:04)
[2024-04-23] MEDS ORDERED: ePHEDrine 50 MG/ML VIAL IVP ONE (08:29)
[2024-04-23] MEDS: LIDOCAINE 1%-EPI 1:100000 20 ML MDV SUBQ ONE ×2 (08:43)
[2024-04-23] MEDS: BUPIVACAINE 0.25% PF 10 ML VIAL SUBQ ONE ×2 (08:44)
[2024-04-23] MEDS ORDERED: ONDANSETRON 4 MG/2 ML VIAL IVP PRN (08:52)
[2024-04-23] MEDS ORDERED: ePHEDrine 50 MG/ML VIAL IVP PRN (08:52)
[2024-04-23] MEDS ORDERED: MORPHINE 2 MG/ML CARPUJECT IVP PRN (08:52)
[2024-04-23] MEDS ORDERED: ATROPINE ABBOJECT 1 MG/10 ML SYRINGE IVP PRN (08:52)
[2024-04-23] MEDS ORDERED: fentaNYL 100 MCG/2 ML VIAL IVP PRN (08:52)
[2024-04-23] MEDS ORDERED: NALOXONE 0.4 MG/ML VIAL IVP PRN (08:52)
[2024-04-23] MEDS: LACTATED RINGERS 1,000 ML IV ONE (09:00)
[2024-04-23] MEDS ORDERED: LACTATED RINGERS 1,000 ML IV SCH (09:00)
[2024-04-23] MEDS ORDERED: SODIUM CHLORIDE FLUSH 0.9% 10 ML SYRINGE IVP PRN (09:03)
--- NOTE | 2024-04-23 09:12 | ANESTHESIA ---
Pre-Anesthesia VS, & Labs - Diagnosis labial abscess with sepsis - Procedure I and D of L labial abscess Vital Signs: Temp Pulse Resp BP Pulse Ox O2 Flow Rate 36.6 C 69 14 134/62 H 93 04/23/24 04:45 04/23/24 09:05 04/23/24 09:05 04/23/24 09:05 04/23/24 09:05 Height: 5 ft 4 in Weight (kg): 97 kg Body Mass Index: 36.7 BMI Classification: Obese - NPO >8 hours - Is Patient ?: No - Lab Results Current Lab Results: Laboratory Tests 04/23/24 08:15: POC Whole Bld Glucose 229 H 04/23/24 07:18: Lactic Acid 0.9 04/23/24 07:18: WBC 10.7, RBC 4.00 L, Hgb 11.8 L, Hct 35.6 L, MCV 89.0, MCH 29.5, MCHC 33.1, RDW 13.8, Plt Count 271, MPV 10.1, Neut # (Auto) 8.1 H, Lymph # (Auto) 1.7, [place] # (Auto) 0.7, Eos # (Auto) 0.1, Baso # (Auto) 0.0, Absolute Nucleated RBC 0.00, Nucleated RBC % 0.0 04/23/24 07:18: Sodium 135, Potassium 4.1, Chloride 105, Carbon Dioxide 23, Anion Gap 7.0, BUN 19, Creatinine 0.9, Estimated GFR (MDRD) 65 L, Glucose 271 H, Calcium 8.6, Total Bilirubin 0.5, AST 9 L, ALT 12, Alkaline Phosphatase 122 H, Total Protein 6.4, Albumin 3.2, Globulin 3.2, Albumin/Globulin Ratio 1.0 04/23/24 05:08: POC Whole Bld Glucose 264 H 04/22/24 23:49: POC Whole Bld Glucose 340 H 04/22/24 21:30: POC Whole Bld Glucose 333 H 04/22/24 20:42: POC Whole Bld Glucose 290 H 04/22/24 19:21: POC Whole Bld Glucose 561 H* 04/22/24 19:20: POC Whole Bld Glucose 110 H 04/22/24 17:43: Estimat Average Glucose 332 H, Hemoglobin A1c % 13.2 H 04/22/24 17:43: ESR 37 H 04/22/24 17:43: Lactic Acid 3.6 H* 04/22/24 17:43: Sodium 127 L, Potassium 4.6 H, Chloride 91 L, Carbon Dioxide 23, Anion Gap 13.0, BUN 30 H, Creatinine 1.4 H, Estimated GFR (MDRD) 39 L, Glucose 663 H*, Calcium 9.8, Total Bilirubin 0.4, AST 6 L, ALT 12, Alkaline Phosphatase 141 H, C-Reactive Protein 6.0 H, Total Protein 7.2, Albumin 3.7, Globulin 3.5, Albumin/Globulin Ratio 1.1 04/22/24 17:43: WBC 13.7 H, RBC 4.48, Hgb 13.1, Hct 39.5, MCV 88.2, MCH 29.2, MCHC 33.2, RDW 13.7, Plt Count 353, MPV 10.4, Neut # (Auto) 11.1 H, Lymph # (Auto) 1.5, [place] # (Auto) 0.8, Eos # (Auto) 0.1, Baso # (Auto) 0.1, Absolute Nucleated RBC 0.00, Nucleated RBC % 0.0 Fish Bones: 04/23/24 07:18 04/23/24 07:18 Home Medications and Allergies Active Medications Acetaminophen (Acetaminophen 325 Mg Tablet) 650 mg PO Q4HR PRN PRN Reason: Pain 1 to 4, or Fever Atropine Sulfate (Atropine Abboject 1 Mg/10 Ml Syringe) 0.5 mg IVP Q5M PRN PRN Reason: Bradycardia Stop: 04/24/24 08:52 Ephedrine Sulfate (Ephedrine 50 Mg/Ml Vial) 10 mg IVP Q5M PRN PRN Reason: HYPOTENSION Stop: 04/24/24 08:52 Fentanyl (Fentanyl 100 Mcg/2 Ml Vial) 25 - 50 mcg IVP Q5M PRN PRN Reason: BREAKTHROUGH PAIN (2nd Choice) Stop: 04/24/24 08:52 Hydromorphone HCl (Hydromorphone 0.5 Mg/0.5 Ml Syringe) 0.2 - 0.6 mg IVP Q5M PRN PRN Reason: PAIN (First Choice) Stop: 04/24/24 08:52 Hydromorphone HCl (Hydromorphone 0.5 Mg/0.5 Ml Syringe) 0.5 mg IVP Q2H PRN PRN Reason: Severe Pain (Level 7-10) Sodium Chloride (Normal Saline 0.9%) 1,000 mls @ 100 mls/hr IV .Q10H [facility] Last Infusion: 04/22/24 22:56 Dose: 0 mls/hr Clindamycin/Sodium Chloride (Cleocin 900 Mg/50 Ml) 900 mg in 50 mls @ 50 mls/hr IV Q8HR [facility] Last Infusion: 04/23/24 07:57 Dose: Infused Piperacillin Sod/Tazobactam (Sod 3.375 gm/ Sodium Chloride) 100 mls @ 200 mls/hr IV Q6H [facility] Lactated Ringer's (Lr) 1,000 mls @ 100 mls/hr IV .Q10H [facility] Stop: 04/23/24 18:59 Acetaminophen (Acetaminophen) 1,000 mg in 100 mls @ 400 mls/hr IV ONCE ONE Stop: 04/23/24 09:21 Insulin Human Regular (Insulin Regular, Human 300 Unit/3 Ml Pen) 3 - 11 unit SUBQ Q6HR [facility]; Protocol Last Admin: 04/23/24 06:10 Dose: 7 unit Ketorolac Tromethamine (Ketorolac 15 Mg/Ml Vial) 15 mg IVP Q6H [facility] Stop: 04/24/24 10:01 Morphine Sulfate (Morphine 2 Mg/Ml Carpuject) 2 mg IVP Q4HR PRN PRN Reason: Pain 8 to 10 Last Admin: 04/22/24 21:26 Dose: 2 mg Morphine Sulfate (Morphine 2 Mg/Ml Carpuject) 2 - 4 mg IVP Q5M PRN PRN Reason: PAIN (3rd Choice) Stop: 04/24/24 08:52 Naloxone HCl (Naloxone 0.4 Mg/Ml Vial) 0.1 mg IVP Q2M PRN PRN Reason: RESP RATE <8 Stop: 04/24/24 08:52 Ondansetron HCl (Ondansetron 4 Mg/2 Ml Vial) 4 mg IVP Q6HR PRN PRN Reason: Nausea / Vomiting Ondansetron HCl (Ondansetron Odt 4 Mg Tablet) 4 mg TL Q6HR PRN PRN Reason: Nausea / Vomiting Ondansetron HCl (Ondansetron 4 Mg/2 Ml Vial) 4 mg IVP ONCE PRN PRN Reason: N/V (First Choice) Stop: 04/24/24 08:52 Oxycodone HCl (Oxycodone 5 Mg Tablet) 5 mg PO Q4HR PRN PRN Reason: Pain 5 to 7 Last Admin: 04/23/24 02:03 Dose: 5 mg Sodium Chloride (Sodium Chloride Flush 0.9% 10 Ml Syringe) 10 ml IVP PRN PRN PRN Reason: NEEDED PER PROVIDER ORDERS Sodium Chloride (Sodium Chloride Flush 0.9% 10 Ml Syringe) 10 ml IVP 0100,0900,1700 [facility] Last Admin: 04/23/24 02:10 Dose: Not Given Sodium Chloride (Sodium Chloride Flush 0.9% 10 Ml Syringe) 10 ml IVP 0100,0900,1700 [facility] Sodium Chloride (Sodium Chloride Flush 0.9% 10 Ml Syringe) 10 ml IVP PRN PRN PRN Reason: NEEDED PER PROVIDER ORDERS Aspirin [Aspirin EC] 81 mg PO DAILY 06/27/20 Atorvastatin Calcium 40 mg PO DAILY PM 06/27/20 Metoprolol Succinate 200 mg PO BID 06/27/20 Sacubitril/Valsartan [Entresto 97 mg-103 mg Tablet] 1 each PO BID 06/27/20 Spironolactone 50 mg PO DAILY 06/27/20 metFORMIN [Glucophage] 500 mg PO BIDWM 06/27/20 Empagliflozin [Jardiance] 10 mg PO DAILY 03/27/21 Allergies/Adverse Reactions: Allergies Allergy/AdvReac Type Severity Reaction Status Date / Time No Known Drug Allergies Allergy Verified 04/22/24 16:09 Anes History & Medical History - Anesthetic History Anesthesia Complications: reports: No previous complications Family history of Anesthesia Complications: Denies Family history of Malignant Hyperthermia: Denies - Medical History Cardiovascular: reports: Congestive heart failure, Arrhythmia, Other (Previous ECHO reviewed) Pulmonary: reports: None, Other (ECHO from 2019 identifies pulmonary hypertension) Gastrointestinal: reports: None, Colon polyps Urinary: reports: None Neuro: reports: Other (hx of aneurysm causing stroke like symptoms; had stent placed. no residual deficits) Musculoskeletal: reports: Osteoarthritis Endocrine/Autoimmune: reports: Type 2 diabetes Blood Disorders: reports: None Skin: reports: None Smoking Status: Current every day smoker Psychosocial: reports: Cannabis (3 times a week) History of Cancer?: Yes (cervical cancer; surgically removed; no chemo or radia tion) - Surgical History General: reports: Cholecystectomy Neurologic: reports: Other Orthopedic: reports: Other Results - EKG Results EKG Comparison: Reviewed EKG, Unchanged from prior EKG - Echo Results Echo Results: Report reviewed Exam General: Alert, Oriented x3, Cooperative, No acute distress Dental: Dentures full Upper, Poor dentition, Other (no lower teeth) Mouth Openin Fingerbreadth Neck Mobility: Normal Mallampati classification: II Thyromental Distance: 4-6 cm Respiratory: Lungs clear, Normal breath sounds, No respiratory distress, No accessory muscle use Cardiovascular: Regular rate Mental/Cognitive Status: Alert/Oriented X3, Normal for patient Cognitive Status: Within normal limits Plan Anesthesia Type: General Consent for Procedure(s) Verified and Reviewed: Yes Code Status: Attempt Resuscitation ASA classification: 3-Severe systemic disease Is this case an emergency?: Yes (per surgeon)
[2024-04-23] MEDS ORDERED: HYDROmorphone 1 MG/ML CARPUJECT ONE (09:13)
[2024-04-23] MEDS: HYDROmorphone 0.5 MG/0.5 ML SYRINGE IVP PRN (09:14)
[2024-04-23] MEDS: ACETAMINOPHEN 1,000 MG/100 ML 1,000 MG/100 ML BAG IV ONE (09:15)
--- NOTE | 2024-04-23 09:22 | OPERATIVE REPORT ---
Operative Report - General Admit Date: 04/22/24 - Other Other Information/Narrative: PROCEDURE DATE: 04/23/24 PREOPERATIVE DIAGNOSIS: Inés is a 58 year old female who has clinical, lab and image evidence consistent with a left labial abscess. Inés is taken to the operating room for I&D of the left labial abscess. POSTOPERATIVE DIAGNOSIS: Left labial abscess NAME OF PROCEDURE: Incision and drainage of Left labial abscess SURGEON: Chris Shah MD, FACS SUBSYSTEMS ENGINEER SURGEON: None ANESTHESIA: General LMA ESTIMATED BLOOD LOSS: 10 mL. DRAINS: None SPECIMEN: Culture of left labial abscess purulence (an/ae) COMPLICATIONS None FINDINGS: 8 cm in length, 2 cm in depth, and 4 cm in width abscess cavity in subcutaneous tissue under left labia. No evidence of a NSTI DESCRIPTION OF OPERATION: After consent for the procedure was obtained, the patient was brought to the operating room where in the supine position, general anesthesia was administered using an LMA device. A surgical time-out was performed, indicating the patient and the procedure to be performed. The patient was placed in a high lithotomy position, a ron catheter was inserted into the bladder and the genitalia, perineum, and perianal region prepped with Betadine and draped in a sterile fashion. 1% lidocaine with epinephrine in a 50/50 mix with 1/4% marcaine was used for local anesthesia. A 4 cm incision over the most fluctuant area was made and the subcutaneous abscess cavity entered. Purulence was evacuated and cultured. Digital exploration of the cavity disrupted loculations. The abscess cavity was 8 cm long, 4 cm wide and 2 cm deep. There was no evidence of a necrotizing soft tissue infection. The cavity was then cleansed with sterile saline using a Fidencio syringe. Reinspection of the cavity revealed no evidence of bleeding. A 1" wide iodine impregnated gauze wick was placed into the cavity and covered with 4 x 4 gauze and an ABD dressing. The dressing was held in place using an undergarment. The patient was awakened from general anesthesia. She tolerated the procedure well and was brought to the recovery room with stable vital signs.
[2024-04-23] MEDS ORDERED: HYDROmorphone 0.5 MG/0.5 ML SYRINGE ONE (09:38)
--- NOTE | 2024-04-23 09:42 | ANESTHESIA POST OP EVALUATION ---
Anesthesia Post Eval - Post Anesthesia Eval Vitals: Last Vital Signs Temp 36.7 C 04/23/24 09:25 Pulse 66 04/23/24 09:40 Resp 16 04/23/24 09:40 BP 131/67 H 04/23/24 09:40 Pulse Ox 99 04/23/24 09:40 O2 Flow Rate CV Function Including HR & BP: Stable Pain Control: Satisfactory Nausea & Vomiting: Negative Mental Status: Baseline Respiratory Status: Airway Patent Hydration Status: Satisfactory Anesthesia Complications: None
[2024-04-23] MEDS: KETOROLAC 15 MG/ML VIAL ONE (09:50)
[2024-04-23] MEDS: KETOROLAC 15 MG/ML VIAL IVP SCH (10:20)
[2024-04-23] MEDS: INSULIN LISPRO 300 UNIT/3 ML PEN SUBQ SCH (12:23)
--- NOTE | 2024-04-23 16:27 | PROVIDER PROGRESS NOTE ---
Progress Note General Surgery Afternoon Progress Note S: AAO; Feels better. There has been some drainage through the left vulva wou nd dressing that has required dressing change O: Vss, Afeb; Dressing dry and secure with undergarment Patient on SS insulin coverage, IV Zosyn/Clindamycin and SCD for mechanical VTEP Blood sugars improving A: No immediate post-op issues Plan: 1) Remove ron 2) Add Vanco to cover for possible MRSA. Can de-escalate when culture results are back 3) Dressing change tomorrow 4) Once blood sugars are controlled and she has been instructed in local wound care, she can be discharged to home on Bactrim DS for 7-10 days with follow-up in the surgery clinic in 2 weeks 5) Anticipate 24-48 hrs of post-op care before discharge. Temo Shah MD, FACS General Surgery Service
--- NOTE | 2024-04-23 16:40 | PHARMACY PROGRESS NOTE ---
- Therapy Status Vancomycin regimen day #: 1 Therapy status: Awaiting steady state Basis for treatment: Empirical Treatment indication: LABIAL ABSCESS Trough goal: 10-15 Concurrent antibiotics: ZOSYN, CLINDA - INES Risk Risk level for Acute Kidney Injury: High Acute Kidney Injury risk factors: Other nephrotoxic agents, Piperacillin/Tozobactam, Diabetes, Sepsis - Monitoring and Recommendation Clinical response to treatment: I&O Previous 24 hours 04/21/24 04/22/24 04/23/24 23:59 23:59 23:59 Intake Total 2741.667 200 Balance 2741.667 200 Lab Results 04/23/24 04/22/24 04/22/24 07:18 17:43 17:43 ESR 37 H BUN 19 30 H Creatinine 0.9 1.4 H Estimated GFR (MDRD) 65 L 39 L Areas for additional monitoring: IV to PO when appropriate, Therapy de- escalation based on culture results, Acute Kidney Injury, C. difficile infection risk reduction Pharmacy recommendation: Continue current regime (INITIATE 1000 MG Q12H TO TARGET TROUGH ~14.)
[2024-04-23] MEDS: VANCOMYCIN INJ 1 GM in SODIUM CHLORIDE 0.9% 250 ML IV ONE (17:31)
--- NOTE | 2024-04-23 17:32 | PHARMACY PROGRESS NOTE ---
- Best Possible Medication History Admit Date and Time: 04/23/24 0911 Processed by: Pharmacy Medications reviewed in ED?: No Medication History completed: Yes Patient Interview: Completed Secondary Source(s): Insurance records (REMOVE PER PATIENT: ASA, DIAZEPAM, JARDIANCE, MECLIZINE, METFORMIN, METOPROLOL, PERCOCET, PREDNISON, AND PHENERGAN.) As the person ultimately responsible for medication therapy, providers are able to order a medication from an existing home medication list in [facility] via the "Reconcile Routine" prior to Confirmation of that medication by technical support assistant. Such practice is discouraged except when the physician, in their clinical judgment, deems that a medical need exists for a medication without regard to previous use.
[2024-04-23] MEDS ORDERED: INSULIN GLARGINE-YFGN 300 UNIT/3 ML PEN SUBQ SCH (21:00)
[2024-04-23] MEDS: INSULIN GLARGINE-YFGN 300 UNIT/3 ML PEN SUBQ SCH (21:50)
[2024-04-23] MEDS: ATORVASTATIN 40 MG TABLET PO SCH (21:52)
[2024-04-23] MEDS: NYSTATIN POWDER 15 GM TOP SCH (21:52)
[2024-04-24 05:29] LABS: BASOPHILS % (AUTO) 0.3 %; EOSINOPHILS # (AUTO) 0.1 10^3/uL (0.0-0.7); EOSINOPHILS % (AUTO) 1.2 %; HCT - HEMATOCRIT 31.4 % (37.0-47.0); HGB - HEMOGLOBIN 9.8 g/dL (12.0-16.0); LYMPHOCYTES # (AUTO) 1.5 10^3/uL (1.5-3.5); LYMPHOCYTES % (AUTO) 19.7 %; MEAN CORPUSCULAR HEMOGLOBIN 28.8 pg (27.0-31.0); MEAN CORPUSCULAR HGB CONC 31.2 g/dL (32.0-36.0); MEAN CORPUSCULAR VOLUME 92.4 fL (81.0-99.0); MEAN PLATELET VOLUME 10.2 fL (7.9-10.8); MONOCYTES # (AUTO) 0.5 10^3/uL (0.0-1.0); MONOCYTES % (AUTO) 6.1 %; NEUTROPHILS # (AUTO) 5.5 10^3/uL (1.5-6.6); NEUTROPHILS % (AUTO) 70.5 %; PLT - PLATELET COUNT 228 10^3/uL (130-450); RED CELL DISTRIBUTION WIDTH 13.9 % (12.0-15.0); WHITE BLOOD COUNT 7.8 x10^3/uL (4.8-10.8)
[2024-04-24 05:55] LABS: CALCIUM 8.1 mg/dL (8.5-10.3); CREATININE 0.8 mg/dL (0.6-1.3); POTASSIUM 3.6 mmol/L (3.5-4.5)
--- NOTE | 2024-04-24 07:46 | PROVIDER PROGRESS NOTE ---
Subjective - Prog Note Date Prog Note Date: 04/24/24 Prog Note Time: 07:46 - Subjective Pt reports feeling: Improved Subjective: Patient states she is comfortable and pain has improved to a level 2/10. Current Medications - Current Medications Current Medications: Medications Acetaminophen (Acetaminophen 325 Mg Tablet) 650 mg PO Q4HR PRN PRN Reason: Pain 1 to 4, or Fever Atorvastatin Calcium (Atorvastatin 40 Mg Tablet) 40 mg PO HS [facility] Last Admin: 04/23/24 21:52 Dose: 40 mg Clindamycin/Sodium Chloride (Cleocin 900 Mg/50 Ml) 900 mg in 50 mls @ 50 mls/hr IV Q8HR [facility] Last Admin: 04/24/24 06:50 Dose: Infused Hydromorphone HCl (Hydromorphone 0.5 Mg/0.5 Ml Syringe) 0.5 mg IVP Q2H PRN PRN Reason: Severe Pain (Level 7-10) Insulin Glargine-yfgn (Insulin Glargine-Yfgn 300 Unit/3 Ml Pen) 20 unit SUBQ QPM [facility] Last Admin: 04/23/24 21:50 Dose: 20 unit Insulin Human Lispro (Insulin Lispro 300 Unit/3 Ml Pen) 3 - 11 unit SUBQ 0800,1200,1700,2100 [facility]; Protocol Last Admin: 04/24/24 08:45 Dose: 3 unit Morphine Sulfate (Morphine 2 Mg/Ml Carpuject) 2 mg IVP Q4HR PRN PRN Reason: Pain 8 to 10 Last Admin: 04/22/24 21:26 Dose: 2 mg Nystatin (Nystatin Powder 15 Gm) 1 applic TOP BID [facility] Last Admin: 04/24/24 09:03 Dose: 1 applic Ondansetron HCl (Ondansetron 4 Mg/2 Ml Vial) 4 mg IVP Q6HR PRN PRN Reason: Nausea / Vomiting Ondansetron HCl (Ondansetron Odt 4 Mg Tablet) 4 mg TL Q6HR PRN PRN Reason: Nausea / Vomiting Oxycodone HCl (Oxycodone 5 Mg Tablet) 5 mg PO Q4HR PRN PRN Reason: Pain 5 to 7 Last Admin: 04/23/24 14:26 Dose: 5 mg Piperacillin Sod/Tazobactam (Sod 3.375 gm/ Sodium Chloride) 100 mls @ 200 mls/hr IV Q6H [facility] Last Admin: 04/24/24 09:46 Dose: Infused Vancomycin HCl 1 gm/ Sodium (Chloride) 250 mls @ 167 mls/hr IV Q12H [facility] Last Admin: 04/24/24 09:46 Dose: 167 mls/hr Objective - Vital Signs/Intake & Output Reviewed Vital Signs: Yes Vital Signs: Vital Signs x48h Temp Pulse Resp BP Pulse Ox 04/24/24 06:19 37.3 C 74 20 107/46 L 94 04/24/24 02:52 36.6 C 83 20 125/58 L 95 Intake & Output: Intake & Output 04/21/24 04/22/24 04/23/24 04/24/24 23:59 23:59 23:59 23:59 Intake Total 2801.505.6449 650 Output Total 300 Balance 2580.513.4838 650 - Objective General Appearance: positive: No acute distress, Alert Eyes Bilateral: positive: Normal inspection ENT: positive: ENT inspection nml Neck: positive: Nml inspection Respiratory: positive: Chest non-tender, No respiratory distress Cardiovascular: positive: Regular rate & rhythm Abdomen: positive: Non-tender Back: positive: Nml inspection Skin: positive: Color nml Extremities: positive: Non-tender Neurologic/Psychiatric: positive: Oriented x3, Sensation nml, Mood/affect nml - Lab Results Fish Bones: 04/24/24 05:22 04/24/24 05:22 Other Labs: Lab Results x24hrs 04/24/24 04/24/24 04/24/24 Range/Units 07:36 05:22 05:22 WBC 7.8 (4.8-10.8) x10^3/uL RBC 3.40 L (4.20-5.40) 10^6/uL Hgb 9.8 L (12.0-16.0) g/dL Hct 31.4 L (37.0-47.0) % MCV 92.4 (81.0-99.0) fL MCH 28.8 (27.0-31.0) pg MCHC 31.2 L (32.0-36.0) g/dL RDW 13.9 (12.0-15.0) % Plt Count 228 (130-450) 10^3/uL MPV 10.2 (7.9-10.8) fL Neut # (Auto) 5.5 (1.5-6.6) 10^3/uL Lymph # (Auto) 1.5 (1.5-3.5) 10^3/uL [place] # (Auto) 0.5 (0.0-1.0) 10^3/uL Eos # (Auto) 0.1 (0.0-0.7) 10^3/uL Baso # (Auto) 0.0 (0.0-0.1) 10^3/uL Absolute Nucleated RBC 0.00 x10^3/uL Nucleated RBC % 0.0 /100WBC Sodium 135 (135-145) mmol/L Potassium 3.6 (3.5-4.5) mmol/L Chloride 107 (101-111) mmol/L Carbon Dioxide 21 (21-32) mmol/L Anion Gap 7.0 (6-13) BUN 17 (6-20) mg/dL Creatinine 0.8 (0.6-1.3) mg/dL Estimated GFR (MDRD) 74 L (>89) Glucose 173 H (74-104) mg/dL POC Whole Bld Glucose 175 H (70 - 100) mg/dL Calcium 8.1 L (8.5-10.3) mg/dL 04/23/24 04/23/24 04/23/24 Range/Units 20:42 17:17 09:11 WBC (4.8-10.8) x10^3/uL RBC (4.20-5.40) 10^6/uL Hgb (12.0-16.0) g/dL Hct (37.0-47.0) % MCV (81.0-99.0) fL MCH (27.0-31.0) pg MCHC (32.0-36.0) g/dL RDW (12.0-15.0) % Plt Count (130-450) 10^3/uL MPV (7.9-10.8) fL Neut # (Auto) (1.5-6.6) 10^3/uL Lymph # (Auto) (1.5-3.5) 10^3/uL [place] # (Auto) (0.0-1.0) 10^3/uL Eos # (Auto) (0.0-0.7) 10^3/uL Baso # (Auto) (0.0-0.1) 10^3/uL Absolute Nucleated RBC x10^3/uL Nucleated RBC % /100WBC Sodium (135-145) mmol/L Potassium (3.5-4.5) mmol/L Chloride (101-111) mmol/L Carbon Dioxide (21-32) mmol/L Anion Gap (6-13) BUN (6-20) mg/dL Creatinine (0.6-1.3) mg/dL Estimated GFR (MDRD) (>89) Glucose (74-104) mg/dL POC Whole Bld Glucose 253 H 245 H 232 H (70 - 100) mg/dL Calcium (8.5-10.3) mg/dL 04/23/24 Range/Units 08:15 WBC (4.8-10.8) x10^3/uL RBC (4.20-5.40) 10^6/uL Hgb (12.0-16.0) g/dL Hct (37.0-47.0) % MCV (81.0-99.0) fL MCH (27.0-31.0) pg MCHC (32.0-36.0) g/dL RDW (12.0-15.0) % Plt Count (130-450) 10^3/uL MPV (7.9-10.8) fL Neut # (Auto) (1.5-6.6) 10^3/uL Lymph # (Auto) (1.5-3.5) 10^3/uL [place] # (Auto) (0.0-1.0) 10^3/uL Eos # (Auto) (0.0-0.7) 10^3/uL Baso # (Auto) (0.0-0.1) 10^3/uL Absolute Nucleated RBC x10^3/uL Nucleated RBC % /100WBC Sodium (135-145) mmol/L Potassium (3.5-4.5) mmol/L Chloride (101-111) mmol/L Carbon Dioxide (21-32) mmol/L Anion Gap (6-13) BUN (6-20) mg/dL Creatinine (0.6-1.3) mg/dL Estimated GFR (MDRD) (>89) Glucose (74-104) mg/dL POC Whole Bld Glucose 229 H (70 - 100) mg/dL Calcium (8.5-10.3) mg/dL ABX Reporting Has patient been on IV antibiotics over the past 48 hours?: Yes Sepsis Event Note (H) - Evaluation Current Stage of Sepsis: Resolved Possible source of Sepsis: positive: Skin/soft tissue Assessment/Plan - Problem List (1) Abscess of labia Impression: Surgical I&D performed yesterday without complications. Culture of purulence obtained; pending results. Per Dr. Shah will be doing local wound care (wet to dry dressing) twice daily. Continue IV Zosyn, Clindamycin, Vancomycin. Will possibly discharge tomorrow pending wound culture results and hyperglycemic control. (2) Sepsis Impression: Resolved. Vitals within normal limits. Does not meet SIRS criteria; qSOFA score 0. Continue antibiotics. Qualifiers: Sepsis type: sepsis due to unspecified organism Sepsis acute organ dysfunction status: with acute organ dysfunction Severe sepsis acute organ dysfunction type: acute renal failure Acute renal failure type: unspecified Severe sepsis shock status: without septic shock Qualified Code(s): A41.9 - Sepsis, unspecified organism; R65.20 - Severe sepsis without septic shock; N17.9 - Acute kidney failure, unspecified (3) Uncontrolled diabetes mellitus Impression: In the ED on 04/22 blood glucose was 663mg/dL and A1c was 13.2%. Administered 21 total units of Humalog yesterday and 20 units of Glargine last night. This morning blood glucose was 173 mg/dL. Will plan to discharge patient with insulin. Will continue glucose monitoring and plan to discharge her once glycemic control is achieved. Qualifiers: Diabetes mellitus type: type 2 Glycemic state: with hyperglycemia Qualified Code(s): E11.65 - Type 2 diabetes mellitus with hyperglycemia (4) Acute on chronic systolic CHF (congestive heart failure) Impression: Patient takes metoprolol succinate, sacubitril/valsartan, empagliflozin, and spironolactone at home to manage HFrEF. Most recent echocardiogram from 2019 revealed an EF of 20%. She has a follow up appointment with her taker out in [facility] in April. Echocardiogram ordered; still pending results. (5) INES (acute kidney injury) Impression: Likely secondary to sepsis; continuing to improve with IV fluids. (6) HTN (hypertension) Impression: Blood pressure in the 100-120s/40-60s. Holding hypertensive medication at this time. Qualifiers: Hypertension type: essential hypertension (7) Morbid obesity Impression: See above.
--- NOTE | 2024-04-24 08:07 | PROVIDER PROGRESS NOTE ---
Progress Note General Surgery Progress Note Hospital Day # 2 POD # 1, I&D Left vulvar abscess Code Status: Full ASSESSMENT: 1) Left vulvar abscess - Source control of the left vulvar infection has been achieved with I&D and IV antibiotics 2) Hyperglycemia - improved with infection source control, carb controlled diet, and insulin PLAN: 1) Begin BID local wound care with wet to dry dressings (nursing) 2) May shower 3) De-escalate antibiotics once culture results return 4) Probably discharge tomorrow or as soon as hyperglycemic control achieved <><><><><> PERTINENT INTERVAL ISSUES: None S: Comfortable; tolerating a diet; discomfort in left groin much decreased OBJECTIVE: VSS, AFEB EXAMINATION: MENTAL STATUS: AAO; Comfortable EYES: Pupils equal, round and reactive to light, sclera anicteric, EARS, NOSE, MOUTH, THROAT: Normal hearing, Oral mucous membranes moist and without lesions; LUNGS: Clear to auscultation without wheezing; No use of accessory muscles to breathe CARDIOVASCULAR: Heart-NSR without murmurs; ABD: Soft, non-tender GENITALIA: left vulvar incision and drainage site inspected. The iodine gauze wick is removed and the surrounding tissue appears healthy. There is no purulence or associated cellulitis of the surrounding skin. She had very little discomfort with the dressing change. A fresh, saline dampened gauze was placed into the wound. LABS: WBC 7.8; H&H 31.4/9.8; Glucose 175 CULTURES: Pending IMAGING: None today ANTIMICROBIALS: Clindamycin, Zosyn, Vancomycin PAIN CONTROL: Dilaudid IV prn, Oxycodone PO prn, Ketorolac IV, Acetaminophen VTEP: Chemical: None Mechanical: SCD Chris Shah MD, FACS General Surgery Service
[2024-04-24] MEDS: VANCOMYCIN INJ 1 GM in SODIUM CHLORIDE 0.9% 250 ML IV SCH (09:46)
[2024-04-24] MEDS: HYDROmorphone 0.5 MG/0.5 ML SYRINGE IVP PRN (16:00)
[2024-04-24] MEDS ORDERED: SODIUM CHLORIDE 0.9% 250 ML IV ONE (23:00)
[2024-04-25 05:33] LABS: BASOPHILS # (AUTO) 0.1 10^3/uL (0.0-0.1); BASOPHILS % (AUTO) 0.8 %; EOSINOPHILS # (AUTO) 0.1 10^3/uL (0.0-0.7); EOSINOPHILS % (AUTO) 1.2 %; HCT - HEMATOCRIT 33.6 % (37.0-47.0); HGB - HEMOGLOBIN 10.8 g/dL (12.0-16.0); LYMPHOCYTES # (AUTO) 1.5 10^3/uL (1.5-3.5); LYMPHOCYTES % (AUTO) 20.1 %; MEAN CORPUSCULAR HEMOGLOBIN 28.9 pg (27.0-31.0); MEAN CORPUSCULAR HGB CONC 32.1 g/dL (32.0-36.0); MEAN CORPUSCULAR VOLUME 89.8 fL (81.0-99.0); MEAN PLATELET VOLUME 9.9 fL (7.9-10.8); MONOCYTES # (AUTO) 0.5 10^3/uL (0.0-1.0); MONOCYTES % (AUTO) 6.3 %; NEUTROPHILS # (AUTO) 5.1 10^3/uL (1.5-6.6); NEUTROPHILS % (AUTO) 67.5 %; PLT - PLATELET COUNT 220 10^3/uL (130-450); RED BLOOD COUNT 3.74 10^6/uL (4.20-5.40); RED CELL DISTRIBUTION WIDTH 13.4 % (12.0-15.0); WHITE BLOOD COUNT 7.5 x10^3/uL (4.8-10.8)
[2024-04-25 05:38] VITALS: O2SAT 96
--- NOTE | 2024-04-25 07:39 | PROVIDER PROGRESS NOTE ---
Progress Note General Surgery Progress Note Hospital Day # 2 - Left vulvar abscess POD # 1, I&D Left vulvar abscess Code Status: Full S: Comfortable; No left groin discomfort O: VSS, afeb; Left vulva wound packed and dressing dry. Labs: Glu ~ 220-250; H&H WNL; WBC Normal Micro - pending ASSESSMENT: 1) Left vulvar abscess - wound now healing by secondary intention 2) Hyperglycemia - persists PLAN: 1) Continue BID local wound care with wet to dry dressings (nursing to teach) 2) May shower 3) Switch from IV antibiotics to oral Bactrum DS BID for 7 days 4) OK for discharge from surgical perspective. I will contact clinic and arrange for her to have follow-up in 7-10 days Chris Shah MD, FACS General Surgery Service
[2024-04-25 08:34] VITALS: BP 178/87
[2024-04-25] MEDS ORDERED: CARVEDILOL 25 MG PO SCH (09:00)
--- NOTE | 2024-04-25 10:16 | Discharge Plan ---
Discharge Plan Problem Reviewed?: Yes Disposition: Home, Self Care Condition: Good Prescriptions: Sulfamethox/Trimeth 800/160 [Bactrim Ds] 1 tablet PO BID 7 Days #14 tablet Blood-Glucose Meter [Glucometer] 1 each MC DAILY #1 each Blood Sugar Diagnostic [Glucometer Strips] 1 each MC DAILY #30 strip metFORMIN [Glucophage] 500 mg PO BIDWM #60 tablet Pen Needle, Diabetic [Mini Pen Needle] 1 each MC DAILY #30 ea Insulin Glargine-Yfgn [Semglee] 25 unit SUBQ QPM #8 ml Lancet/Gluc Strip/Needle/Gauze [Tempo Refill Kit (with Gauze)] 1 each MC DAILY #1 kit Diet: Diabetic Activity Restrictions: Activity as Tolerated Instruction Topics: Log Blood Sugar, Hyperglycemia, Diabetes Resources, Diabetes Type 2 Coping, Blood Sugar Check, Insulin Injected, Insulin Types, Diabetes Healthy Meals, Diabetes Carbs, Injection Pens Dc, Diabetes Manage A1C Test Additional Instructions or Follow Up instructions: Please hold your Entresto while on Bactrim. Please ask your PCP for a referral to diabetic education. You will be on Lantus 25 units every night. No Smoking: If you smoke, Please STOP! Call for help. Follow-up with: Yulissa Saul MD [Primary Care Provider] -
[2024-04-25] MEDS: carvediloL 12.5 MG TABLET PO SCH (11:42)
[2024-04-25] MEDS: LOSARTAN 50 MG TABLET PO SCH (11:43)
--- NOTE | 2024-04-25 15:21 | DISCHARGE SUMMARY ---
"Discharge Summary Admit Date: 04/22/24 Discharge Date: 04/25/24 Discharging Provider: Latanya Murphy Primary Care Provider: Yulissa Saul Code Status: Attempt Resuscitation Condition at Discharge: Good Discharge Disposition: 01 Home, Self Care - CONSULTS | PROCEDURES Consultations: General surgery, MACHINE ASSEM[employer]ER [employer] Procedures: Incision and drainage of Left labial abscess - HOSPITAL COURSE Hospital Course: Patient is a 58-year-old female who presented to the ED due to complaints of vaginal pain. Upon evaluation she appeared to have a labial abscess. The case was discussed with MACHINE ASSEMBLER [employer] who agreed to evaluate the patient. Upon further evaluation she felt the patient was too high risk given findings of gas on CT scan. General surgery was consulted and performed an incision and drainage on 04/23 which was uncomplicated. An intraoperative culture was obtained which is currently pending. Patient was treated with IV vancomycin and Zosyn and her severe sepsis resolved quite rapidly. Patient was subsequently discharged on oral Bactrim for 7 days to complete 10 total days of antibiotics. Kindly follow-up on her wound culture to ensure she is in the correct oral antibiotics. Patient was also newly diagnosed with type 2 diabetes with an A1c of 13.2. She was discharged on Lantus 25 units as well as metformin. Given her low blood pressures, I did hold her home antihypertensives until she is able to finish her Bactrim. - ALLERGIES Allergies/Adverse Reactions: Allergies Allergy/AdvReac Type Severity Reaction Status Date / Time No Known Drug Allergies Allergy Verified 04/22/24 16:09 - MEDICATIONS Home Medications: Ambulatory Orders Medication Instructions Recorded Confirmed Atorvastatin Calcium 40 mg PO DAILY PM 06/27/20 04/23/24 carvediloL [Coreg] 50 mg PO BID 04/23/24 04/23/24 Blood Sugar Diagnostic [Glucometer 1 each MC DAILY #30 strip 04/25/24 Strips] Blood-Glucose Meter [Glucometer] 1 each MC DAILY #1 each 04/25/24 Insulin Glargine-Yfgn [Semglee] 25 unit SUBQ QPM #8 ml 04/25/24 Lancet/Gluc Strip/Needle/Gauze 1 each MC DAILY #1 kit 04/25/24 [Tempo Refill Kit (with Gauze)] Pen Needle, Diabetic [Mini Pen 1 each MC DAILY #30 ea 04/25/24 Needle] Sulfamethox/Trimeth 800/160 1 tablet PO BID 7 Days #14 tablet 04/25/24 [Bactrim Ds] metFORMIN [Glucophage] 500 mg PO BIDWM #60 tablet 04/25/24 - PHYSICAL EXAM AT DISCHARGE General Appearance: positive: No acute distress, Alert Respiratory: positive: Chest non-tender, No respiratory distress, Breath sounds nml Cardiovascular: positive: Regular rate & rhythm, No murmur, No gallop - LABS Result Diagrams: 04/25/24 05:14 04/24/24 05:22 - SEPSIS Current Stage of Sepsis: Resolved Possible source of Sepsis: Skin/soft tissue Sepsis Criteria: WBC count greater than 12,000 or less than 4000, Metabolic: lactate > 2 mmol/L - FOLLOW UP Follow Up: Follow up with general surgery and PCP. Her home antihypertensives were held on discharge due to low blood pressures. She can resume her Entresto upon completion of Bactrim. Patient has a new diagnosis of type 2 DM and will need an outpatient referral to diabetic education. She will also need a diabetic eye exam. - TIME SPENT Time Spent in Discharge (Minutes): 30"
== END 2024-04-25 11:45 | disposition home or self-care (01) | DRG 871 ==
LOC: ED 16:02 → MS2 19:33 → OBSVTOIN 04-23 09:11
PROVIDERS: ADMIT Hospitalist; ATTEND Family Medicine
DX: A41.9 Sepsis, unspecified organism (principal); I50.23 Acute on chronic systolic (congestive) heart failure; N76.4 Abscess of vulva; N17.9 Acute kidney failure, unspecified; I50.9 Heart failure, unspecified; R65.20 Severe sepsis without septic shock; E11.65 Type 2 diabetes mellitus with hyperglycemia; E87.20 Acidosis, unspecified; I11.0 Hypertensive heart disease with heart failure; M19.90 Unspecified osteoarthritis, unspecified site; F17.200 Nicotine dependence, unspecified, uncomplicated; E66.01 Morbid (severe) obesity due to excess calories; Z56.0 Unemployment, unspecified; Z68.36 Body mass index [BMI] 36.0-36.9, adult; Z79.4 Long term (current) use of insulin; Z79.82 Long term (current) use of aspirin; Z79.84 Long term (current) use of oral hypoglycemic drugs; Z79.899 Other long term (current) drug therapy; Z82.3 Family history of stroke; Z82.49 Family history of ischemic heart disease and other diseases of the circulatory system; Z83.3 Family history of diabetes mellitus
CPT/HCPCS: 36415; 56405; 72193; 80053; 83036; 83605; 85025; 85651; 86140; 96365; 96366; 96367; 96375; 99284; 99285; A9270; G0378; J0131; J1170; J3370; J3490; J7120; Q9967; 80048; 80202

== ENCOUNTER 2024-05-29 22:03 | Emergency (ER) | payer MEDICARE, MEDICAID ==
[2024-05-29 22:28] VITALS: BP 114/70; O2SAT 98
--- NOTE | 2024-05-29 23:10 | ED Physician Documentation ---
PD HPI UPPER EXT INJURY - Stated complaint Stated Complaint: RT HAND PX - Chief complaint Chief Complaint: Trauma Ext - History obtained from History obtained from: Patient - History of Present Illness Location: Right, Hand Type of injury: Fall Where injury occurred: Other (beach) Timing - onset: How many days ago (onset of redness and pain a day or so ago, without injury, then [place] today with much increased pain. No other joints involved. No prior similar type of pain/redness.) Review of Systems Constitutional: denies: Fever, Chills Skin: reports: Rash (uniform redness). denies: Abrasion (s), Laceration (s) PD PAST MEDICAL HISTORY - Past Medical History Past Medical History: Yes Cardiovascular: Congestive heart failure, Arrhythmia, Other Respiratory: None, Other Neuro: Other Endocrine/Autoimmune: Type 2 diabetes GI: None, Colon polyps [employer] C[employer] MECH[employer]IC: Other : None HEENT: None Psych: None Musculoskeletal: Osteoarthritis Derm: None - Past Surgical History Past Surgical History: Yes General: Cholecystectomy Ortho: Other Neuro: Other - Present Medications Home Medications: Ambulatory Orders Medication Instructions Recorded Confirmed Atorvastatin Calcium 40 mg PO DAILY PM 06/27/20 04/23/24 carvediloL [Coreg] 50 mg PO BID 04/23/24 04/23/24 Blood Sugar Diagnostic [Glucometer 1 each MC DAILY #30 strip 04/25/24 Strips] Blood-Glucose Meter [Glucometer] 1 each MC DAILY #1 each 04/25/24 Insulin Glargine-Yfgn [Semglee] 25 unit SUBQ QPM #8 ml 04/25/24 Lancet/Gluc Strip/Needle/Gauze 1 each MC DAILY #1 kit 04/25/24 [Tempo Refill Kit (with Gauze)] Pen Needle, Diabetic [Mini Pen 1 each MC DAILY #30 ea 04/25/24 Needle] Sulfamethox/Trimeth 800/160 1 tablet PO BID 7 Days #14 tablet 04/25/24 [Bactrim Ds] metFORMIN [Glucophage] 500 mg PO BIDWM #60 tablet 04/25/24 Naproxen 500 mg PO TID #15 tab 05/29/24 Oxycodone HCl/Acetaminophen 1 each PO Q6H PRN #10 tablet 05/29/24 [Percocet 5-325 mg Tablet] cephALEXin [Keflex] 500 mg PO TID #20 cap 05/29/24 - Allergies Allergies/Adverse Reactions: Allergies Allergy/AdvReac Type Severity Reaction Status Date / Time No Known Drug Allergies Allergy Verified 05/29/24 22:24 - Social History Does the pt smoke?: Yes Smoking Status: Current every day smoker Does the pt drink ETOH?: No Does the pt have substance abuse?: Yes - Immunizations Immunizations are current?: No Immunizations: TDAP >10years/unknown - POLST Patient has POLST: No POLST Status: Full Code (See advance care planning conversation under separate's dictation) PD ED PE NORMAL - Vitals Vital signs reviewed: Yes - General General: Alert and oriented X 3, Well developed/nourished, Other (appears in pain with movement of hand. ) Results - Vitals Vitals: Oxygen O2 Source Room air - Rads (name of study) right hand Relevant Findings:: Prelim report reviewed, EMP independent interpretation of test (no fractures nor FB.) PD Medical Decision Making - ED course Complexity details: reviewed results (no fractures nor FB. Can treat with nsaids/pain meds to cover gout/sprain/tendonitis. and Keflex for chance of infectious. ), considered differential (no skin lesions. Redness and marked tenderness dorsum of hand. fell and struck hand/bent it. Could be swelling and redness from inflammation, but is diffusely back of hand so consider cellulitis or gout.), d/w patient Departure - Departure Disposition: 01 Home, Self Care Clinical Impression: Hand contusion, Inflammation of right hand joint, Cellulitis Condition: Stable Record reviewed to determine appropriate education?: Yes Instructions: ED Infec Skin Cellulitis, ED Sprain Hand Follow-Up: Bird Adan, DNP, [employer] SPECIALIST, ASSEMBLY SUPERVISOR [Primary Care Provider] - Prescriptions: cephALEXin [Keflex] 500 mg PO TID #20 cap Naproxen 500 mg PO TID #15 tab Oxycodone HCl/Acetaminophen [Percocet 5-325 mg Tablet] 1 each PO Q6H PRN #10 tablet PRN Reason: pain Comments: Your hand x-ray appears normal without any signs of fractures. There is obvious is still the bruising and swelling from the injury. So sprain or bruise and you can decrease motion of the hand with the splint. Elevate ice and rest. Regarding the redness, it could be an inflammatory process such as tendinitis or gout. As such were treated with anti-inflammatories and pain medicine. However your concern for cellulitis or skin infection is appropriate and we should add an antibiotic as well. I sent prescriptions to your preferred pharmacy. Recheck if not improved well over the next few days and resolved fairly well in that timeframe. Forms: PCP List Discharge Date/Time: 05/30/24 00:15
[2024-05-29] MEDS: ACETAMINOPHEN 500 MG TABLET PO STA (23:46)
[2024-05-29] MEDS: cephALEXin 250 MG CAPSULE PO STA (23:46)
[2024-05-29] MEDS: oxyCODONE/ACET 5/325 Prepack 4 PO STA (23:46)
[2024-05-29] MEDS: oxyCODONE 5 MG TABLET PO STA (23:47)
--- NOTE | 2024-05-29 23:53 | XRAY Report ---
PROCEDURE: Hand 3+V RT INDICATIONS: fall with struck hand TECHNIQUE: 3 view(s) of the hand(s) acquired. COMPARISON: None FINDINGS: Bones: No fractures or dislocations. No suspicious bony lesions. Soft tissues: No suspicious soft tissue calcifications. IMPRESSION: Unremarkable hand radiographs Reviewed by: Mahesh Aleman MD on 05/29/2024 10:52 PM [facility] Approved by: Mahesh Aleman MD on 05/29/2024 10:52 PM [facility] Station ID: [id number]
== END 2024-05-30 00:15 | disposition home or self-care (01) ==
LOC: ED 22:03
DX: S60.221A Contusion of right hand, initial encounter (principal); L03.113 Cellulitis of right upper limb; W18.39XA Other fall on same level, initial encounter; Y92.832 Beach as the place of occurrence of the external cause; M19.041 Primary osteoarthritis, right hand; I50.9 Heart failure, unspecified; E11.9 Type 2 diabetes mellitus without complications; Z86.010 Personal history of colon polyps; Z79.84 Long term (current) use of oral hypoglycemic drugs; F17.200 Nicotine dependence, unspecified, uncomplicated
CPT/HCPCS: 73130; 99283; 99284; A9270

== ENCOUNTER 2024-06-04 14:25 | Outpatient (CLI) | payer MEDICARE, MEDICAID ==
[2024-06-04 18:12] LABS: BASOPHILS # (AUTO) 0.1 10^3/uL (0.0-0.1); BASOPHILS % (AUTO) 0.5 %; EOSINOPHILS # (AUTO) 0.1 10^3/uL (0.0-0.7); EOSINOPHILS % (AUTO) 0.3 %; HCT - HEMATOCRIT 37.3 % (37.0-47.0); HGB - HEMOGLOBIN 11.8 g/dL (12.0-16.0); LYMPHOCYTES # (AUTO) 1.7 10^3/uL (1.5-3.5); LYMPHOCYTES % (AUTO) 11.7 %; MEAN CORPUSCULAR HEMOGLOBIN 29.6 pg (27.0-31.0); MEAN CORPUSCULAR HGB CONC 31.6 g/dL (32.0-36.0); MEAN CORPUSCULAR VOLUME 93.7 fL (81.0-99.0); MEAN PLATELET VOLUME 9.7 fL (7.9-10.8); MONOCYTES % (AUTO) 6.8 %; NEUTROPHILS # (AUTO) 11.7 10^3/uL (1.5-6.6); NEUTROPHILS % (AUTO) 80.1 %; PLT - PLATELET COUNT 450 10^3/uL (130-450); RED BLOOD COUNT 3.98 10^6/uL (4.20-5.40); RED CELL DISTRIBUTION WIDTH 15.7 % (12.0-15.0); WHITE BLOOD COUNT 14.6 x10^3/uL (4.8-10.8)
[2024-06-04 18:31] LABS: ALBUMIN 3.8 g/dL (3.2-5.5); ALBUMIN/GLOBULIN RATIO 1.4 (1.0-2.2); ALKALINE PHOSPHATASE 120 IU/L (42-121); ALT ALANINE AMINOTRANSFERASE 12 IU/L (10-60); AST ASPARTATE AMINOTRANSFERASE 8 IU/L (10-42); BILIRUBIN,TOTAL 0.9 mg/dL (0.2-1.0); BUN - BLOOD UREA NITROGEN 13 mg/dL (6-20); CALCIUM 9.1 mg/dL (8.5-10.3); CARBON DIOXIDE - CO2 24 mmol/L (21-32); CHLORIDE 101 mmol/L (101-111); CHOL/HDL RATIO 3.2 (<4.4); CHOLESTEROL 123 mg/dL; CREATININE 0.7 mg/dL (0.6-1.3); GFR - MDRD 86 (>89); GLUCOSE 174 mg/dL (74-104); HDL CHOLESTEROL 38 mg/dL; LDL CHOLESTEROL,CALCULATED 55 mg/dL; LDL/HDL RATIO 1.4 (<4.4); POTASSIUM 3.8 mmol/L (3.5-4.5); SODIUM 133 mmol/L (135-145); TOTAL PROTEIN 6.6 g/dL (6.4-8.9); TRIGLYCERIDES 152 mg/dL; VLDL CHOLESTEROL 30 mg/dL
[2024-06-04 20:04] LABS: ESTIMATED AVERAGE GLUCOSE 189 mg/dL (70-100); HEMOGLOBIN A1c% 8.2 % (4.27-6.07)
== END 2024-06-04 14:26 | disposition home or self-care (01) ==
LOC: LAB.N 14:25
DX: E11.9 Type 2 diabetes mellitus without complications (principal); E78.5 Hyperlipidemia, unspecified; K65.1 Peritoneal abscess
CPT/HCPCS: 36415; 80053; 80061; 83036; 83721; 85025

== ENCOUNTER 2024-06-30 07:37 | Outpatient (CLI) | payer MEDICARE, MEDICAID ==
[2024-06-30 13:00] LABS: CRP - C-REACTIVE PROTEIN 6.9 mg/dL (<0.5); URIC ACID 4.6 mg/dL (2.3-6.6)
[2024-06-30 13:28] LABS: RHEUMATOID FACTOR POSITIVE (Negative)
== END 2024-06-30 07:38 | disposition home or self-care (01) ==
LOC: LAB.N 07:37
DX: M79.643 Pain in unspecified hand (principal); M25.50 Pain in unspecified joint
CPT/HCPCS: 36415; 84550; 85651; 86140; 86430